=== PATIENT | female | born 1965 | race Caucasian/White ===

== ENCOUNTER 2024-07-10 10:46 | Outpatient (AMB) | payer OTHER, MEDICARE, SELFPAY ==
--- NOTE | 2024-07-10 10:54 | A.OFFVIS_ITS ---
Vital Signs 07/10/24 10:56 Height 5 ft 3 in Weight 253 lb BMI 44.8 BP 180/102 H Blood Pressure Location Rt brachial Position Sitting Intake Visit Reasons: ENP-Mov dis/? tardive dyskinesia Intake Note: Patient presents for movement disorder Allergies chantix Allergy (Mild, Uncoded 07/10/24 10:58) behavior Wellbutrin Adverse Reaction (Unknown, Uncoded 07/10/24 10:57) Hives HPI Comments Details: 59 year old female referred for possible movement disorder Tardive-Dyskenesia like symptoms July is a smoker, with h/o of KATLYN, Fibromyalgia, MDD with anxiety, PTSD and chronic migraines. Her migraines were controlled with Amigov 100mg BID and Imitrex, however her Neurologist Dr. Valverde moved to [place]. She endorses migraines with aura, 3-4 x per week, last for hours to days, tried Botox with no relief. She feels like she is spinning, has nausea, vomiting, sensitivity to sounds and light, balance issues but not smell. She is dropping things and concerned about tremors in left hand >R while texting. She is able to complete all ADLs but does not drive due to depth perception with vision changes and >13-MVAs. She denies floaters, scotomas and blurry vision. She does snore, is obese BMI>44, denies gasping for air, speech or swallowing issues, uses CPAP machine nightly for insomnia. She has been more forgetful and does not remember her appointments. She was hospitalized recently for HTN BP 200/100 and treated with toradol. She did have one fall recently but she tripped in her garage and it was not related to gait or balance. She uses a cane for bilateral knee pain, bone on bone arthritic pain. She is followed by pulmonology, recent [address] Jun 2024. She is being seen for a L. Breast Abscess/infection, surgical consult Jul 11, 2024. She is being treated for the HTN by PCP. 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 Post traumatic stress disorder Alcohol abuse, in remission Kidney stone Osteoarthritis, knee Migraine headache Fibromyalgia Depression with anxiety Hypercholesteremia Benign hypertension Hot flashes Gastro-esophageal reflux disease without esophagitis Mild obstructive sleep apnea Morbid obesity Vitamin D deficiency Polyneuropathy, unspecified Surgical History (Updated 06/28/24 @ 08:19 by Ling Virk MA) History of lithotripsy History of eye surgery Family History (Updated 06/28/24 @ 08:22 by Ling Virk MA) Mother Hypertension Alcohol abuse Father Bypass graft mechanical complication Social History (Updated 06/28/24 @ 08:17 by Ling Virk MA) Patient Tobacco Use Status: Current everyday Tobacco user Cigarette Packs Per Day: 0.25 Review of Systems Const Reports as per HPI, Reports headache(s), Reports snoring and Reports weakness ENT Reports headache(s) Resp Reports snoring Neuro Reports headache(s) and Reports weakness Physical Exam Const General: cooperative, comfortable and no acute distress Nutritional Appearance: obese Orientation/consciousness: patient oriented x3 HEENT Head: Yes normal to inspection Ears: hearing grossly normal bilaterally Face and sinus: Yes normal facial exam and Yes face symmetric Mouth: tongue normal Eyes Pupils: Equal, round and reactive pupils present, Pupils normal by confrontation and Pupil accommodation reflex normal Neck Neck: Yes normal visual inspection, Yes full ROM and Yes supple Resp Effort & Inspection: normal respiratory effort and able to speak in complete sentences Neuro General: patient oriented x3 Cranial nerves: Yes CN's II-XII intact bilaterally, Yes Facial sensation intact/muscles of mastication intact, Yes Equal, round and reactive pupils present, Yes Normal facial strength present, Yes Midline tongue present, Yes Ability to bilaterally rotate head present and Yes Ability to bilaterally elevate shoulders present (difficulty with shoulder shrug) Gait exam (Neuro): Antalgic gait present (gait is off balance) Motor exam (neuro): Abnormal motor strength present (unable to lift with quads and push with triceps my hands to resistance) and Tremors during motor activity present (Mild tremor of the hands L>R) Deep tendon reflexes (DTR's): Right triceps reflex intensity grade: 2+, Left triceps reflex intensity grade: 2+, Rt Biceps (C5, C6): 2+, Left biceps reflex intensity grade: 2+, Right brachioradialis reflex intensity grade: 2+, Left brachioradialis reflex intensity grade: 2+, Right patellar reflex intensity grade: 2+, Left patellar reflex intensity grade: 2+, Right ankle reflex intensity grade: 2+ and Left ankle reflex intensity grade: 2+ Coordination: [id number] test normal and rapid alternating movements of the distal upper extremity normal Romberg Test: Negative Assessment & Plan Assessment & Plan (1) Migraine headache with aura: Code(s): G43.109 - Migraine with aura, not intractable, without status migrainosus Category: Medical Qualifiers: Status migrainosus presence: without status migrainosus Plan: Migraines with Aura will start patient on Sumatriptan 100mg BID Migraines wtih Aura will start patient on Amivog Auto injector 140mg subcutaneously q monthly (2) KATLYN on CPAP: Code(s): G47.33 - Obstructive sleep apnea (adult) (pediatric) Category: Medical Plan: Continue with the use of CPAP nightly and if necessary for daytime Naps as needed, patient continues to experience positive clinical effects. BP is elevated today, CPAP use and compliance >4 hours nightly helps with decreasing HTN and other co-morbidities. (3) Recurrent mild major depressive disorder with anxiety: Code(s): F33.0 - Major depressive disorder, recurrent, mild; F41.9 - Anxiety disorder, unspecified Category: Medical Plan: Patient Education: BP is 180/102 today in clinic will follow up with her to remind her to monitor the BP and use Valsartan exactly as prescribed by her PCP. Magnesium 400 mg PO at bedtime for relaxation. Vitamin D Meditation and yoga nightly can help with anxiety management. Addressed medication over use and strategies for coping with anxiety, lifestyle and diet changes. AHA recommends the Mediterranean diet and daily exercises, walking for weight reduction. Medications: New ketorolac maximum total duration of 5 days from all oral, intranasal, or parenteral formulations 10 mg PO Q6H PRN 1 tab 0RF pain erenumab-aooe (Aimovig Autoinjector) 140 mg subcut .q monthly 1 mL 6RF sumatriptan succinate take 1 tab at onset of headache; if no relief, may repeat 1 tab after at least 2 hrs; max = 2 tabs/24 hrs PO 14 tabs 6RF Coding Level of Care Code Est Pt Level 4 (67349) Complex EM visit Add On G2211 Diagnoses Migraine headache with aura G43.109 Status migrainosus presence: without status migrainosus KATLYN on CPAP G47.33 Recurrent mild major depressive disorder with anxiety F33.0; F41.9
[2024-07-10 10:56] VITALS: BP 180/102; BMI 44.8
== END 2024-07-10 11:38 | disposition home or self-care (01) ==
PROVIDERS: Visit Provider Physician Assistant Medical
DX: G43.E09 Chronic migraine with aura, not intractable, without status migrainosus (principal); G47.33 Obstructive sleep apnea (adult) (pediatric); F33.0 Major depressive disorder, recurrent, mild; F41.9 Anxiety disorder, unspecified
CPT/HCPCS: 99214

== ENCOUNTER 2024-11-13 11:04 | Outpatient (AMB) | payer OTHER, SELFPAY ==
[2024-11-13 11:08] VITALS: BP 116/74; PULSE 79; O2SAT 94; BMI 45.9
--- NOTE | 2024-11-13 11:08 | MHC.OFFVIS ---
Vital Signs 11/13/24 11:08 Height 5 ft 3 in Weight 259 lb 2 oz BMI 45.9 BP 116/74 Blood Pressure Location Lt brachial Position Sitting Pulse 79 Pulse Source Pulse Oximeter Pulse Oximetry (%) 94 Oxygen Delivery Method Room Air Intake Visit Reasons: follow up tardive dyskinesia Intake Note: Patient presents for follow up Dyskinesia. Patient states she has been getting a lot of headaches. 4-5 headaches per week. arms swollen. Left side gets numb occasionally. Allergies chantix Allergy (Mild, Uncoded 07/10/24 10:58) behavior Wellbutrin Adverse Reaction (Unknown, Uncoded 07/10/24 10:57) Hives HPI Comments Details: 59 year old female f/u of with Tardive Dyskinesia like symptoms and Chronic Migraines. July is a smoker, 1/2 pack a day with h/o KATLYN, followed by her Meat Service Team Member Primo Kay and Bharti for Compliance. She washes her mask, changes filters and fills the machine as needed. The snoring has decreased with cpap use, denies gasping for air, speech or swallowing issues, she still has insomnia. She has a h/o of Fibromyalgia she takes 1000mg of Naproxen and 800mg TID Gabapentin. She has MDD with anxiety, along with PTSD and sees her psychologist Dr. Powers at [facility] every 2-3 weeks via telethealth at [facility] She has chronic migraines were controlled with Amigov 100mg BID and Imitrex subcut. She endorses waking up with migraines with aura, 4-5x a week, last for 3-4 hours tried Botox with no relief, and she has seasonal allergies to grass pollen, dander. Imitrex injections are effective with onset of migraine, preventive is Aimovig. Migraines are painful, debilitating, with phonophobia/ photophobia/ with floater and blurry vision smells has nausea, vomiting, vertigo as if she is spinning internally and balance difficulties. She is concerned about tremors, nueropathy, parasthesias in bilateral legs worse at night R>L. She had a brown recluse bite on her r. gluteus and L. breast, ulcerations and wound debridement, it is healing. Memory issues with STM and LTM difficulties, forgetting everything if it is not recorded in her phone. Her BP is now well controlled. REPLACED BY [facility] Medical History Cognitive deficit due to 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 Post traumatic stress disorder Alcohol abuse, in remission Kidney stone Osteoarthritis, knee Migraine headache Fibromyalgia Depression with anxiety Hypercholesteremia Benign hypertension Hot flashes Gastro-esophageal reflux disease without esophagitis Mild obstructive sleep apnea Morbid obesity Vitamin D deficiency Polyneuropathy, unspecified Surgical History History of lithotripsy History of eye surgery Family History Mother Hypertension Alcohol abuse Father Bypass graft mechanical complication Social History Patient Tobacco Use Status: Current everyday Tobacco user Cigarette Packs Per Day: 0.25 Physical Exam Vital Signs: Last Vital Signs Pulse 79 11/13/24 11:08 BP 116/74 11/13/24 11:08 Pulse Ox 94 11/13/24 11:08 Oxygen Delivery Method Room Air 11/13/24 11:08 BMI result Body Mass Index 45.9 Const General: cooperative, comfortable and no acute distress Nutritional Appearance: obese Orientation/consciousness: patient oriented x3 HEENT Head: Yes normal to inspection Ears: hearing grossly normal bilaterally Face and sinus: Yes normal facial exam and Yes face symmetric Mouth: tongue normal Eyes Pupils: Equal, round and reactive pupils present, Pupils normal by confrontation and Pupil accommodation reflex normal Neck Neck: Yes normal visual inspection, Yes full ROM and Yes supple Resp Effort & Inspection: normal respiratory effort and able to speak in complete sentences Neuro General: patient oriented x3 Cranial nerves: Yes CN's II-XII intact bilaterally, Yes Facial sensation intact/muscles of mastication intact, Yes Equal, round and reactive pupils present, Yes Normal facial strength present, Yes Midline tongue present, Yes Ability to bilaterally rotate head present and Yes Ability to bilaterally elevate shoulders present (difficulty with shoulder shrug) Gait exam (Neuro): Antalgic gait present (gait is off balance) Motor exam (neuro): Abnormal motor strength present (unable to lift with quads and push with triceps my hands to resistance) and Tremors during motor activity present (Mild tremor of the hands L>R) Deep tendon reflexes (DTR's): Right triceps reflex intensity grade: 2+, Left triceps reflex intensity grade: 2+, Rt Biceps (C5, C6): 2+, Left biceps reflex intensity grade: 2+, Right brachioradialis reflex intensity grade: 2+, Left brachioradialis reflex intensity grade: 2+, Right patellar reflex intensity grade: 2+, Left patellar reflex intensity grade: 2+, Right ankle reflex intensity grade: 2+ and Left ankle reflex intensity grade: 2+ Coordination: [id number] test normal and rapid alternating movements of the distal upper extremity normal Romberg Test: Negative Assessment & Plan Assessment & Plan (1) Migraine headache with aura: Code(s): G43.109 - Migraine with aura, not intractable, without status migrainosus Category: Medical Qualifiers: Status migrainosus presence: without status migrainosus Intractability: intractable Qualified Code(s): G43.119 - Migraine with aura, intractable, without status migrainosus (2) KATLYN on CPAP: Code(s): G47.33 - Obstructive sleep apnea (adult) (pediatric) Category: Medical (3) Recurrent mild major depressive disorder with anxiety: Code(s): F33.0 - Major depressive disorder, recurrent, mild; F41.9 - Anxiety disorder, unspecified Category: Medical (4) Chronic migraine with aura: Code(s): G43.E09 - Chronic migraine with aura, not intractable, without status migrainosus Category: Medical Qualifiers: Status migrainosus presence: without status migrainosus Intractability: intractable Qualified Code(s): G43.E19 - Chronic migraine with aura, intractable, without status migrainosus Plan Chronic Migraines continue Sumatriptan 6mg subcutn once / PRN 30 days, preventive for migraines. Continue Ubrelvy 50mg PO PRN Migraine with onset of migraine with aura, preventive for migraines. Continue with Aimovog Auto injector 140mg subcutaneously q monthly maintenance therapy for migraines. Insomnia and Fragmented Sleep, may take melatonin 3-5mg PO at night. Sleep Compliance Report Request from Pulmonology Dr. Kay and or BHARTI Medications: New ubrogepant (Ubrelvy) take one 50mg of ubrelvy by mouth with onset of headache, may take one additional table if headache does not abort total 100mg PO daily. 50 mg PO ONCE PRN 30 tabs 1RF headache MDD 100mg G43.E09 - Chronic migraine with aura, not intractable, without status migrainosus Refilled erenumab-aooe (Aimovig Autoinjector) 140 mg subcut .q monthly 1 mL 6RF Patient Instructions: Patient Education: Continue with the use of CPAP nightly and if necessary for daytime naps as needed, patient continues to experience positive clinical effects, will f/u with Dr. Maloney office and [employer] for compliance monoitoring. Sleep Hygiene continue to see behavior therapist as needed, sleep in a dark room with temperatures below 68 degrees, no devices in bed, limit fluids 2 hours prior to bedtime. For Insomnia may diffuse essential oils, take melatonin 3-5mg or ambien or other sleep aid as needed. BMI is elevated patient declined weight management, will focus on diet and lifestyle management. Magnesium 400 mg PO at bedtime for relaxation and Vitamin D AHA recommends the Mediterranean diet and daily exercises, walking for weight reduction. Will consider EMG bilateral foot tremors / Neuropathy/ Parasthesias at next visit. Coding Level of Care Code Est Pt Level 4 (37845) Complex EM visit Add On G2211 Diagnoses Intractable migraine with aura without status migrainosus G43.119 Status migrainosus presence: without status migrainosus Intractability: intractable KATLYN on CPAP G47.33 Recurrent mild major depressive disorder with anxiety F33.0; F41.9 Intractable chronic migraine with aura and without status migrainosus G43.E19 Status migrainosus presence: without status migrainosus Intractability: intractable Time Spent (min) 45 Comment Improving
--- OUTSIDE RECORDS SUMMARY | 2024-11-13 13:40 | XMS_ITS | Encounter Summary ---
Author Organization [facility] Address [address] [place] [address] Care Team Providers Care Plaster Mixer Name Role Phone Brooke Osorio MD Primary Care Prov ider Reason for Visit * Reason Onset Date Comments Rectal Pain 09/17/2024 Encounter Details Date Type Department Care Team (Late st Contact Info) Description 09/17/2024 Telephone Adult Medicine - [facility] [address] [place] [id number] Brooke Osorio MD [address] [place] [address] Rectal Pain Social History Tobacco Use Types Packs/Day Years Used Date Smoking Tobacco: Every Day Cigarettes Last attempted to quit: 10/06/2017 Smokeless Tobacco: Never Alcohol Use Standard Drinks/Week Comments Not Currently 0 (1 standard drink = 0.6 oz pur e alcohol) Interpersonal Safety Answer Date Record ed Physical Abuse 08/31/2024 Verbal Abuse 08/31/2024 Comments No Sex and Gender Information Value Date Recorded Sex Assigned at Not on file Legal Sex Female 3:45 PM EST Gender Identity Not on file Sexual Orientation Not on file documented as of this encounter Progress Notes * Kingston Philip RN - 09/17/2024 4:01 PM EST Left message for pt to please return our call * Brooke Osorio MD - 09/17/2024 3:59 PM EST She should try lidocaine ointment to that area * Kingston Philip RN - 09/17/2024 3:07 PM EST Pt was seen for a wound on the buttocks it is a nasty painful wound not sure if there is eschar or scab but going to need debridement , pt was given tramadol but appointment is tomorrow and pt is scared because this is not helping the pain now * Rachel BabbLadarius - 09/17/2024 2:46 PM EST Patient call requires triage: Symptoms patient is presenting: Pt stated the tramadol that was prescribed is not strong enough andpt is in a lot of pain now.Pt is crying as she has a wound care visit tomorrow and is terrified forthe pain of the would on the right side of the cheek of her buttocks. How long has patient had these symptoms?: n/a For ALL patients calling to schedule any appointment (routine, sick visit, follow up, consult, etc.) in the outpatient setting please ask the following questions: Do you have fever of higher than 101, sore throat with difficulty swallowing or severe shortness ofbreath? no If YES to any of these above symptoms, send a message to triage and do not book. Red dot. If no, an audio or video visit should be booked. Have you had close contact with someone with Coronavirus in the last 14 days? no Have you traveled abroad? no Have you traveled recently to another state outside of [place], [place], [place], [place], [place], [place], [place]? no o If yes, did you quarantine for 14 days or have a negative covid test? no If yes to any of the above, patient is not to be scheduled in office until after 14 day quarantine or negative covid test. If pain or injury related was it due to an accident at work or from a motor vehicle accident? If yes, date of accident/Injury: No If yes, gather 3rd constitution party insurance information Third Green Party Information: n/a PCP: Brooke Osorio MD Payor: [employer] / Plan: [facility] CHOICE PLUS / Product Type: *No Product type* / documented in this encounter Plan of Treatment Upcoming Encounters Date Type Department Care Team (Late st Contact Info) Description 11/30/2024 10:00 AM EDT Medication Management Hypertension Clinic - [facility] [address] [place] [address] Zina Renteria, KaliaD [address] [place] [address] 12/24/2024 10:50 AM EDT Appointment Radiology Department - [address] [address] 12/24/2024 11:20 AM EDT Appointment Radiology Department - [address] [address] 01/16/2025 10:30 AM EDT Office Visit Adult Medicine - [facility] [address] [place] [address] Joesph Perez PA [address] [place] [address] documented as of this encounter Visit Diagnoses Not on filedocumented in this encounter Care Teams Plaster Mixer Relationship Specialty Start Date End Date Brooke Osorio MD [address] [place] [address] PCP - General Internal Medicine 07/10/24 documented as of this encounter
--- OUTSIDE RECORDS SUMMARY | 2024-11-13 13:40 | XMS_ITS | Encounter Summary ---
Author Organization [facility] Address [address] [place] [address] Care Team Providers Care Beamer Hand Name Role Phone Brooke Osorio MD Primary Care Prov ider Reason for Visit * Reason Onset Date Comments Blood Pressure 11/01/2024 152/80 Encounter Details Date Type Department Care Team (Late st Contact Info) Description 11/01/2024 Telephone Adult Medicine - [place] [address] [place] [id number] Brooke Osorio MD [address] [place] [address] Blood Pressure (152/80) Social History Tobacco Use Types Packs/Day Years [...] Progress Notes * Kingston Philip RN - 11/02/2024 8:44 AM EST Pt advised of provider message , pt states that her wound is good and she has enough to get her through the rest of her treatment * FANY Walsh - 11/01/2024 6:10 PM EST Is that blood pressure higher than 120/80? Yes. She still needs to go.. Thank you. * Kingston Philip RN - 11/01/2024 4:56 PM EST Pt states that at wound care her BP was 152/80 pt want to know if she still has to go to the BP clinic * Carly Viera - 11/01/2024 4:50 PM EST Patient called to inform Joesph Perez that when she was an her Wound Care Clinic today her Blood Pressure was 152/80. Patient is double checking if she really needs to go to the Hypertension Clinic that she was referred to or, no. She is trying to avoid going there. Please advise documented in this encounter Plan of Treatment Upcoming Encounters Date Type Department Care Team (Late st Contact Info) Description 11/30/2024 10:00 AM EDT Medication Management Hypertension Clinic - [facility] [address] [place] [address] Zina Renteria, PharmD [address] [place] [address] 12/24/2024 10:50 AM EDT Appointment Radiology Department - [address] [phone] 12/24/2024 11:20 AM EDT Appointment Radiology Department - [address] [phone] 01/16/2025 10:30 AM EDT Office Visit Adult Medicine - [place] [address] [place] [address] Joesph Perez PA [address] [place], [place] documented as of this encounter Visit Diagnoses Not on filedocumented in this encounter Care Teams Beamer Hand Relationship Specialty Start Date End Date Brooke Osorio MD [address], [place] PCP - General Internal Medicine 07/10/24 documented as of this encounter
--- OUTSIDE RECORDS SUMMARY | 2024-11-13 13:40 | XMS_ITS | Encounter Summary ---
Author Organization [facility] [address] Address [address] [place] [address] Care Team Providers Care Consumer Loan Officer Name Role Phone Brooke Osorio MD Primary Care Prov ider Reason for Visit * Reason Onset Date Comments Medication Problem 10/24/2024 Encounter Details Date Type Department Care Team (Late st Contact Info) Description 10/24/2024 Telephone Adult Medicine - [place] [address] [place] [phone] Brooke Osorio MD [address] [place] [address] Medication Problem Social History Tobacco Use Types Packs/Day Years [...] as of this encounter Progress Notes * Ailyn Angel MA - 11/12/2024 10:15 AM EDT Shanetaurus Colon2 weeks ago NL Pt calling back , states insurance told her that none of the medications will be covered. * Brooke Donovan MA - 10/25/2024 4:04 PM EST Okay, we can try to submit a PA then for the Zepbound. tirzepatide, weight loss, (ZEPBOUND) 5 mg/0.5 mL injection : Inject 0.5 mL (5 mg total) under the skin every 7 (seven) days DISP 2 ML * Shane Colon - 10/25/2024 3:47 PM EST Pt calling back , states insurance told her that none of the medications will be covered. * Brooke Donovan MA - 10/24/2024 2:31 PM EST - Called [facility], Zepbound not covered under patient's insurance. Pharmacy states they did not receive a PA request from the insurance. - pt advised to contact insurance to find out what is covered for these types of medications and then to let us know * Carly Viera - 10/24/2024 11:24 AM EST Medication Problem: What is the name of the medication patient is having a problem with?: ZEPBOUND What is the problem?: patient called stating pharmacy is looking for alternative for ZEPBOUND . Please advise Who is calling about the problem? : The patient Who is patients PCP?: Brooke Osorio MD Payor: [employer] / Plan: [employer] PPO / Product Type: *No Product type* / documented in this encounter Plan of Treatment Upcoming Encounters Date Type Department Care Team (Late st Contact Info) Description 11/30/2024 10:00 AM EDT Medication Management Hypertension Clinic - [address] [place] [address] Zina Renteria, PharmD [address] [place] [address] 12/24/2024 10:50 AM EDT Appointment Radiology Department - [address] [phone] 12/24/2024 11:20 AM EDT Appointment Radiology Department - [address] [phone] 01/16/2025 10:30 AM EDT Office Visit Adult Medicine - [place] [address] [place] [phone] Joesph Perez PA [address] [place], [place] documented as of this encounter Visit Diagnoses Not on filedocumented in this encounter Care Teams Consumer Loan Officer Relationship Specialty Start Date End Date Brooke Osorio MD [address] [place] [address] PCP - General Internal Medicine 07/10/24 documented as of this encounter
--- OUTSIDE RECORDS SUMMARY | 2024-11-13 13:40 | XMS_ITS | Clinical Summary ---
Author Organization [facility] [address] [facility] Address [address] [place] [address] Phone Care Team Providers Care Research And Development Tester Name Role Phone Brooke Osorio MD Primary Care Prov ider Allergies Active Allergy Reactions Criticality Noted Date Comments Bee Sting Kit Anaphylaxis,Swelling High 07/10/2024 Bupropion Hives Medium 10/04/2017 Hydrochlorothiazide Other High 01/30/2019 Causes hyponatremia Other Anaphylaxis High 04/18/2023 Varenicline Other Low 10/04/2017 Suicidal ideation Medications albuterol HFA (PROAIR HFA ; PROVENTIL HFA ; VENTOLIN HFA) 90 mcg/actuation inhaler INHALE 2 PUFFS 4 TIMES A DAY NEEDED FOR WHEEZING/SHORT NESS OF BREATH 022 Active ALPRAZolam (XANAX) 1 mg tablet TAKE 1 TABLET BY MOUTH 3 TIMES A DAY NEEDED FOR SLEEP 018 Active busPIRone (BUSPAR) 10 mg tablet TAKE 1/2 TABLET BY MOUTH TWICE A DAY FOR 1 WEEK THEN TAKE 1 TAB TWICE A DAY THEREAFTER 022 Active diclofenac (VOLTAREN) 1 % topical gel Apply 4 g topically 2 times daily. 024 Active fluticasone propion-salmetero L (Advair Diskus) 500-50 mcg/dose diskus inhaler INHALE 1 PUFF BY MOUTH 2 TIMES A DAY 022 Active gabapentin (NEURONTIN) 800 mg tablet Take 1 Tablet by mouth 3 times daily. Active ipratropium (ATROVENT) 21 mcg (0.03 %) nasal spray INSTILL 2 SPRAYS INTO BOTH NARES DAILY AT BEDTIME FOR 30 DAYS Active nicotine (NICODERM CQ) 21 mg/24 hr APPLY 1 PATCH TOPICALLY DAILY Active traZODone (DESYREL) 300 mg tablet Take 400 mg by mouth at bedtime. Active venlafaxine XR (EFFEXOR-XR) 150 mg 24 hr capsule Take 1 Cap by mouth 2 times daily for 360 days. Active azelastine (ASTELIN) 137 mcg (0.1 %) nasal spray 2 Sprays by Each Nare route 2 times daily. Use in each nostril as directed Active naproxen (NAPROSYN) 500 mg tablet TAKE 1 TABLET BY MOUTH TWICE A DAY WITH MEALS 180 tablet 1 Active verapamil ER (VERELAN) 120 mg 24 hr capsule Take 1 capsule (120 mg total) by mouth at bedtime. Take 1 Capsule by mouth at bedtime. 90 capsule 1 2024 Active ondansetron ODT (ZOFRAN-ODT) 8 mg disintegrating tablet Take 1 tablet (8 mg total) by mouth if needed for nausea or vomiting. 20 tablet Active omeprazole (PriLOSEC) [address] capsule TAKE 1 CAPSULE BY MOUTH EVERY DAY 90 capsule 1 Active rosuvastatin (CRESTOR) 40 mg tablet TAKE 1 TABLET BY MOUTH EVERY DAY 90 tablet 1 Active fluticasone-umecl idinium-vilantero l (TRELEGY ELLIPTA) 100-62.5-25 mcg inhaler Inhale by mouth. 2024 Active SUMAtriptan (IMITREX) 6 mg/0.5 mL subcutaneous solution pen PLEASE SEE ATTACHED FOR DETAILED DIRECTIONS Active doxycycline hyclate (VIBRA-TABS) 100 mg tablet TAKE 1 TABLET BY MOUTH TWICE A DAY FOR 14 DAYS. LIMIT SUN EXPOSURE WHILE TAKING. Active hydrocolloid dressing 4 X 5 bandage Apply to wound every 3 days 1 each 1 024 Active diphenoxylate-atr opine (LOMOTIL) 2.5-0.025 mg per tablet TAKE 1 TABLET BY MOUTH IF NEEDED FOR DIARRHEA. 30 tablet 3 025 Active tirzepatide, weight loss, (ZEPBOUND) 5 mg/0.5 mL injectionIndicati ons:KATLYN (obstructive sleep apnea),Morbid obesity (CMS/[facility]),Class 3 severe obesity due to excess calories with serious comorbidity and body mass index (BMI) of 45.0 to 49.9 in adult (CMS/[facility]) Inject 0.5 mL (5 mg total) under the skin every 7 (seven) days. 2 mL 025 Active oxyCODONE-acetami nophen (PERCOCET) 5-325 mg per tabletIndications :Chronic wound Take 1 tablet by mouth every 8 (eight) hours if needed for severe pain. Max Daily Amount: 3 tablets 20 tablet 025 Active valsartan (DIOVAN) 320 mg tablet TAKE 1 TABLET BY MOUTH 1 TIME EACH DAY. 90 tablet 1 025 Active cyclobenzaprine (FLEXERIL) 10 mg tablet Take 1 tablet (10 mg total) by mouth 3 (three) times a day if needed for muscle spasms. 30 tablet 5 025 Active cyclobenzaprine (FLEXERIL) 10 mg tablet Take 1 Tablet by mouth 3 times daily as needed for Muscle spasms. 024 2024 Discontinued(R eorder) estradioL (ESTRACE) 0.01 % (0.1 mg/gram) vaginal cream Apply a pea-sized amount of cream with your finger into the vagina daily at bedtime for 2 weeks, then two times a week at night. 023 2024 Discontinued(P atient Discharge) valsartan (DIOVAN) 320 mg tablet Take 1 tablet (320 mg total) by mouth 1 (one) time each day. 30 each 2 024 2024 Discontinued traMADoL (ULTRAM) 50 mg tablet Take 1 tab prior to debreedment for wound- ONLY TO BE USED PRIOR TO WOUND APPT 15 tablet 025 2024 Discontinued oxyCODONE-acetami nophen (PERCOCET) 5-325 mg per tabletIndications :Chronic wound Take 1 tablet by mouth every 8 (eight) hours if needed for severe pain. Max Daily Amount: 3 tablets 20 tablet 025 2024 Discontinued Active Problems Problem Noted Date Diagnosed Date Prediabetes 09/05/2024 Polysubstance dependence 06/22/2024 Nephrolithiasis 06/22/2024 Panic disorder 06/22/2024 IUD threads lost 04/21/2023 Overview (06/14/2024): Added automatically from request for surgery [id number] Overactive bladder 04/21/2023 Overview (06/14/2024): Added automatically from request for surgery [id number] AMNA (stress urinary incontinence, female) 2022 Overview (06/14/2024): Added automatically from request for surgery [id number] Peripheral polyneuropathy 08/26/2021 Vitamin D deficiency 08/26/2021 Morbid obesity 10/29/2019 GERD (gastroesophageal reflux disease) 8 KATLYN (obstructive sleep apnea) 01/14/2018 Overview (06/14/2024): No diagnostic study on file.? 08/06/2021 [facility] Polysomnogram PAP treatment study. Date 08/26/2021. Wt 249#; BMI 44; SE 90 % SM 98 %; spent 6 % of the study in REM. On CPAP @ 11; AHI 2.4, average oxygen saturation was 90%. For the entire study, PLMs ~0. 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 Depression with anxiety 10/04/2017 Overview (06/14/2024): Psychologist, Dr Gwen Torres, [facility] PTSD (post-traumatic stress disorder) 10/04/2017 Fibromyalgia 10/04/2017 Overview (06/14/2024): historic Pt tried and failed Gabapentin 300mg prescribed by previous PCP Hypercholesteremia 10/04/2017 Hypertension 10/04/2017 Kidney stones 10/04/2017 Migraine headache 10/04/2017 Overview (06/14/2024): Sees Dr Valverde Osteoarthritis, knee 10/04/2017 Encounters Date Type Department Care Team Description 11/01/2024 Telephone Adult [address] [phone] Brooke Montes MD Blood Pressure (152/80) 10/24/2024 Telephone Adult [facility] [address] [place] [address] Brooke Montes MD Medication Problem 10/19/2024 11:15 AM EST Office Visit Adult [address] [phone] Joesph Perez PA Uncontrolled hypertension (Primary Dx); KATLYN (obstructive sleep apnea); Morbid obesity (CMS/HCC); Chronic wound; Class 3 severe obesity due to excess calories with serious comorbidity and body mass index (BMI) of 45.0 to 49.9 in adult (CMS/HCC); Cigarette smoker 10/04/2024 Telephone Adult [facility] [address] [place] [phone] Brooke Montes MD 09/20/2024 Telephone Adult [facility] [address] [place] [address] Brooke Montes MD Wound Care 09/17/2024 Telephone Adult [facility] [address] [place] [phone] Brooke Montes MD Rectal Pain 09/07/2024 Telephone Adult [facility] [address] [place] [phone] Brooke Montes MD Medication Problem 09/06/2024 Telephone Adult Medicine - [place] [address] [place] [phone] Brooke Montes MD Fitting for DME (hydrocolloid dressing 4 X 5 bandage) 09/04/2024 2:00 PM EST Office Visit Adult Medicine - [place] [address] [place] [phone] Sis Ruff PA Wound of right buttock, initial encounter (Primary Dx); Hypertension, unspecified type 09/03/2024 Telephone Gastroenterology - [address] [phone] Gabi Vargas [place] Results 08/31/2024 1:06 PM EST Anesthesia Event [facility] Endoscopy [address] [place] [phone] Deng Ballard MD Walsh, Michael, DO 08/31/2024 11:51 AM EST - 08/31/2024 11:59 PM EST Hospital Encounter [facility] [address] [place] [phone] Alvaro Lebron MD Guerin, Erik R, CRNA Saliga, Jesse L, MD Colon cancer screening Discharge Disposition: Home or Self Care 08/31/2024 Telephone Adult Medicine - [place] [address] [place] [phone] Brooke Montes MD triage call back; really bad butt cellulitus 08/27/2024 Telephone Gastroenterology - [address] [phone] Alvaro Lebron MD 08/24/2024 1:43 PM EST - 08/24/2024 11:59 PM EST Hospital Encounter Radiology Department - [address] [phone] Left breast mass Discharge Disposition: Home or Self Care 08/24/2024 Telephone Gastroenterology - [address] [phone] Alvaro Lebron MD 08/23/2024 Telephone Adult Medicine - [place] [address] [place] [phone] Brooke oMntes MD 08/23/2024 Telephone Adult Medicine - [place] [address] [place] [phone] Brooke Montes MD from Last 3 Months Immunizations Name Administration Dates Next Due Influenza trivalent, with pr eservative (Fluzone; Afluria) 6mo and older 05/11/2018,11/18/2011 Moderna SARS-CoV-2 COVID-19, mRNA, LNP-S, preservative free 12/04/2020 Surgical History Surgery Date Site/Laterality Comments EYE SURGERY PROCEDURE: HISTORICAL EYE SURGERY; COMMENT: lazy eye LITHOTRIPSY PROCEDURE: HISTORICAL LITHOTRIPSY; COMMENT: 10 TUBAL LIGATION PROCEDURE: HISTORICAL TUBAL LIGATION BREAST BIOPSY PROCEDURE: BX BREAST; PERC NEEDLE CORE W/IMAG GUID Medical History Medical History Date Comments KATLYN (obstructive sleep apnea) 01/14/2018 DX :KATLYN (obstructive sleep apnea) GERD (gastroesophageal reflux disease) 01/14/2018 DX:GERD (gastroesophageal reflux disease) Overactive bladder AMNA (stress urinary incontinence, female) Peripheral neuropathy Vitamin D deficiency Morbid obesity (CMS/HCC) Alcohol abuse IN REMISSION Depression Anxiety PTSD (post-traumatic stress disorder) Fibromyalgia Hypertension Migraine headache Osteoarthritis Presence of neurostimulator FOR BLADDER CONTROL Family History Medical History Relation Name Comments Other: bypass Father Alcohol abuse Mother Hypertension Mother Relation Name Status Comments Father Mother (Age 59) brain canc er Social History Tobacco Use Types Packs/Day Years Used Date Smoking Tobacco: Every Day Cigarettes Last attempted to quit: 10/06/2017 Smokeless Tobacco: Never Tobacco Cessation:Ready to Q uit: Yes; Counseling Given: Not Answered Alcohol Use Standard Drinks/Week Comments Not Currently 0 (1 standard drink = 0.6 oz pur e alcohol) Interpersonal Safety Answer Date Record ed Physical Abuse 08/31/2024 Verbal Abuse 08/31/2024 Comments No Sex and Gender Information Value Date Recorded Sex Assigned at Not on file Legal Sex Female 3:45 PM EST Gender Identity Not on file Sexual Orientation Not on file Obstetrics History Last Filed Vital Signs Vital Sign Reading Time Taken Comments Blood Pressure 152/74 10/19/2024 11:39 AM EST Pulse 80 10/19/2024 11:18 AM EST Temperature 36.8 ??C (98.3 ??F) 10/19/2024 11:[address] Respiratory Rate 16 08/31/2024 1:53 PM EST Oxygen Saturation 97% 08/31/2024 1:53 PM EST Inhaled Oxygen Concentration - - Weight 117 kg (257 lb) 10/19/2024 11:18 AM EST Height 160 cm (5' 3 ) 10/19/2024 11:18 AM EST Body Mass Index 45.53 10/19/2024 11:18 AM EST Plan of Treatment Upcoming Encounters Date Type Department Care Team (Late st Contact Info) Description 11/30/2024 10:00 AM EDT Medication Management Hypertension Clinic - [address] [phone] Zina Renteria, PharmD [address] [place] [phone] 12/24/2024 10:50 AM EDT Appointment Radiology Department - [address] [phone] 12/24/2024 11:20 AM EDT Appointment Radiology Department - [address] [phone] 01/16/2025 10:30 AM EDT Office Visit Adult Medicine - [place] [address] [place] [phone] Joesph Perez PA [address] [place] [address] Health Maintenance Due Date Last Done Comments DTaP,Tdap,and Td Vaccines (1 - Tdap) 1986 Hepatitis A Vaccines (1 of 2 - Risk 2-dose series) 1986 Hepatitis B Vaccines (1 of 3 - 19+ 3-dose series) 1986 Pneumococcal Vaccine: 50+ Years (1 of 2 - PCV) 1986 Pneumococcal Vaccine: Pediatrics (0 to 5 Years) and At-Risk Patients (6 to 64 Years) (1 of 2 - PCV) 1986 Cervical Cancer Screening: P ap Smear 1988 Zoster Vaccines (1 of 2) 2017 Depression Screening 08/14/2022 HIV Screening 08/14/2022 Hepatitis C Screening 08/14/2022 Social Influencers of Health Screening 08/14/2022 COVID-19 Vaccine (3 - 2023-2 5 season) 2024 01/01/2021, 12/04/2020 Influenza Vaccine (#1) 2024 8, 11/18/2011 Hypertension/CHF/CAD Annual BMP Blood Test 09/04/2025 09/04/2024, 07/26/2024, 04/11/2023 Breast Cancer Screening 06/28/2026 06/28/20, 06/28/2024, 12/05/2023 Cholesterol Screening (Lipid Panel) 07/26/2029 07/26/2024, 07/18/2023 Colorectal Cancer Screening: Colonoscopy 08/31/2034 08/31/2024 HIB Vaccines Aged Out No longer eligi ble based on patient's age to complete this topic HPV Vaccines Aged Out No longer eligi ble based on patient's age to complete this topic IPV Vaccines Aged Out No longer eligi ble based on patient's age to complete this topic MMR Vaccines Aged Out No longer eligi ble based on patient's age to complete this topic Meningococcal ACWY Vaccine Aged Out N o longer eligible based on patient's age to complete this topic Meningococcal B Vacine Aged Out No lo nger eligible based on patient's age to complete this topic RSV Immunization Patients Under 20 months Aged Out No longer eligible b ased on patient's age to complete this topic Varicella Vaccines Aged Out No longer eligible based on patient's age to complete this topic Procedures Procedure Name Priority Date/Time Associated Diagnosis Comments CBC WITH AUTO DIFFERENTIAL Routine 09/04/2024 2:43 PM EST Routine general medical examination at a health care facility CBC AND DIFFERENTIAL Routine 09/04/2024 2:43 PM EST Routine general medical examination at a health care facility BASIC METABOLIC PANEL Routine 09/04/2024 2:43 PM EST Hyponatremia HEMOGLOBIN A1C Routine 09/04/2024 2:43 PM EST Elevated glucose COLONOSCOPY Routine 08/31/2024 1:32 PM EST Colon cancer screening TISSUE EXAM Routine 08/31/2024 1:23 PM EST Colon cancer screening US BREAST LIMITED LEFT Routine 08/24/2024 2:01 PM EST Left breast mass LIPID PANEL WITH REFLEX TO DIRECT LDL Routine 07/26/2024 9:59 AM EST Routine general medical examination at a [facility] facility DIAGNOSTIC MAMMOGRAPHY WITH CAD UNILATERAL Routine 06/28/2024 2:38 PM EDT Unspecified lump in unspecified breast from Last 3 Months or Most Recently Relevant to Health Maintenance Results * CBC auto differential (09/04/2024 2:43 PM EST) WBC 7.2 4.8 - 10.8 K/mcL LAB HEMETOLOGY METHOD 09/04/2024 4:49 PM EST [facility] RBC 4.40 3.80 - 4.80 M/mcL LAB HEMETOLOGY METHOD 09/04/2024 4:49 PM EST [facility] Hemoglobin 12.7 11.5 - 16.0 g/dL LAB HEMETOLOGY METHOD 09/04/2024 4:49 PM [facility] Hematocrit 38.8 35.0 - 47.0 % LAB HEMETOLOGY METHOD 09/04/2024 4:49 PM [facility] MCV 88.6 79.0 - 98.0 FL LAB HEMETOLOGY METHOD 09/04/2024 4:49 PM [facility] MCH 29.0 27.0 - 32.0 pcg LAB HEMETOLOGY METHOD 09/04/2024 4:49 PM [facility] MCHC 32.7 32.0 - 37.0 g/dL LAB HEMETOLOGY METHOD 09/04/2024 4:49 PM [facility] RDW 13.2 11.0 - 15.0 % LAB HEMETOLOGY METHOD 09/04/2024 4:49 PM [facility] Platelets 223 130 - 400 K/mcL LAB HEMETOLOGY METHOD 09/04/2024 4:49 PM [facility] MPV 10.3 7.0 - 11.0 FL LAB HEMETOLOGY METHOD 09/04/2024 4:49 PM [facility] NRBC 0.0 <1.0 % LAB HEMETOLOGY METHOD 09/04/2024 4:49 PM [facility] NRBC Absolute 0.00 <0.10 K/mcL LAB HEMETOLOGY METHOD 09/04/2024 4:49 PM [facility] Neutrophils Relative 57.4 % LAB HEMETOLOGY METHOD 09/04/2024 4:49 PM [facility] Lymphocytes Relative 32.7 % LAB HEMETOLOGY METHOD 09/04/2024 4:49 PM [facility] Monocytes Relative 4.3 % LAB HEMETOLOGY METHOD 09/04/2024 4:49 PM [facility] Eosinophils Relative 4.6 % LAB HEMETOLOGY METHOD 09/04/2024 4:49 PM [facility] Basophils Relative 0.7 % LAB HEMETOLOGY METHOD 09/04/2024 4:49 PM [facility] Immature Granulocytes Relative 0.3 % LAB HEMETOLOGY METHOD 09/04/2024 4:49 PM [facility] Neutrophils Absolute 4.15 1.50 - 7.00 K/mcL LAB HEMETOLOGY METHOD 09/04/2024 4:49 PM EST [facility] Lymphocytes Absolute 2.36 1.00 - 5.00 K/mcL LAB HEMETOLOGY METHOD 09/04/2024 4:49 PM EST [facility] Monocytes Absolute 0.31 0.20 - 1.00 K/mcL LAB HEMETOLOGY METHOD 09/04/2024 4:49 PM EST [facility] Eosinophils Absolute 0.33 0.00 - 0.50 K/mcL LAB HEMETOLOGY METHOD 09/04/2024 4:49 PM EST [facility] Basophils Absolute 0.05 0.00 - 0.20 K/mcL LAB HEMETOLOGY METHOD 09/04/2024 4:49 PM EST [facility] Immature Granulocytes Absolute 0.02 0.00 - 0.03 K/mcL LAB HEMETOLOGY METHOD 09/04/2024 4:49 PM EST [facility] Blood Venous blood specimen / Unknown Venipuncture / Unknown 09/04/2024 2:43 PM EST 09/04/2024 2:43 PM EST [facility] LAB BLOOD ORDERABLES Final Result [facility] [address] [place] [address], * Hemoglobin A1c (09/04/2024 2:43 PM EST) Hemoglobin A1C 6.1 <6.5 % LAB CHEMISTRY METHOD 09/04/2024 8:09 PM EST [facility] Mean Bld Glu Estim. 128 mg/dL LAB CHEMISTRY METHOD 09/04/2024 8:09 PM EST [facility] Blood Venous blood specimen / Unknown Venipuncture / Unknown 09/04/2024 2:43 PM EST 09/04/2024 2:43 PM EST [facility] LAB BLOOD ORDERABLES Final Result [facility] [address] [place] [address], * Basic metabolic panel (09/04/2024 2:43 PM EST) Sodium 135 133 - 145 mmol/L LAB CHEMISTRY METHOD 09/04/2024 4:58 PM [facility] Potassium 4.3 3.5 - 5.5 mmol/L LAB CHEMISTRY METHOD 09/04/2024 4:58 PM [facility] Chloride 107 96 - 110 mmol/L LAB CHEMISTRY METHOD 09/04/2024 4:58 PM [facility] CO2 24 21 - 32 mmol/L LAB CHEMISTRY METHOD 09/04/2024 4:58 PM [facility] Anion Gap 4 3 - 11 LAB CHEMISTRY METHOD 09/04/2024 4:58 PM [facility] Glucose 93 70 - 100 mg/dL LAB CHEMISTRY METHOD 09/04/2024 4:58 PM [facility] BUN 13 5 - 25 mg/dL LAB CHEMISTRY METHOD 09/04/2024 4:58 PM [facility] Creatinine 1.00 0.50 - 1.10 mg/dL LAB CHEMISTRY METHOD 09/04/2024 4:58 PM [facility] eGFR 66 >=60 mL/min/1. 73m2 LAB CHEMISTRY METHOD 09/04/2024 4:58 PM [facility] Comment:Calculation based on the??Chronic Kidney Disease Epidemiology Collaboration (CKD-EPI) equation refit??without adjustment for race. BUN/Creatinine Ratio 13.0 LAB CHEMISTRY METHOD 09/04/2024 4:58 PM [facility] Calcium 8.6 8.5 - 10.5 mg/dL LAB CHEMISTRY METHOD 09/04/2024 4:58 PM [facility] Blood Venous blood specimen / Unknown Venipuncture / Unknown 09/04/2024 2:43 PM EST 09/04/2024 2:43 PM EST [facility] LAB BLOOD ORDERABLES Final Result Performing Organization Address [facility]State/[facility] Co de Phone Number [facility] [address] [place] [address], * COLONOSCOPY Anesthesia - MAC; [facility] (08/31/2024 1:32 PM EST) Anatomical Region Laterality Modality Endoscopy 08/31/2024 1:08 PM EST Impressions 08/31/2024 1:33 PM EST - Diverticulosis in the left colon. ? - The examination was otherwise normal on direct and ? retroflexion views. ? - Biopsies were taken with a cold forceps from the ? entire colon for evaluation of microscopic colitis. Recommendation: ?- Patient has a contact number available for ? emergencies. The signs and symptoms of potential ? delayed complications were discussed with the patient. ? Return to normal activities tomorrow. Written ? discharge instructions were provided to the patient. ? - Resume previous diet. ? - Continue present medications. ? - Await pathology results. ? - Repeat colonoscopy in 10 years for screening ? purposes. Narrative 08/31/2024 1:33 PM EST [facility] Patient Name: July Styles Procedure Date: 08/31/2024 1:08 PM Date of : 1965 Age: 59 Gender: Female Note Status: Finalized Attending MD: Alvaro Lebron MD, Procedure Date No Time: 08/31/2024 Procedure: ? Colonoscopy Indications: ? Screening for colorectal malignant neoplasm Providers: ? Alvaro Lebron MD Referring MD: ?Alvaro Lebron MD Medicines: ? Monitored Anesthesia Care Complications: ? No immediate complications. Estimated Blood Loss: ? Estimated blood loss: none. Procedure: ? After I obtained informed consent, the scope was ? passed under direct vision. Throughout the procedure, ? the patient's blood pressure, pulse, and oxygen ? saturations were monitored continuously. The Olympus ? Colonoscope was introduced through the anus and ? advanced to the cecum, identified by appendiceal ? orifice and ileocecal valve. The colonoscopy was ? performed without difficulty. The patient tolerated ? the procedure well. The quality of the bowel ? preparation was adequate. Findings: ?A few small and large-mouthed diverticula were found ? in the left colon. ? The exam was otherwise without abnormality on direct ? and retroflexion views. ? Biopsies for histology were taken with a cold forceps ? from the entire colon for evaluation of microscopic ? colitis. She relates a distal history of colitis with ? Dr. Tapia. I did not see colitis, but did take ? biopsies. MD Alvaro Cabrera MD 08/31/2024 1:33:13 PM This report has been signed electronically.Alvaro Lebron MD Number of Addenda: 0 Note Initiated On: 08/31/2024 1:08 PM Scope In: Scope Out: ? Endoscopy Department at [facility] - [address] [place] [address], ? [place] [phone] Procedure Note Alvaro Lebron MD - 08/31/2024 [facility] Patient Name: July Styles Procedure Date: 08/31/2024 1:08 PM Date of : 1965 Age: 59 Gender: Female Note Status: Finalized Attending MD: Alvaro Lebron MD, Procedure Date No Time: 08/31/2024 Procedure: Colonoscopy Indications: Screening for colorectal malignant neoplasm Providers: Alvaro Lebron MD Referring MD: Alvaro Lebron MD Medicines: Monitored Anesthesia Care Complications: No immediate complications. Estimated Blood Loss: Estimated blood loss: none. Procedure: After I obtained informed consent, the scope was passed under direct vision. Throughout theprocedure, the patient's blood pressure, pulse, and oxygen saturations were monitored continuously. TheOlympus Colonoscope was introduced through the anus and advanced to the cecum, identified by appendiceal orifice and ileocecal valve. The colonoscopy was performed without difficulty. The patient tolerated the procedure well. The quality of the bowel preparation was adequate. Findings: A few small and large-mouthed diverticula werefound in the left colon. The exam was otherwise without abnormality ondirect and retroflexion views. Biopsies for histology were taken with a coldforceps from the entire colon for evaluation of microscopic colitis. She relates a distal history of colitiswith Dr. Tapia. I did not see colitis, but did take biopsies. MD Alvaro Cabrera MD 08/31/2024 1:33:13 PM This report has been signed electronically.Alvaro Lebron MD Number of Addenda: 0 Note Initiated On: 08/31/2024 1:08 PM Scope In: Scope Out: Endoscopy Department at [facility] - [address] [place] [id number] IMPRESSION: - Diverticulosis in the left colon. - The examination was otherwise normal on directand retroflexion views. - Biopsies were taken with a cold forceps from the entire colon for evaluation of microscopiccolitis. Recommendation: - Patient has a contact number available for emergencies. The signs and symptoms of potential delayed complications were discussed with thepatient. Return to normal activities tomorrow. Written discharge instructions were provided to thepatient. - Resume previous diet. - Continue present medications. - Await pathology results. - Repeat colonoscopy in 10 years for screening purposes. us Alvaro Lebron MD GI~PROCEDURE ORDERABLES Final R esult * Tissue exam (08/31/2024 1:23 PM EST) Final Diagnosis Colon, random biopsies: Unremarkable colonic mucosa No microscopic colitis identified 09/03/2024 10:26 AM [facility] Gross Description A. Colon, random colon biopsies: Labeled random colon . Received in formalin are seven irregular nuñez mucosal tissue fragments, ranging from 0.2 cm to 0.6 cm in greatest dimension, which are wrapped in paper and submitted in toto in one cassette, seven pieces, multiple levels on one slide. [place] 09/03/2024 10:26 AM [facility] Disclaimer Unless otherwise specified, all tissue is 10% NB formalin fixed and paraffin embedded. 09/03/2024 10:26 AM [facility] Tissue Colon structure / Unknown 08/31/2024 1:23 PM EST 08/31/2024 3:19 PM EST us Alvaro Lebron MD LAB PATHOLOGY ORDERABLES Final Result [facility] [address] [place] [address], * US Breast Limited Left (08/24/2024 2:01 PM EST) Anatomical Region Laterality Modality Breast Left Ultrasound 08/24/2024 2:07 PM EST Impressions 08/24/2024 2:38 PM EST IMPRESSION: Interval decrease in size of the mixed echogenicity lesion in the left breast at 9 o'clock, most likely representing resolving hematoma. ??Follow-up ultrasound is recommended in 4 months. ??At that time mammogram would also ??be performed. ??Appointment is scheduled. BI-RADS CATEGORY: 3 - PROBABLY BENIGN RECOMMENDATION: Diagnostic Ultrasound in 6 Months is recommended for the Left Breast. -------- FINAL REPORT -------- Dictated By: Letty Rowan Dictated Date: 08/24/2024 14:07 ET Assigned Physician: Letty Rowan Reviewed and Electronically Signed By: Letty Rowan Signed Date: 08/24/2024 14:38 ET Workstation ID: [id number] Transcribed By: Self Edit Transcribed Date: 08/24/2024 14:07 ET Narrative 08/24/2024 2:38 PM EST Targeted ultrasound of the left breast. CLINICAL: 59 years old, Female, 2 months follow-up on probable hematoma in the left breast at 9 o'clock.. COMPARISON: Prior ultrasound from 06/28/2024. ?? TECHNIQUE: Targeted ultrasonographic evaluation of the area of concern in the left breast was performed. FINDINGS: There is significant interval decrease in size in the mixed echogenicity superficial lesion at 9 o'clock, 5 cm from the nipple which on today's study measures 2 x 1.2 x 1.8 cm, previously 3.6 x 2.5 cm. ??There is probably reactive increased blood flow. Patient refused to have mammogram today because she had abscess after spider bite in the lateral breast which was treated and resolving. Procedure Note Letty Rowan MD - 08/24/2024 Targeted ultrasound of the left breast. CLINICAL: 59 years old, Female, 2 months follow-up on probable hematoma inthe left breast at 9 o'clock.. COMPARISON: Prior ultrasound from 06/28/2024. TECHNIQUE: Targeted ultrasonographic evaluation of the area of concern inthe left breast was performed. FINDINGS: There is significant interval decrease in size in the mixed echogenicitysuperficial lesion at 9 o'clock, 5 cm from the nipple which on today'sstudy measures 2 x 1.2 x 1.8 cm, previously 3.6 x 2.5 cm. There isprobably reactive increased blood flow. Patient refused to have mammogram today because she had abscess afterspider bite in the lateral breast which was treated and resolving. IMPRESSION: IMPRESSION: Interval decrease in size of the mixed echogenicity lesion in the leftbreast at 9 o'clock, most likely representing resolving hematoma.Follow-up ultrasound is recommended in 4 months. At that time mammogramwould also be performed. Appointment is scheduled. BI-RADS CATEGORY: 3 - PROBABLY BENIGN RECOMMENDATION: Diagnostic Ultrasound in 6 Months is recommended for the Left Breast. -------- FINAL REPORT -------- Dictated By: Letty Rowan Dictated Date: 08/24/2024 14:07 ET Assigned Physician: Letty Rowan Reviewed and Electronically Signed By: Letty Rowan Signed Date: 08/24/2024 14:38 ET Workstation ID: [id number] Transcribed By: Self Edit Transcribed Date: 08/24/2024 14:07 ET [facility] Final Result * Lipid panel with reflex to direct LDL (07/26/2024 9:59 AM EST) Cholesterol 154 0 - 200 mg/dL LAB CHEMISTRY METHOD 07/26/2024 12:20 PM [facility] Triglycerides 96 0 - 150 mg/dL LAB CHEMISTRY METHOD 07/26/2024 12:20 PM [facility] HDL 61 >=40 mg/dL LAB CHEMISTRY METHOD 07/26/2024 12:20 PM [facility] LDL Calculated 74 0 - 100 mg/dL LAB CHEMISTRY METHOD 07/26/2024 12:20 PM [facility] VLDL Cholesterol Robin 19.2 mg/dL LAB CHEMISTRY METHOD 07/26/2024 12:20 PM [facility] Non HDL Chol. (LDL+VLDL) 93 <145 mg/dL LAB CHEMISTRY METHOD 07/26/2024 12:20 PM [facility] Chol/HDL Ratio 2.5 0.0 - 4.4 LAB CHEMISTRY METHOD 07/26/2024 12:20 PM [facility] Blood Venous blood specimen / Unknown Venipuncture / Unknown 07/26/2024 9:59 AM EST 07/26/2024 9:59 AM EST us Sis [facility] LAB BLOOD ORDERABLES Final Result [facility] [address] [place] [address], [place] [phone] * DIAGNOSTIC MAMMOGRAPHY WITH CAD UNILATERAL (06/28/2024 2:38 PM EDT) Anatomical Region Laterality Modality Mammography 06/27/2024 1:05 PM EDT Narrative 06/28/2024 2:43 PM EDT This is a summary report. The complete report is available in the patient's medical record. If you cannot access the medical record, please contact the sending organization for a detailed fax or copy. LEFT DIGITAL 3D DIAGNOSTIC MAMMOGRAM HISTORY: Workup for left retroareolar breast mass. ??On physical examination, patient has a massive amount of black and blue discoloration of the left predominantly medial breast. TECHNIQUE: Full-field CC and MLO views CAD was used COMPARISON: Bilateral breast mammogram from 12/05/2023 FINDINGS: Left retroareolar breast mass is present and corresponds sonographically to at 3.6 cm fluid collection which likely represents probably benign hematoma. Density: B LEFT BREAST TARGETED ULTRASOUND EVALUATION HISTORY: Workup for retroareolar breast mass TECHNIQUE: Ultrasonographic examination is performed using a linear array transducer. ??Targeted left breast ultrasound was performed in the retroareolar region and portions of the medial breast to evaluate area of probable bruising. ??Real-time sonographic scanning was also performed by the radiologist. FINDINGS: At 9:00, there is a 3.6 x 2.5 x 1.0 cm heterogeneous fluid collection with surrounding marked echogenicity. ??No internal vascularity. ??This could represent probably benign hematoma. Impression: Area of palpable concern corresponds to a 9:00 3.6 cm probably benign hematoma. ??Due to multiple confounding symptomology, short-term follow-up in 2 months should be performed. BI-RADS Category 3 probably benign Recommendation: Targeted left breast ultrasound at 9:00 in 2 months. ??Repeat left breast mammogram in 2 months. ??If the area of concern has not decreased, biopsy should be considered [facility] [address] [place] [address] [id number] Procedure Note Lizzie Henriquez MD - 07/07/2024 This is a summary report. The complete report is available in thepatient's medical record. If you cannot access the medical record, pleasecontact the sending organization for a detailed fax or copy. LEFT DIGITAL 3D DIAGNOSTIC MAMMOGRAM HISTORY: Workup for left retroareolar breast mass. On physicalexamination, patient has a massive amount of black and blue discolorationof the left predominantly medial breast. TECHNIQUE: Full-field CC and MLO views CAD was used COMPARISON: Bilateral breast mammogram from 12/05/2023 FINDINGS: Left retroareolar breast mass is present and corresponds sonographicallyto at 3.6 cm fluid collection which likely represents probably benignhematoma. Density: B LEFT BREAST TARGETED ULTRASOUND EVALUATION HISTORY: Workup for retroareolar breast mass TECHNIQUE: Ultrasonographic examination is performed using a linear arraytransducer. Targeted left breast ultrasound was performed in theretroareolar region and portions of the medial breast to evaluate area ofprobable bruising. Real-time sonographic scanning was also performed bythe radiologist. FINDINGS: At 9:00, there is a 3.6 x 2.5 x 1.0 cm heterogeneous fluid collection withsurrounding marked echogenicity. No internal vascularity. This couldrepresent probably benign hematoma. Impression: Area of palpable concern corresponds to a 9:00 3.6 cm probably benignhematoma. Due to multiple confounding symptomology, short-term follow-upin 2 months should be performed. BI-RADS Category 3 probably benign Recommendation: Targeted left breast ultrasound at 9:00 in 2 months.Repeat left breast mammogram in 2 months. If the area of concern has notdecreased, biopsy should be considered [facility] [id number] [place], [place] [id number] [facility] BI PROCEDURES Final Result from Last 3 Months or Most Recently Relevant to Health Maintenance Insurance [employer] Care Teams Research And Development Tester Relationship Specialty Start Date End Date Brooke Osorio MD [address] [place] [id number] PCP - General Internal Medicine 07/10/24
--- OUTSIDE RECORDS SUMMARY | 2024-11-13 13:40 | XMS_ITS | Encounter Summary ---
Author Organization [facility] Address [address] [place] [address] Care Team Providers Care Purchasing Associate Name Role Phone Brooke Osorio MD Primary Care Prov ider Reason for Referral * Medications - Closed Specialty Diagnoses / Procedures Referred By Ronnie douglass Referred To Contact Diagnoses Chronic wound Joesph Perez PA [address] [place] [address] Phone: tel: fax: Referral ID Status Reason Start Date Expiration Date Visits Re quested Visits Authorized [id number] Closed 1 1 * Consultation (Routine) - Closed Specialty Diagnoses / Procedures Referred By Ronnie douglass Referred To Contact Internal Medicine Diagnoses Uncontrolled hypertension Joesph Perez PA [address] [place] [address] Phone: tel: fax: [facility] [address] Phone: tel: fax: Referral ID Status Reason Start Date Expiration Date V isits Requested Visits Authorized [id number] Closed Specialty Services Required 10/19/2024 10/19/2025 1 1 Reason for Visit * Reason Comments Hypertension Encounter Details Date Type Department Care Team (Late st Contact Info) Description 10/19/2024 11:15 AM EST Office Visit Adult Medicine [facility] [address] [place] [id number] Joesph Perez PA [address] [place] [address] Uncontrolled hypertension (Primary Dx); KATLYN (obstructive sleep apnea); Morbid obesity (CMS/HCC); Chronic wound; Class 3 severe obesity due to excess calories with serious comorbidity and body mass index (BMI) of 45.0 to 49.9 in adult (CMS/HCC); Cigarette smoker Social History Tobacco Use Types Packs/Day Years [...] on file documented as of this encounter Last Filed Vital Signs Vital Sign Reading Time Taken Comments Blood Pressure 152/74 10/19/2024 11:39 AM EST Pulse 80 10/19/2024 11:18 AM EST Temperature 36.8 ??C (98.3 ??F) 10/19/2024 11:[address] Respiratory Rate - - Oxygen Saturation - - Inhaled Oxygen Concentration - - Weight 117 kg (257 lb) 10/19/2024 11:18 AM EST Height 160 cm (5' 3 ) 10/19/2024 11:18 AM EST Body Mass Index 45.53 10/19/2024 11:18 AM EST documented in this encounter Ordered Prescriptions Prescription Sig Dispense Quantity Refills Last Filled Start Date End Date oxyCODONE-acetamin ophen (PERCOCET) 5-325 mg per tabletIndications: Chronic wound Take 1 tablet by mouth every 8 (eight) hours if needed for severe pain. Max Daily Amount: 3 tablets 20 tablet 10/19/2024 tirzepatide, weight loss, (ZEPBOUND) 5 mg/0.5 mL injectionIndicatio ns:KATLYN (obstructive sleep apnea),Morbid obesity (CMS/[facility]),Class 3 severe obesity due to excess calories with serious comorbidity and body mass index (BMI) of 45.0 to 49.9 in adult ([facility]) Inject 0.5 mL (5 mg total) under the skin every 7 (seven) days. 2 mL 10/19/2024 oxyCODONE-acetamin ophen (PERCOCET) 5-325 mg per tabletIndications: Chronic wound Take 1 tablet by mouth every 8 (eight) hours if needed for severe pain. Max Daily Amount: 3 tablets 20 tablet 10/19/2024 documented in this encounter Progress Notes * FANY Walsh - 10/19/2024 11:15 AM EST CHIEF COMPLAINT: Hypertension IDENTIFIER: July Styles is a 59 y.o. old female. HPI: Patient here for blood pressure follow-up. She has uncontrolled hypertension. States that at home her numbers are in the 180s. (Recently had her medications increase and states that she is adherent. Currently on valsartan 320 mg, verapamil 120 mg. Has a lot of pain. Has a chronic wound in the left buttock. Makes it difficult for her to sit comfortably and states pain especially when getting created. She finds tramadol completely ineffective and request something stronger. Has remote history of alcohol misuse and states should she had been onprescription Vicodin. States that she weaned herself off greater than 10 years ago She like to consider something for weight loss. She is interested in a GLP-1 or something similar. Has been obvious functional life and struggles with dieting ROS: GENERAL: Negative for malaise, significant weight loss and fever HEENT: No changes in hearing or vision. No nosebleeds or other nasal problems NECK: Negative for lumps, goiter, pain, and significant neck swelling RESPIRATORY: No cough, wheezing or shortness of breath CARDIOVASCULAR: Negative for chest pain, leg swelling and palpitations GI: Negative for abdominal discomfort, changes in bowel habits, blood in stool or black stools NEURO: No persistent headache, fainting, seizures, strokes, TIAs, weakness, numbness or tingling PAST MEDICAL HISTORY: Patient Active Problem List Diagnosis Date Noted Prediabetes 09/05/2024 Polysubstance dependence ([facility]) 06/22/2024 Nephrolithiasis 06/22/2024 Panic disorder 06/22/2024 IUD threads lost 04/21/2023 Overactive bladder 04/21/2023 AMNA (stress urinary incontinence, female) 04/21/2023 Peripheral polyneuropathy 08/26/2021 Vitamin D deficiency 08/26/2021 Morbid obesity (CMS/HCC) 10/29/2019 GERD (gastroesophageal reflux disease) 01/14/2018 KATLYN (obstructive sleep apnea) 01/14/2018 Hot flashes 01/10/2018 Alcohol abuse, in remission 10/04/2017 Cigarette smoker 10/04/2017 Cognitive deficit due to 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 10/04/2017 Depression with anxiety 10/04/2017 PTSD (post-traumatic stress disorder) 10/04/2017 Fibromyalgia 10/04/2017 Hypercholesteremia 10/04/2017 Hypertension 10/04/2017 Kidney stones 10/04/2017 Migraine headache 10/04/2017 Osteoarthritis, knee 10/04/2017 SOCIAL HISTORY: Social History Tobacco Use Smoking status: Every Day Current packs/day: 0.00 Types: Cigarettes Last attempt to quit: 10/06/2017 Years since quittin.0 Smokeless tobacco: Never Substance Use Topics Alcohol use: Not Currently FAMILY HISTORY: Family Status Relation Name Status Mother at age 59 brain cancer Father (Not Specified) No partnership data on file Family History Problem Relation Name Age of Onset Hypertension Mother Alcohol abuse Mother Other (Other: bypass) Father ACTIVE MEDICATIONS: Outpatient Medications Marked as Taking for the 10/19/24 encounter (Office Visit) with FANY Walsh Medication Sig Dispense Refill albuterol HFA (PROAIR HFA ; PROVENTIL HFA ; VENTOLIN HFA) 90 mcg/actuation inhaler INHALE 2 PUFFS 4TIMES A DAY NEEDED FOR WHEEZING/SHORTNESS OF BREATH ALPRAZolam (XANAX) 1 mg tablet TAKE 1 TABLET BY MOUTH 3 TIMES A DAY NEEDED FOR SLEEP azelastine (ASTELIN) 137 mcg (0.1 %) nasal spray 2 Sprays by Each Nare route 2 times daily. Use in each nostril as directed busPIRone (BUSPAR) 10 mg tablet TAKE 1/2 TABLET BY MOUTH TWICE A DAY FOR 1 WEEK THEN TAKE 1 TAB TWICE A DAY THEREAFTER cyclobenzaprine (FLEXERIL) 10 mg tablet Take 1 Tablet by mouth 3 times daily as needed for Muscle spasms. diclofenac (VOLTAREN) 1 % topical gel Apply 4 g topically 2 times daily. diphenoxylate-atropine (LOMOTIL) 2.5-0.025 mg per tablet TAKE 1 TABLET BY MOUTH IF NEEDED FOR DIARRHEA. 30 tablet 3 doxycycline hyclate (VIBRA-TABS) 100 mg tablet TAKE 1 TABLET BY MOUTH TWICE A DAY FOR 14 DAYS. LIMIT SUN EXPOSURE WHILE TAKING. fluticasone propion-salmeteroL (Advair Diskus) 500-50 mcg/dose diskus inhaler INHALE 1 PUFF BY MOUTH 2 TIMES A DAY srgbizlavsk-lbryodppiafd-vlgmflymde (TRELEGY ELLIPTA) 100-62.5-25 mcg inhaler Inhale by mouth. gabapentin (NEURONTIN) 800 mg tablet Take 1 Tablet by mouth 3 times daily. hydrocolloid dressing 4 X 5 bandage Apply to wound every 3 days 1 each 1 ipratropium (ATROVENT) 21 mcg (0.03 %) nasal spray INSTILL 2 SPRAYS INTO BOTH NARES DAILY AT BEDTIME FOR 30 DAYS naproxen (NAPROSYN) 500 mg tablet TAKE 1 TABLET BY MOUTH TWICE A DAY WITH MEALS 180 tablet 1 nicotine (NICODERM CQ) 21 mg/24 hr APPLY 1 PATCH TOPICALLY DAILY omeprazole (PriLOSEC) [address] capsule TAKE 1 CAPSULE BY MOUTH EVERY DAY 90 capsule 1 ondansetron ODT (ZOFRAN-ODT) 8 mg disintegrating tablet Take 1 tablet (8 mg total) by mouth if needed for nausea or vomiting. 20 tablet 0 oxyCODONE-acetaminophen (PERCOCET) 5-325 mg per tablet Take 1 tablet by mouth every 8 (eight) hoursif needed for severe pain. Max Daily Amount: 3 tablets 20 tablet 0 rosuvastatin (CRESTOR) 40 mg tablet TAKE 1 TABLET BY MOUTH EVERY DAY 90 tablet 1 SUMAtriptan (IMITREX) 6 mg/0.5 mL subcutaneous solution pen PLEASE SEE ATTACHED FOR DETAILED DIRECTIONS traZODone (DESYREL) 300 mg tablet Take 400 mg by mouth at bedtime. valsartan (DIOVAN) 320 mg tablet Take 1 tablet (320 mg total) by mouth 1 (one) time each day. 30 each 2 venlafaxine XR (EFFEXOR-XR) 150 mg 24 hr capsule Take 1 Cap by mouth 2 times daily for 360 days. verapamil ER (VERELAN) 120 mg 24 hr capsule Take 1 capsule (120 mg total) by mouth at bedtime. Take1 Capsule by mouth at bedtime. 90 capsule 1 [DISCONTINUED] traMADoL (ULTRAM) 50 mg tablet Take 1 tab prior to debreedment for wound- ONLY TO BEUSED PRIOR TO WOUND APPT 15 tablet 0 ALLERGIES: Bee sting kit, Hydrochlorothiazide, Other, Bupropion, and Varenicline PHYSICAL EXAM: Blood pressure (!) 152/74, pulse 80, temperature 36.8 ??C (98.3 ??F), temperature source Temporal, height 1.6 m (63 ), weight 117 kg (257 lb). Body mass index is 45.53 kg/m??. BMI is greater than 25.0 (above the normal range) - see Plan APPEARANCE: Alert, in mild distress. Laying on: Right side on exam table for the entire visit and occasional wincing in pain due to reported cramping of the rib cage. EYES: PERRLA, conjunctiva and sclera normal HEART: RRR with normal S1 and S2, no murmurs, no gallops, no JVD appreciated LUNG: clear to auscultation bilaterally EXTREMITIES: Extremities warm and well perfused without clubbing, cyanosis, or edema NEURO: Awake, alert and oriented x 3 LABS: Appointment on 09/04/2024 Component Date Value Ref Range Status Hemoglobin A1C 09/04/2024 6.1 <6.5 % Final Mean Bld Glu Estim. 09/04/2024 128 mg/dL Final Sodium 09/04/2024 135 133 - 145 mmol/L Final Potassium 09/04/2024 4.3 3.5 - 5.5 mmol/L Final Chloride 09/04/2024 107 96 - 110 mmol/L Final CO2 09/04/2024 24 21 - 32 mmol/L Final Anion Gap 09/04/2024 4 3 - 11 Final Glucose 09/04/2024 93 70 - 100 mg/dL Final BUN 09/04/2024 13 5 - 25 mg/dL Final Creatinine 09/04/2024 1.00 0.50 - 1.10 mg/dL Final eGFR 09/04/2024 66 >=60 mL/min/1.73m2 Final Calculation based on the Chronic Kidney Disease Epidemiology Collaboration (CKD- EPI) equation refitwithout adjustment for race. BUN/Creatinine Ratio 09/04/2024 13.0 Final Calcium 09/04/2024 8.6 8.5 - 10.5 mg/dL Final WBC 09/04/2024 7.2 4.8 - 10.8 K/mcL Final RBC 09/04/2024 4.40 3.80 - 4.80 M/mcL Final Hemoglobin 09/04/2024 12.7 11.5 - 16.0 g/dL Final Hematocrit 09/04/2024 38.8 35.0 - 47.0 % Final MCV 09/04/2024 88.6 79.0 - 98.0 FL Final MCH 09/04/2024 29.0 27.0 - 32.0 pcg Final MCHC 09/04/2024 32.7 32.0 - 37.0 g/dL Final RDW 09/04/2024 13.2 11.0 - 15.0 % Final Platelets 09/04/2024 223 130 - 400 K/mcL Final MPV 09/04/2024 10.3 7.0 - 11.0 FL Final NRBC 09/04/2024 0.0 <1.0 % Final NRBC Absolute 09/04/2024 0.00 <0.10 K/mcL Final Neutrophils Relative 09/04/2024 57.4 % Final Lymphocytes Relative 09/04/2024 32.7 % Final Monocytes Relative 09/04/2024 4.3 % Final Eosinophils Relative 09/04/2024 4.6 % Final Basophils Relative 09/04/2024 0.7 % Final Immature Granulocytes Relative 09/04/2024 0.3 % Final Neutrophils Absolute 09/04/2024 4.15 1.50 - 7.00 K/mcL Final Lymphocytes Absolute 09/04/2024 2.36 1.00 - 5.00 K/mcL Final Monocytes Absolute 09/04/2024 0.31 0.20 - 1.00 K/mcL Final Eosinophils Absolute 09/04/2024 0.33 0.00 - 0.50 K/mcL Final Basophils Absolute 09/04/2024 0.05 0.00 - 0.20 K/mcL Final Immature Granulocytes Absolute 09/04/2024 0.02 0.00 - 0.03 K/mcL Final Hospital Outpatient Visit on 08/31/2024 Component Date Value Ref Range Status Final Diagnosis 08/31/2024 Final Value:Colon, random biopsies: Unremarkable colonic mucosa No microscopic colitis identified Gross Description 08/31/2024 Final Value:A. Colon, random colon biopsies: Labeled random colon . Received in formalin are seven irregular nuñez mucosal tissue fragments, ranging from 0.2 cm to 0.6 cm in greatest dimension, which are wrapped in paper and submitted in toto inone cassette, seven pieces, multiple levels on one slide. LISSETTE Disclaimer 08/31/2024 Final Value:Unless otherwise specified, all tissue is 10% NB formalin fixed and paraffin embedded. Lab on 07/26/2024 Component Date Value Ref Range Status Cholesterol 07/26/2024 154 0 - 200 mg/dL Final Triglycerides 07/26/2024 96 0 - 150 mg/dL Final HDL 07/26/2024 61 >=40 mg/dL Final LDL Calculated 07/26/2024 74 0 - 100 mg/dL Final VLDL Cholesterol Robin 07/26/2024 19.2 mg/dL Final Non HDL Chol. (LDL+VLDL) 07/26/2024 93 <145 mg/dL Final Chol/HDL Ratio 07/26/2024 2.5 0.0 - 4.4 Final Sodium 07/26/2024 130 (L) 133 - 145 mmol/L Final Potassium 07/26/2024 4.5 3.5 - 5.5 mmol/L Final Chloride 07/26/2024 100 96 - 110 mmol/L Final CO2 07/26/2024 22 21 - 32 mmol/L Final Anion Gap 07/26/2024 8 3 - 11 Final Glucose 07/26/2024 139 (H) 70 - 100 mg/dL Final BUN 07/26/2024 13 5 - 25 mg/dL Final Creatinine 07/26/2024 0.96 0.50 - 1.10 mg/dL Final eGFR 07/26/2024 69 >=60 mL/min/1.73m2 Final Calculation based on the Chronic Kidney Disease Epidemiology Collaboration (CKD- EPI) equation refitwithout adjustment for race. BUN/Creatinine Ratio 07/26/2024 13.5 Final Calcium 07/26/2024 8.9 8.5 - 10.5 mg/dL Final AST (SGOT) 07/26/2024 19 10 - 42 unit/L Final ALT (SGPT) 07/26/2024 23 10 - 60 unit/L Final Alkaline Phosphatase 07/26/2024 135 (H) 42 - 121 unit/L Final Total Protein 07/26/2024 6.5 6.0 - 8.0 g/dL Final Albumin 07/26/2024 4.2 3.2 - 5.0 g/dL Final Total Bilirubin 07/26/2024 0.4 0.0 - 1.4 mg/dL Final Abstract on 06/14/2024 Component Date Value Ref Range Status Annual BMP Blood Test 04/11/2023 Abstracted Final LDL/HDL Ratio 07/18/2023 4 0 - 4 Final Triglycerides 07/18/2023 182 (A) 0 - 150 mg/dL Final Cholesterol 07/18/2023 182 0 - 200 mg/dL Final HDL 07/18/2023 45 >=40 mg/dL Final LDL Cholesterol 07/18/2023 101 (A) 0 - 100 mg/dL Final IMPRESSION: 1. Uncontrolled hypertension 2. KATLYN (obstructive sleep apnea) 3. Morbid obesity (CMS/HCC) 4. Chronic wound 5. Class 3 severe obesity due to excess calories with serious comorbidity and body mass index (BMI)of 45.0 to 49.9 in adult (CMS/HCC) 6. Cigarette smoker PLAN: Hypertension uncontrolled. He got a little bit better during the visit still considerably elevated.Patient does express pain. Unwilling to show me the area that I is currently bandaged up due to frequent wound debridement. She is morbidly obese and has a comorbidity of obstructive sleep apnea. Reports that she is adherent to CPAP usage. Will start tirzepatide discussed patient with Dr. Hernandez who agrees with plan. Greatly helpful. She understands to titrate up gradually and let us know how she is tolerating it. Nausea is very common side effect she is aware. She is tolerating a Trulicity order 3 weeks so we can send in the next dose and we will pasta vestibular the higher doses. Increase protein intake. Get exercise. Chronic wound. Continue with wound care management. Provided small number of oxycodone with acetaminophen. Discussed potential for addiction and sedation. Do not drive or combine with alcohol. PDMP reviewed and appropriate. She is cutting down on cigarettes and has patches at home per her report Discussed signs and symptoms warranting reevaluation. Risks, benefits, and side-effects of the medication were discussed and the patient expressed verbalunderstanding and consents to the plan. Followup in 3 months This note was created using dictation software and may contain syntax and grammar errors. Orders Placed This Encounter Procedures Ambulatory referral to Hypertension Clinic ADDITIONAL ORDERS: AMB REFERRAL TO [facility] FANY Walsh on 10/19/2024 at 12:51 PM EST documented in this encounter Plan of Treatment Upcoming Encounters Date Type Department Care Team (Late st Contact Info) Description 11/30/2024 10:00 AM EDT Medication Management Hypertension Clinic - [address] [address] Zina Renteria, PharmD [address] [place] [address] 12/24/2024 10:50 AM EDT Appointment Radiology Department - [address] [address] 12/24/2024 11:20 AM EDT Appointment Radiology Department - [address] [phone] 01/16/2025 10:30 AM EDT Office Visit Adult Medicine - [place] [address] [place] [address] Joesph Perez PA [address] [place] [address] Scheduled Referrals Name Type Priority Associated Diagnoses Orde r Schedule Ambulatory referral to Hypertension Clinic Outpatient Referral Routine Uncontrolled hypertension 1 Occurrences starting 10/19/2024 until 10/19/2025 documented as of this encounter Visit Diagnoses Diagnosis Uncontrolled hypertension- Primary KATLYN (obstructive sleep apnea) Obstructive sleep apnea (adult) (pediatric) Morbid obesity ([facility]/HCC) Morbid obesity Chronic wound Class 3 severe obesity due to excess calories with serious comorbidity and body mass index (BMI) of 45.0 to 49.9 in adult (CMS/[facility]) Cigarette smoker Tobacco use disorder documented in this encounter Discontinued Medications Medication Sig Discontinue Reason Start Date End Da te estradioL (ESTRACE) 0.01 % (0.1 mg/gram) vaginal cream Apply a pea-sized amount of cream with your finger into the vagina daily at bedtime for 2 weeks, then two times a week at night. Patient Discharge 04/27/2023 10/19/2024 traMADoL (ULTRAM) 50 mg tablet Take 1 tab prior to debreedment for wound- ONLY TO BE USED PRIOR TO WOUND APPT 09/20/2024 10/19/2024 oxyCODONE-acetaminophe n (PERCOCET) 5-325 mg per tabletIndications:Ict Developer jesse wound Take 1 tablet by mouth every 8 (eight) hours if needed for severe pain. Max Daily Amount: 3 tablets 10/19/2024 10/19/2024 documented as of this encounter Care Teams Purchasing Associate Relationship Specialty Start Date End Date Brooke Osorio MD [address] [place] [id number] PCP - General Internal Medicine 07/10/24 documented as of this encounter
--- OUTSIDE RECORDS SUMMARY | 2024-11-13 13:40 | XMS_ITS | Clinical Summary ---
Author Organization [facility] Address [address] [place] [address] Care Team Providers Care Aerial Tram Operator Name Role Phone Unavailable Primary Care Provider Unavailabl e Active Problems Problem Noted Date Diagnosed Date AMNA (stress urinary incontinence, female) 2022 Overview: Added automatically from request for surgery [id number] Overactive bladder 04/21/2023 Overview: Added automatically from request for surgery [id number] IUD threads lost 04/21/2023 Overview: Added automatically from request for surgery [id number] Social History Tobacco Use Types Packs/Day Years Used Date Smoking Tobacco: Never Assessed Sex and Gender Information Value Date Recorded Sex Assigned at Not on file Gender Identity Not on file Sexual Orientation Not on file Job Start Date Occupation Industry Not on file Not on file Not on file Plan of Treatment Health Maintenance Due Date Last Done Comments Hepatitis B Vaccines (1 of 3 - 3-dose series) 1967 Hepatitis C Screening 1967 COVID-19 Vaccine (#1) 1967 Depression Screening 1979 Preventative Health Evaluation 1985 DTap / Tdap / Td (1 - Tdap) 1986 Cervical Cancer Screening (P ap Smear) 1988 Colon Cancer Screening (Colonoscopy) 2012 Breast Cancer Screening (Mammogram) 2017 Shingrix-Zoster Vaccine (1 of 2) 2017 Influenza Vaccine (#1) 2024 Pneumococcal Vaccine Aged Out No long er eligible based on patient's age to complete this topic RSV Ped < 20 months Aged Out No longe r eligible based on patient's age to complete this topic
--- OUTSIDE RECORDS SUMMARY | 2024-11-13 13:40 | XMS_ITS | Encounter Summary ---
Author Organization [facility] Address [address] [place] [address] Care Team Providers Care Service Director Name Role Phone Brooke Osorio MD Primary Care Prov ider Encounter Details Date Type Department Care Team (Late Contact Info) Description 10/04/2024 Telephone Adult Medicine - [place] [address] [place] [phone] Brooke Osorio MD [address] [place] [address] Social History Tobacco Use Types Packs/Day Years [...] on file documented as of this encounter Plan of Treatment Upcoming Encounters Date Type Department Care Team (Late Contact Info) Description 11/30/2024 10:00 AM EDT Medication Management Hypertension Clinic - [facility] [address] [place] [address] Zina Renteria, PharmD [address] [place] [address] 12/24/2024 10:50 AM EDT Appointment Radiology Department - [address] [address] 12/24/2024 11:20 AM EDT Appointment Radiology Department - [address] [address] 01/16/2025 10:30 AM EDT Office Visit Adult Medicine - [place] [address] [place] [address] Joesph Perez PA [address] [place], [place] documented as of this encounter Visit Diagnoses Not on filedocumented in this encounter Care Teams Service Director Relationship Specialty Start Date End Date Brooke Osorio MD [address] [place], [place] PCP - General Internal Medicine 07/10/24 documented as of this encounter
== END 2024-11-13 12:22 | disposition home or self-care (01) ==
LOC: HO.HSMS 11:05
PROVIDERS: Visit Provider Physician Assistant Medical
DX: G43.E19 Chronic migraine with aura, intractable, without status migrainosus (principal); G47.33 Obstructive sleep apnea (adult) (pediatric); F33.0 Major depressive disorder, recurrent, mild; F41.9 Anxiety disorder, unspecified
CPT/HCPCS: 99214

== ENCOUNTER 2025-02-12 12:56 | Outpatient (AMB) | payer OTHER, SELFPAY ==
[2025-02-12 12:58] VITALS: BP 122/86; PULSE 78; O2SAT 98; BMI 43.8
--- NOTE | 2025-02-12 12:58 | A.OFFVIS_ITS ---
Vital Signs 02/12/25 12:58 Height 5 ft 3 in Weight 247 lb 6 oz BMI 43.8 BP 122/86 Blood Pressure Location Rt brachial Position Sitting Pulse 78 Pulse Source Pulse Oximeter Pulse Oximetry (%) 98 Oxygen Delivery Method Room Air Intake Visit Reasons: 3 mnts Intake Note: Patient presents follow up Migraine/KATLYN. Patient would like to talk about early onset of dementia(patient has noticed over 10yrs she will forget and use wrong words- states went on a day trip and patient forget week later but if mentions details she will remember. Forget certain daily tasks(turning on/off oven) Loss of time. Both set of grandmothers and paternal grandfather. Accompanied by: Self / Same As Patient Allergies bee venom protein (honey bee) Allergy (Unknown, Verified 02/12/25 13:02) Swelling chantix Allergy (Mild, Uncoded 07/10/24 10:58) behavior Wellbutrin Adverse Reaction (Unknown, Uncoded 07/10/24 10:57) Hives HPI Comments Details: 59 year old female f/u of with Tardive Dyskinesia like symptoms and Chronic Migraines. Her is here today and helps with history. 07/2023 MRI reviewed with patient states he notices she is forgetting events, day trips, if prompted she will recall, and is very confused with episodes of loss of time. She forgets to turn off the stove and mixes, or repeats words. Her STM and LTM has progressed and if tasks are not recorded on her phone she will forget them. FH of dementia paternal grandfather and both grandmothers in their 60s. She is a smoker, 1/2 pack a day with h/o KATLYN, followed by her County Demonstrator Primo Kay and Bharti for Compliance. She washes her mask, changes filters and fills the machine as needed. Her sleep has improved with cpap use, however still wakes up at 2am. She has Fibromyalgia takes 1000mg of Naproxen and 800mg TID Gabapentin, Brooke Hernandez, per PCP. She has MDD with anxiety, along with PTSD and sees her psychologist Dr. Powers at [facility] every 2-3 weeks via telethealth at [facility]. She has chronic migraines were controlled with Amigov 140mg once injected then ubrelvy 50mg po daily, and Imitrex tablets, manages her headaches and prevents them from developing into migraines. She still wakes up with migraines 4-5x a week and they can last for days. Imitrex injections are effective with onset of migraine, preventive is Aimovig.Migraines are 10/10 painful, debilitating, with phonophobia/ photophobia/ with floater and blurry vision smells has nausea, vomiting, vertigo as if she is spinning internally and balance difficulties. She is concerned about tremors, nueropathy, parasthesias in bilateral legs worse at night, feet and hands, EMG and NCS requested from [facility] History Cognitive deficit due to 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 Post traumatic stress disorder Alcohol abuse, in remission Kidney stone Osteoarthritis, knee Migraine headache Fibromyalgia Depression with anxiety Hypercholesteremia Benign hypertension Hot flashes Gastro-esophageal reflux disease without esophagitis Mild obstructive sleep apnea Morbid obesity Vitamin D deficiency Polyneuropathy, unspecified Surgical History History of lithotripsy History of eye surgery Family History Mother Hypertension Alcohol abuse Father Bypass graft mechanical complication Social History Patient Tobacco Use Status: Current everyday Tobacco user Cigarette Packs Per Day: 0.25 Physical Exam Vital Signs: Last Vital Signs Pulse 78 02/12/25 12:58 BP 122/86 02/12/25 12:58 Pulse Ox 98 02/12/25 12:58 Oxygen Delivery Method Room Air 02/12/25 12:58 BMI result Body Mass Index 43.8 Const General: cooperative, comfortable and no acute distress Nutritional Appearance: obese Orientation/consciousness: patient oriented x3 HEENT Head: Yes normal to inspection Ears: hearing grossly normal bilaterally Face and sinus: Yes normal facial exam and Yes face symmetric Mouth: tongue normal Eyes Pupils: Equal, round and reactive pupils present, Pupils normal by confrontation and Pupil accommodation reflex normal Neck Neck: Yes normal visual inspection, Yes full ROM and Yes supple Resp Effort & Inspection: normal respiratory effort and able to speak in complete sentences Neuro Other: ambulates with a cane General: patient oriented x3 Cranial nerves: Yes CN's II-XII intact bilaterally, Yes Facial sensation intact/muscles of mastication intact, Yes Equal, round and reactive pupils present, Yes Normal facial strength present, Yes Midline tongue present, Yes Ability to bilaterally rotate head present and Yes Ability to bilaterally elevate shoulders present (difficulty with shoulder shrug) Gait exam (Neuro): Antalgic gait present (gait is off balance) Motor exam (neuro): Abnormal motor strength present (unable to lift with quads and push with triceps my hands to resistance) and Tremors during motor activity present (Mild tremor of the hands L>R) Psych Appearance: well kempt Thought process: Normal thought process present Thought content: Normal thought content present Orientation What is the (year) (season) (date) (day) (month)?: year, season, date, day and month Where are we (state) (county) (town or city) (hospital) (floor)?: state, county, town or city, hospital/clinic and floor Registration Name of 3 unrelated objects clearly and slowly, then ask patient to repeat all 3 of them. (1st repeat determines score. Make sure they can repeat all three): object 1, object 2 and object 3 Attention & Calculation (CHOOSE ONE) Spell WORLD backwards (DLROW): 4 letters Recall Ask patient to repeat the 3 items from question #3.: object 1 and object 2 Language Show patient a wristwatch & ask what it is. Repeat for pencil.: watch and pencil Ask the patient to repeat the phrase 'No ifs, ands, or buts' after you.: incorrect Ask the patient to 'take a piece of paper with their right hand' 'fold paper in half' 'place paper on floor': take paper in right hand and fold paper in half Print the sentence 'CLOSE YOUR EYES' on a piece. If patient actually closes eyes then score.: followed written direction Give patient a blank piece of paper & ask to write a sentence. Score if it contains a noun & verb.: sentence contains subject and verb Score Score: 25 Results Reviewed Results Reviewed: MRI 2022 WNL Pulm visit ED 05/2024 Labs Assessment & Plan Assessment & Plan (1) Cognitive decline: Code(s): R41.89 - Other symptoms and signs involving cognitive functions and awareness Category: Medical (2) Migraine headache with aura: Code(s): G43.109 - Migraine with aura, not intractable, without status migrainosus Category: Medical Qualifiers: Intractability: intractable Status migrainosus presence: without status migrainosus Qualified Code(s): G43.119 - Migraine with aura, intractable, without status migrainosus (3) KATLYN on CPAP: Code(s): G47.33 - Obstructive sleep apnea (adult) (pediatric) Category: Medical (4) Recurrent mild major depressive disorder with anxiety: Code(s): F33.0 - Major depressive disorder, recurrent, mild; F41.9 - Anxiety disorder, unspecified Category: Medical (5) Chronic migraine with aura: Code(s): G43.E09 - Chronic migraine with aura, not intractable, without status migrainosus Category: Medical Qualifiers: Intractability: intractable Status migrainosus presence: without status migrainosus Qualified Code(s): G43.E19 - Chronic migraine with aura, intractable, without status migrainosus Plan Cognitive Decline MMSE , forgetful will send her for MRI to compare with the MRI completed in 07/2023 Migraine Protocol Continue Ubrelvy 50mg PO PRN Migraine with onset of migraine with aura, preventive for migraines. Continue with Aimovog Auto injector 140mg subcutaneously q monthly maintenance therapy for migraines. RF Sumatriptan Insomnia and Fragmented Sleep, may take melatonin 3-5mg PO at night. Sleep Compliance Report Request from Pulmonology Dr. Kay and or BHARTI MRI? labs? EMG/NCS? ahsan Orders: Orders MR head/brain wo con 02/12/25 R41.89 - Other symptoms and signs involving cognitive functions and awareness Medications: Refilled sumatriptan succinate may repeat once in one hour max is 12mg per day. 6 mg (0.5 mL) subcut ONCE 30 days PRN 2 mL 6RF migraine headache G43.109 - Migraine with aura, not intractable, without status migrainosus Patient Instructions: Sleep Hygiene provided: set a scheduled bedtime and wake time to help regulate the circadian rhythm and balance the release of pituitary hormones. Sleep in a dark room, temperatures below 68 degrees, and no devices n bed. Limit caffeinated products 6 hours prior to bed, and limit fluids 2-4 hours prior to bed. Gentle night yoga, diffusing essential oils, and playing soft music can be relaxing. Coding Level of Care Code Est Pt Level 4 (03155) Diagnoses Cognitive decline R41.89 Intractable migraine with aura without status migrainosus G43.119 Intractability: intractable Status migrainosus presence: without status migrainosus KATLYN on CPAP G47.33 Recurrent mild major depressive disorder with anxiety F33.0; F41.9 Intractable chronic migraine with aura and without status migrainosus G43.E19 Intractability: intractable Status migrainosus presence: without status migrainosus Time Spent (min) 30
--- OUTSIDE RECORDS SUMMARY | 2025-02-12 15:11 | XMS_ITS | Clinical Summary ---
Author Organization [facility] Address [address] [place] [address] Care Team Providers Care Fax Machine Operator Name Role Phone Unavailable Primary Care Provider Unavailabl e Active Problems Problem Noted Date Diagnosed Date AMNA (stress urinary incontinence, female) 2022 Overview: Added automatically from request for surgery [id number] Overactive bladder 04/21/2023 Overview: Added automatically from request for surgery [id number] IUD threads lost 04/21/2023 Overview: Added automatically from request for surgery [id number] Social History Tobacco Use Types Packs/Day Years [...] Vaccine (1 of 2) 2017 Influenza Vaccine (Season Ended) 2025 Pneumococcal Vaccine Aged Out No long er eligible based on patient's age to complete this topic RSV Ped < 20 months Aged Out No longe r eligible based on patient's age to complete this topic
== END 2025-02-12 14:12 | disposition home or self-care (01) ==
LOC: HO.HSMS 12:57
PROVIDERS: Visit Provider Physician Assistant Medical
DX: R41.89 Other symptoms and signs involving cognitive functions and awareness (principal); G43.119 Migraine with aura, intractable, without status migrainosus; G47.33 Obstructive sleep apnea (adult) (pediatric); F33.0 Major depressive disorder, recurrent, mild; F41.9 Anxiety disorder, unspecified; G43.E19 Chronic migraine with aura, intractable, without status migrainosus
CPT/HCPCS: 99214

== ENCOUNTER → 2025-02-12 12:56 | Outpatient (BNVA) | payer OTHER, SELFPAY | PROVIDERS: Visit Provider Physician Assistant Medical ==

== ENCOUNTER 2025-03-10 11:36 | Outpatient (REF) | payer OTHER, SELFPAY ==
--- NOTE | ~2025-03-10 | MR_ITS ---
CLINICAL HISTORY: R41.89 - Other symptoms and signs involving cognitive functions and awar... --- Additional Notes or Special Instructions: bladder control implants MR Brain without gadolinium Comparison: None provided Findings: No restricted diffusion. No intra-axial mass or hemorrhage. Mild partially empty sella. Mild asymmetric right mesial temporal volume loss No midline shift. No hydrocephalus. Vascular flow voids are intact. Orbital contents are unremarkable. Minimal to mild mucosal thickening in the left frontal and both ethmoid sinuses. No focal bone lesion. IMPRESSION: Mild asymmetric right mesial temporal lobe volume loss. Mild partially empty sella. Otherwise unremarkable brain. This document has been electronically signed by: Saskia Morocho MD on 03/11/2025 11:16:37
--- OUTSIDE RECORDS SUMMARY | 2025-03-10 11:39 | XMS_ITS | Clinical Summary ---
Author Organization [facility] Address [address] [place] [address] Care Team Providers Care Hunting Sales Leader Name Role Phone Unavailable Primary Care Provider Unavailabl e Active Problems Problem Noted Date Diagnosed Date AMNA (stress urinary incontinence, female) 2022 Overview: Added automatically from request for surgery [id number] Overactive bladder 04/21/2023 Overview: Added automatically from request for surgery [id number] IUD threads lost 04/21/2023 Overview: Added automatically from request for surgery [id number] Social History Tobacco Use Types Packs/Day Years [...] (1 of 2) 2017 Influenza Vaccine (#1) 2025 Pneumococcal Vaccine Aged Out No long er eligible based on patient's age to complete this topic RSV Ped < 20 months Aged Out No longe r eligible based on patient's age to complete this topic
--- OUTSIDE RECORDS SUMMARY | 2025-03-10 11:39 | XMS_ITS | Clinical Summary ---
Author Organization [facility] [address] [facility] Address [address] [place] [address] Phone Care Team Providers Care Freight Adjuster Name Role Phone Brooke Osorio MD Primary [...] MOUTH 2 TIMES A DAY 022 Active ipratropium (ATROVENT) 21 mcg (0.03 %) [...] Use in each nostril as directed Active ondansetron ODT (ZOFRAN-ODT) 8 mg disintegrating tablet Take 1 tablet (8 mg total) by mouth if needed for nausea or vomiting. 20 tablet Active omeprazole (PriLOSEC) [address] capsule TAKE 1 CAPSULE BY MOUTH EVERY DAY 90 capsule 1 Active fluticasone-umecl idinium-vilantero l (TRELEGY ELLIPTA) [...] wound every 3 days 1 each 1 Active diphenoxylate-atr opine (LOMOTIL) 2.5-0.025 mg per tablet TAKE 1 TABLET BY MOUTH IF NEEDED FOR DIARRHEA. 30 tablet 3 Active tirzepatide, weight loss, (ZEPBOUND) 5 mg/0.5 mL injectionIndicati ons:KATLYN (obstructive sleep apnea),Morbid obesity (CMS/HCC V24, CMS/HCC V28),Class 3 severe obesity due to excess calories with serious comorbidity and body mass index (BMI) of 45.0 to 49.9 in adult (CMS/HCC V24, CMS/[facility] V28) Inject 0.5 mL (5 mg total) under the skin every 7 (seven) days. 2 mL 025 Active Additional Information Patient not taking.Reported on 01/16/2025 oxyCODONE-acetami nophen (PERCOCET) 5-325 mg per tabletIndications :Chronic wound Take 1 tablet by mouth every 8 (eight) hours if needed for severe pain. Max Daily Amount: 3 tablets 20 tablet 025 Active Additional Information Patient not taking.Reported on 01/16/2025 valsartan (DIOVAN) 320 mg tablet TAKE 1 TABLET BY MOUTH 1 TIME EACH DAY. 90 tablet 1 025 Active cyclobenzaprine (FLEXERIL) 10 mg tablet Take 1 tablet (10 mg total) by mouth 3 (three) times a day if needed for muscle spasms. 30 tablet 5 025 Active gabapentin (NEURONTIN) 800 mg tablet Take 1 tablet (800 mg total) by mouth 3 (three) times a day. Take 1 Tablet by mouth 3 times daily. 270 tablet 1 Active Aimovig Autoinjector 140 mg/mL injection Inject 1 mL (140 mg total) under the skin. Active indapamide (LOZOL) 1.25 mg tablet Take 1 tablet (1.25 mg total) by mouth 1 (one) time each day in the morning. 30 each 2 025 2025 Active rosuvastatin (CRESTOR) 40 mg tablet TAKE 1 TABLET BY MOUTH EVERY DAY 90 tablet 1 025 Active verapamil ER (VERELAN) 120 mg 24 hr capsule TAKE 1 CAPSULE (120 MG TOTAL) BY MOUTH AT BEDTIME. 90 capsule 1 025 Active naproxen (NAPROSYN) 500 mg tablet TAKE 1 TABLET BY MOUTH TWICE A DAY WITH FOOD 180 tablet 1 025 Active naproxen (NAPROSYN) 500 mg tablet TAKE 1 TABLET BY MOUTH TWICE A DAY WITH MEALS 180 tablet 1 024 2024 Discontinued verapamil ER (VERELAN) 120 mg 24 hr capsule Take 1 capsule (120 mg total) by mouth at bedtime. Take 1 Capsule by mouth at bedtime. 90 capsule 1 024 2024 Discontinued rosuvastatin (CRESTOR) 40 mg tablet TAKE 1 TABLET BY MOUTH EVERY DAY 90 tablet 1 024 2024 Discontinued Active Problems Problem Noted Date Diagnosed Date Memory loss 01/16/2025 Prediabetes 09/05/2024 Polysubstance dependence ([facility] V24, [facility] V 28) 06/22/2024 Nephrolithiasis 06/22/2024 Panic disorder 06/22/2024 IUD threads lost 04/21/2023 Overview (06/14/2024): Added automatically from request for surgery [id number] Overactive bladder 04/21/2023 Overview (06/14/2024): Added automatically from request for surgery [id number] AMNA (stress urinary incontinence, female) 2022 Overview (06/14/2024): Added automatically from request for surgery [id number] Peripheral polyneuropathy 08/26/2021 Vitamin D deficiency 08/26/2021 Morbid obesity ([facility] V24, [facility] V28) 2019 GERD (gastroesophageal reflux disease) 8 KATLYN (obstructive sleep apnea) 01/14/2018 Overview (06/14/2024): No diagnostic study on file.? 08/06/2021 [facility] Polysomnogram PAP treatment study. [...] 10/04/2017 Overview (06/14/2024): Psychologist, Dr Gwen Torres, [facility] PTSD (post-traumatic stress disorder) 10/04/2017 Fibromyalgia 10/04/2017 Overview (06/14/2024): historic Pt tried and failed Gabapentin 300mg prescribed by previous PCP Hypercholesteremia 10/04/2017 Hypertension 10/04/2017 Kidney stones 10/04/2017 Migraine headache 10/04/2017 Overview (06/14/2024): Sees Dr Valverde Osteoarthritis, knee 10/04/2017 Encounters Date Type Department Care Team Description 01/16/2025 10:30 AM EDT Office Visit [address] [phone] Joesph Perez PA Hypertension, unspecified type (Primary Dx); KATLYN (obstructive sleep apnea); Memory loss; Prediabetes; Cardiac murmur from Last 3 Months Immunizations Name Administration Dates Next Due Influenza Quadrivalent, 0.5m l, preservative free (Fluarix; FluLaval; Fluzone) ages 6mo and older (Afluria) 3yo and older 05/11/2018 Influenza trivalent, with pr eservative (Fluzone; Afluria) [...] Peripheral neuropathy Vitamin D deficiency Morbid obesity (CMS/HCC V24, CMS/HCC V28) Alcohol abuse IN REMISSION Depression Anxiety PTSD [...] Sign Reading Time Taken Comments Blood Pressure 140/92 01/16/2025 10:37 AM EDT Pulse 75 01/16/2025 10:23 AM EDT Temperature 36.8 C (98.2 F) 01/16/2025 10:23 AM EDT Respiratory Rate 16 08/31/2024 1:53 PM EST Oxygen Saturation 97% 08/31/2024 1:53 PM EST Inhaled Oxygen Concentration - - Weight 117 kg (257 lb) 01/16/2025 10:23 AM EDT Height 160 cm (5' 3 ) 01/16/2025 10:23 AM EDT Body Mass Index 45.53 01/16/2025 10:23 AM EDT Plan of Treatment Upcoming Encounters Date Type Department Care Team (Late st Contact Info) Description 04/10/2025 11:15 AM EDT Office Visit Adult Medicine [facility] [address] [place] [address] Joesph Perez PA [address] [place] [address] 04/19/2025 7:00 AM EDT Ancillary Procedure [facility] [address] [place] [address] Health Maintenance Due Date Last Done Comments [...] season) 2024 01/01/2021, 12/04/2020 Influenza Vaccine (#1) 2025 8, 05/11/2018, 11/18/2011 Hypertension/CHF/CAD Annual BMP Blood Test 09/04/2025 [...] age to complete this topic Meningococcal B Vaccine Aged Out No l onger eligible based on patient's age to complete this topic RSV Immunization Patients Under 20 months Aged Out No longer eligible b ased on patient's age to complete this topic Varicella Vaccines Aged Out No longer eligible based on patient's age to complete this topic Procedures Procedure Name Priority Date/Time Associated Diagnosis Comments ECG 12-LEAD Routine 01/21/2025 11:50 AM EDT BASIC METABOLIC PANEL Routine 09/04/2024 2:43 PM EST Hyponatremia COLONOSCOPY Routine 08/31/2024 1:32 PM EST Colon cancer screening LIPID PANEL WITH REFLEX TO DIRECT LDL Routine 07/26/2024 9:59 AM EST Routine general medical examination at a health care facility DIAGNOSTIC MAMMOGRAPHY WITH CAD UNILATERAL Routine 06/28/2024 2:38 PM EDT Unspecified lump in unspecified breast from Last 3 Months or Most Recently Relevant to Health Maintenance Results * ECG 12 lead (01/21/2025 11:50 AM EDT) us Historical Provider ECG ORDERABLES Final Res ult * Basic metabolic panel (09/04/2024 2:43 PM [...] 73m2 LAB CHEMISTRY METHOD 09/04/2024 4:[address] [facility] Comment:Calculation based on the Chronic Kidney Disease Epidemiology Collaboration (CKD-EPI) equation refit without adjustment for race. BUN/Creatinine Ratio 13.0 LAB CHEMISTRY METHOD 09/04/2024 4:[address] [facility] Calcium 8.6 8.5 - 10.5 mg/dL LAB CHEMISTRY METHOD 09/04/2024 4:[address] [facility] Blood Venous blood specimen / Unknown Venipuncture / Unknown 09/04/2024 2:43 PM EST 09/04/2024 2:43 PM EST Sis [facility] LAB BLOOD ORDERABLES Final Result [facility] [address] [place] [address], * COLONOSCOPY Anesthesia - MAC; [facility] ENDOSCOPY (08/31/2024 1:32 PM EST) Anatomical Region Laterality Modality Endoscopy 08/31/2024 1:08 PM EST Impressions 08/31/2024 1:33 PM EST - Diverticulosis in the left colon. - The examination was otherwise normal on direct and retroflexion views. - Biopsies were taken with a cold forceps from the entire colon for evaluation of microscopic colitis. Recommendation: - Patient has a contact number available for emergencies. The signs and symptoms of potential delayed complications were discussed with the patient. Return to normal activities tomorrow. Written discharge instructions were provided to the patient. - Resume previous diet. - Continue present medications. - Await pathology results. - Repeat colonoscopy in 10 years for screening purposes. Narrative 08/31/2024 1:33 PM EST [facility] Patient Name: July Styles Procedure [...] scope was passed under direct vision. Throughout the procedure, the patient's blood pressure, pulse, and oxygen saturations were monitored continuously. The Olympus Colonoscope was introduced through the anus and advanced to the cecum, identified by appendiceal orifice and ileocecal valve. The colonoscopy was performed without difficulty. The patient tolerated the procedure well. The quality of the bowel preparation was adequate. Findings: A few small and large-mouthed diverticula were found in the left colon. The exam was otherwise without abnormality on direct and retroflexion views. Biopsies for histology were taken with a cold forceps from the entire colon for evaluation of microscopic colitis. She relates a distal history of colitis with Dr. Tapia. I did not see colitis, but did take biopsies. MD Alvaro Cabrera MD 08/31/2024 1:33:13 PM This report has been signed electronically.Alvaro Lebron MD Number of Addenda: 0 Note Initiated On: 08/31/2024 1:08 PM Scope In: Scope Out: Endoscopy Department at [facility] - [address] [place] [id number] Procedure Note Alvaro Lebron MD - 08/31/2024 [facility] Patient Name: July Styles Procedure Date: 08/31/2024 1:08 PM Date of : 1965 Age: 59 Gender: Female Note Status: Finalized Attending MD: Avlaro Lebron MD, Procedure Date No Time: 08/31/2024 [...] Scope In: Scope Out: Endoscopy Department at [facility] - [address] [place] [id number] IMPRESSION: - Diverticulosis in the left colon. [...] MD GI~PROCEDURE ORDERABLES Final R esult * Lipid panel with reflex to direct LDL (07/26/2024 9:59 AM EST) Cholesterol 154 0 - 200 mg/dL LAB CHEMISTRY METHOD 07/26/2024 12:[address] [facility] Triglycerides 96 0 - 150 mg/dL LAB CHEMISTRY METHOD 07/26/2024 12:[address] [facility] HDL 61 >=40 mg/dL LAB CHEMISTRY METHOD 07/26/2024 12:[address] [facility] LDL Calculated 74 0 - 100 mg/dL LAB CHEMISTRY METHOD 07/26/2024 12:[address] [facility] VLDL Cholesterol Robin 19.2 mg/dL [...] Sis [facility] LAB BLOOD ORDERABLES Final Result [facility] [address] [place] [address], [place] [phone] * DIAGNOSTIC MAMMOGRAPHY WITH CAD UNILATERAL (06/28/2024 [...] Workup for left retroareolar breast mass. On physical examination, patient has a massive amount [...] is performed using a linear array transducer. Targeted left breast ultrasound was performed in the retroareolar region and portions of the medial breast to evaluate area of probable bruising. Real-time sonographic scanning was also performed by the radiologist. FINDINGS: At 9:00, there is a 3.6 x 2.5 x 1.0 cm heterogeneous fluid collection with surrounding marked echogenicity. No internal vascularity. This could represent probably benign hematoma. Impression: Area of palpable concern corresponds to a 9:00 3.6 cm probably benign hematoma. Due to multiple confounding symptomology, short-term follow-up in 2 months should be performed. BI-RADS Category 3 probably benign Recommendation: Targeted left breast ultrasound at 9:00 in 2 months. Repeat left breast mammogram in 2 months. If the area of concern has not decreased, biopsy should be considered [facility] [address] [address] Procedure Note Lizzie Henriquez MD - 07/07/2024 [...] concern has notdecreased, biopsy should be considered [facility] [address] [place], [place] [phone] Joesph SO[facility]ES IMG BI PROCEDURES Final Result from Last 3 Months or Most Recently Relevant to Health Maintenance Insurance [employer] Care Teams Freight Adjuster Relationship Specialty Start Date End Date Brooke Osorio MD [address] [place] [id number] PCP - General Internal Medicine 07/10/24
--- OUTSIDE RECORDS SUMMARY | 2025-03-10 11:39 | XMS_ITS | Patient Health Record ---
Author Organization [facility] Address [address] [facility] [address] [place] [address] Care Team Providers Care Oracle Security Consultant Name Role Phone Gunjan TOBIN, Cici Primary Care Provid er Unavailable Dayanara Fields Unavailable [phone] Sis Yo Unavailable Unavailab Eduardo Yang Unavailable [phone] Allergies Allergen (clinical drug ingredient) Drug/Non Drug Allergy documented on EMR Reaction Allergy Type Onset Date Status varenicline Chantix Unknown Drug Allergy Activ e bupropion Bupropion Unknown Drug Allergy Active hydrochlorothiazide Hydrochlorothiazide Unknown Drug Aller gy Active varenicline Varenicline Unknown Drug Allergy Act jeremiah Reason For Referral No Information Medications Medication SIG (Take, Route, Frequency, Duration) Notes Start Date End Date Status Azelastine HCl 137 MCG/SPRAY 2 puffs (1 spray in each nostril) Nasally Twice a day; Duration: 30 day(s) 09/07/2024 Active Valsartan 320 MG 1 tablet Orally Once a day; Duration: 30 day(s) 09/07/2024 Active ALPRAZolam 1 MG 1 tablet Orally Twic e a day 09/07/2024 Active traZODone HCl 300 MG 1 tablet at bedtime Orally Once a day; Duration: 30 day(s) 09/07/2024 Active Lomotil 2.5-0.025 MG 1 tablet as needed Orally Four times a day 09/07/2024 Active busPIRone HCl 10 MG 1 tablet Orally Twic e a day 09/07/2024 Active Venlafaxine HCl ER 150 MG 1 capsule with food Orally Once a day; Duration: 30 day(s) 09/07/2024 Active Advair Diskus 500-50 MCG/ACT 1 puff Inhalation Twice a day 09/07/2024 Active Verapamil HCl ER 120 MG 1 tablet Orally Once a day; Duration: 30 day(s) 09/07/2024 Active Gabapentin 800 MG 1 tablet Orally Once a day; Duration: 30 day(s) 09/07/2024 Active Trelegy Ellipta 100-62.5-25 MCG/ACT 1 puff Inhalation Once a day 09/07/2024 Active Omeprazole 40 MG 1 capsule 1/2 to 1 h our before morning meal Orally Once a day; Duration: 30 day(s) 09/07/2024 Active Nicoderm CQ 21 MG/24HR 1 patch to skin Transdermal Once a day 09/07/2024 Active Albuterol Sulfate 108 (90 Base) MCG/ACT 1 puff as needed Inhalation every 4 hrs 09/07/2024 Active SUMAtriptan Succinate 6 MG/0.5ML 0.5 mL may repeat dose after 1 hour as needed Subcutaneous Once a day; Duration: 30 day(s) 09/07/2024 Active Crestor 40 MG 1 tablet Orally Once a day; Duration: 30 day(s) 09/07/2024 Active Problems Problem Type SNOMED Code ICD Code Onset Dates Problem Status W/U Status Risk Notes Problem Psychoactive substance dependence (7796182) Other psychoactive substance dependence, uncomplicated (F19.20) Active confirmed Problem Essential hypertension (62755835) Essential (primary) hypertension (I10) Active confirmed Problem Pressure injury of right buttock stage III (disorder) (72484180068452) Pressure ulcer of right buttock, stage 3 (L89.313) Active confirmed Problem Chronic ulcer of buttock (677794122) Non-pressure chronic ulcer of buttock with fat layer exposed (L98.412) Active confirmed Problem Fibromyalgia (913698999) Fibromyalgia (M79.7) Active confirmed Problem Cognitive communication disorder (573921589) Cognitive communication deficit (R41.841) Active confirmed Problem Posttraumatic stress disorder (99775562) PTSD (post-traumatic stress disorder) (F43.10) Active confirmed Problem Obstructive sleep apnea (05662487) Obstructive sleep apnea (G47.33) Active confirmed Problem Inflammatory and toxic neuropathy (791399831) Peripheral polyneuropathy (G62.9) Active confirmed Problem Hypercholesterolemia (94309875) Hypercholesterolemia (E78.00) Active confirmed Problem Gastroesophageal reflux disease (886594938) GERD (gastroesophageal reflux disease) (K21.9) Active confirmed Problem Alcohol abuse (02257682) Alcohol abuse (F10.10) Active confirmed Problem Osteoarthritis (444483485) Osteoarthritis (M19.90) Active confirmed Problem Kidney stone (98094729) Kidney stones (N20.0) Active confirmed Problem Migraine (65049863) Migraine (G43.909) Active c onfirmed Vital Signs Heart Rate 104 /min 11/08/2024 Temperature 97.1 degrees Fahrenheit 11/08/2024 Respiratory Rate 18 /min 11/08/2024 Height-cm 160.02 cm 11/08/2024 Oximetry 98 % 11/08/2024 Blood pressure diastolic 90 mm Hg 11/08/2024 Weight-kg 117.94 kg 11/08/2024 Height 63 in 11/08/2024 Blood pressure systolic 162 mm Hg 11/08/2024 Weight 260 lbs 11/08/2024 BMI 46.05 kg/m2 11/08/2024 Encounters Encounter Location Date Provider Diagnosis [facility] [address] [address] 09/11/2024 Jooyun Fields Pressure ulcer of ri ght buttock, stage 3 L89.313 ; Essential (primary) hypertension I10 and Peripheral polyneuropathy G62.9 [place] [address] [address] 09/18/2024 Jooyun Fields Pressure ulcer of ri ght buttock, stage 3 L89.313 ; Essential (primary) hypertension I10 and Peripheral polyneuropathy G62.9 [facility] [address] [address] 09/25/2024 Jooyun Fields Pressure ulcer of ri ght buttock, stage 3 L89.313 ; Essential (primary) hypertension I10 and Peripheral polyneuropathy G62.9 [facility] [address] [address] 10/02/2024 Jooyun Fields Pressure ulcer of ri ght buttock, stage 3 L89.313 ; Essential (primary) hypertension I10 and Peripheral polyneuropathy G62.9 [facility] [address] [address] 10/16/2024 Dayanara Fields Pressure ulcer of ri ght buttock, stage 3 L89.313 ; Essential (primary) hypertension I10 and Peripheral polyneuropathy G62.9 [facility] [address] [address] 10/25/2024 Eduardo Gill Pressure ulcer of ri ght buttock, stage 3 L89.313 ; Essential (primary) hypertension I10 and Peripheral polyneuropathy G62.9 [facility] [address] [address] 11/01/2024 Eduardo Gill Pressure ulcer of ri ght buttock, stage 3 L89.313 ; Essential (primary) hypertension I10 and Peripheral polyneuropathy G62.9 [facility] [address] [address] 11/08/2024 Eduardo Gill Pressure ulcer of ri ght buttock, stage 3 L89.313 ; Essential (primary) hypertension I10 and Peripheral polyneuropathy G62.9 [facility] [address] [address] 09/07/2024 [facility] [address] [address] 09/11/2024 Dayanara Fields [facility] [address] [address] 10/30/2024 Eduardo Gill Assessments Encounter Date Diagnosis (ICD Code) Assessment Notes Treatment Notes Treatment Clinical Notes Section Notes 09/11/2024 Pressure ulcer of right buttock, stage 3 (ICD-10 - L89.313) On assessment today, July is noted to be afebrile and other VS were within normal limits. The patient reports burning pain related to the wound area. We removed dressings, and I examined the wound site. The full thickness wound covered with thick escahr and slough. The surround wound area has erythema, and the skin is firm and warm. There was large amount of sanguineous drainage noted. There was no foul odor noted. After examination, I discussed the indication of debridement and she was agreeable. I then performed debridement to remove devitalized tissues as outlined. She tolerated procedure well. There was still has thick eschar attached on the wound bed. The wound site were then cleansed with saline and thereafter, Silvadene applied onto the wound site and zinc to den wound areas. The site were then covered with a dry dressing. And I obtained the wound culture today, and will start antibiotic if the wound culture is indiccated. Patient was educated to protect wound site continue performing above dressing changes regularly with Dakins's soultion and Silvadene. Advised patient to offload the pressure and ambulate more and try not to sit too long with the right side. S/S of infection reviewed and when to go to ED. Patient will have FU in one week. Patient verbalized understand and questions or concerns addressed at this time. I, MIKO Johnson, examined, evaluated , and treated the patient. Dr. Diana Messina was available for any questions or concerns that I may have had.: A total of 40 minutes was spent on this visit (face to face and non face to face) documenting HPI and performing physical exam, reviewing previous notes and testing, reviewing and adjusting treatment plan, counseling the patient on treatment choices, disease process, expected outcomes, and documenting the findings in the note. 09/18/2024 Pressure ulcer of right buttock, stage 3 (ICD-10 - L89.313) On assessment today, July is noted to be afebrile and BP was elevated due to pain related to the wound and anxiety. The patient reports still has burning pain related to the wound area. We removed dressings, and I examined the wound site. The thick escahr and slough on the wound bed has slightly loosened. The surround wound area has erythema, but no purulent drainage or increased warmth. There was large amount of sanguineous drainage noted. There was no foul odor. After examination, I discussed the indication of debridement and she was agreeable. I then performed debridement to remove devitalized tissues as outlined. She tolerated procedure well. I was able to remove the thick eschar attached on the wound bed. The wound site were then cleansed with saline and thereafter, Aquacel applied onto the wound site and zinc to den wound areas. The site were then covered with a dry dressing. July is here for follow up of right buttock wound, The thick eschar was able to remove from the wound bed today. Planning to change the dressing to HFB but it is backorder now. Therefor we will try Aquacel. Patient was educated to protect wound site continue performing above dressing changes regularly with Aquacel. Advised patient to offload the pressure and ambulate more and try not to sit too long with the right side. S/S of infection reviewed and when to go to ED. Patient will have FU in one week and re-evaluate the wound and treatment next week. Patient verbalized understand and questions or concerns addressed at this time. I, CHRISTIN JohnsonP-, examined, evaluated , and treated the patient. Dr. Diana Messina was available for any questions or concerns that I may have had.: 09/25/2024 Pressure ulcer of right buttock, stage 3 (ICD-10 - L89.313) On assessment today, July is noted to be afebrile and BP was elevated due to pain related to the wound and anxiety. The patient reports still has burning pain related to the wound area. We removed dressings, and I examined the wound site. The wound is improving, measuring smaller and the wound bed has mix of small amount of slough and hypergranulation. The surround wound area has mild erythema, but no purulent drainage or increased warmth. There was no foul odor. After examination, I discussed the indication of debridement and she was agreeable. I then performed debridement to remove devitalized tissues as outlined. She tolerated procedure well. The wound site were then cleansed with saline and thereafter, Aquacel applied onto the wound site and zinc to den wound areas. The site were then covered with a dry dressing. I used silvernitrate to the hypergranulation area. July is here for follow up of right buttock wound, The wound is improving with aquacel. Consider to change to HFB due to the drainage amount but it is backorder now. Therefor we will continue to treat the wound with Aquacel. Patient was educated to protect wound site continue performing above dressing changes regularly with Aquacel. Advised patient to offload the pressure and ambulate more and try not to sit too long with the right side. S/S of infection reviewed and when to go to ED. Patient will have FU in one week and re-evaluate the wound and treatment next week. Patient verbalized understand and questions or concerns addressed at this time. Dayanara Maravilla FNP-BC, examined, evaluated , and treated the patient. Dr. Diana Messina was available for any questions or concerns that I may have had. 10/02/2024 Pressure ulcer of right buttock, stage 3 (ICD-10 - L89.313) On assessment today, July is noted to be afebrile and BP was elevated due to pain related to the wound and anxiety. The patient also reports that her BP runs high and her PCP trying adjust her BP medication and will have follow up in 3 weeks. The burning pain related to the wound area has decreased. We removed dressings, and I examined the wound site. The wound is improving, measuring smaller and the wound bed has mix of small amount of slough and hypergranulation. The surround wound area has mild erythema, but no purulent drainage or increased warmth. There was no foul odor. After examination, I discussed the indication of debridement and she was agreeable. I then performed debridement to remove devitalized tissues as outlined. She tolerated procedure well. The wound site were then cleansed with saline and thereafter, Aquacel applied onto the wound site and zinc to den wound areas. The site were then covered with a dry dressing. I used silvernitrate to the hypergranulation area. July is here for follow up of right buttock wound, The wound is improving with aquacel. Therefor we will continue to treat the wound with Aquacel. Patient was educated to protect wound site continue performing above dressing changes regularly with Aquacel. Advised patient to offload the pressure and ambulate more and try not to sit too long with the right side. S/S of infection reviewed and when to go to ED. Patient will have FU in one week and re-evaluate the wound and treatment next week. Patient verbalized understand and questions or concerns addressed at this time. Dayanara Maravilla FNP-BC, examined, evaluated , and treated the patient. Dr. Diana Messina was available for any questions or concerns that I may have had. 10/16/2024 Pressure ulcer of right buttock, stage 3 (ICD-10 - L89.313) On assessment today, July is noted to be afebrile and BP runds high. The patient also reports that her BP runs high and her PCP trying adjust her BP medication and will have follow up in 2 weeks. The burning pain related to the wound area has decreased. We removed dressings, and I examined the wound site. The wound is improving, measuring smaller and the edge of wound bed started re-epithelizing. The surround wound area has mild erythema, but no purulent drainage or increased warmth. There was no foul odor. After examination, I discussed the indication of debridement and she was agreeable. I then performed debridement to remove devitalized tissues as outlined. She tolerated procedure well. The wound site were then cleansed with saline and thereafter, Aquacel applied onto the wound site and zinc to den wound areas. The site were then covered with a dry dressing. July is here for follow up of right buttock wound, The wound is improving with aquacel. Therefor we will continue to treat the wound with Aquacel. Patient was educated to protect wound site continue performing above dressing changes regularly with Aquacel. Advised patient to offload the pressure and ambulate more and try not to sit too long with the right side. S/S of infection reviewed and when to go to ED. Patient will have FU in one week and re-evaluate the wound and treatment next week. Patient verbalized understand and questions or concerns addressed at this time. I, ZAKI Johnson, examined, evaluated , and treated the patient. Dr. Diana Messina was available for any questions or concerns that I may have had. 10/25/2024 Pressure ulcer of right buttock, stage 3 (ICD-10 - L89.313) July presents for her follow up weekly appointment for right buttock wound. Her performs dressing changes every other day with Aquacel. She has no acute concerns at today's visit. On assessment today, July is noted to be afebrile and all other VS are stable.She marilynn pain/discomfort of wound. We removed her dressing and I examined the wound site to right buttock region. There is no foul odor or underlying s/s of infectious property. Right buttock wound is noted with improvement based on measurements and assessment from last visit. The wound last week was noted with a cluster of two, however is no longer a cluster of two. The wound bed has granulated tissue with scant slough. The den wound has fibrinous edges. She continues with moderate amount of serous drainage. After examination, I discussed the indication of debridement and she was agreeable. I then performed debridement to remove devitalized tissues as outlined above. She tolerated procedure well. The wound site were then cleansed with saline and thereafter, Aquacel applied onto the wound site and zinc to den wound areas. The site were then covered with a dry dressing. Continue with the above dressing changes every other day continue with weekly visits I, Eduardo Gill, MSN, TELEPHONE SERVICES SALES REPRESENTATIVE, OPTICAL EFFECTS LAYOUT PERSON-C, examined, evaluated, and treated the patient. Dr. Diana Messina was available for any questions or concerns that I may have had. 11/01/2024 Pressure ulcer of right buttock, stage 3 (ICD-10 - L89.313) 11/08/2024 Pressure ulcer of right buttock, stage 3 (ICD-10 - L89.313) 11/01/2024 Essential (primary) hypertension (ICD-10 - I10) 11/08/2024 Essential (primary) hypertension (ICD-10 - I10) 10/16/2024 Essential (primary) hypertension (ICD-10 - I10) 10/25/2024 Essential (primary) hypertension (ICD-10 - I10) 09/25/2024 Essential (primary) hypertension (ICD-10 - I10) 10/02/2024 Essential (primary) hypertension (ICD-10 - I10) 09/11/2024 Essential (primary) hypertension (ICD-10 - I10) 09/18/2024 Essential (primary) hypertension (ICD-10 - I10) 09/11/2024 Peripheral polyneuropathy (ICD-10 - G62.9) 09/25/2024 Peripheral polyneuropathy (ICD-10 - G62.9) 09/18/2024 Peripheral polyneuropathy (ICD-10 - G62.9) 10/02/2024 Peripheral polyneuropathy (ICD-10 - G62.9) 10/16/2024 Peripheral polyneuropathy (ICD-10 - G62.9) 11/08/2024 Peripheral polyneuropathy (ICD-10 - G62.9) 11/01/2024 Peripheral polyneuropathy (ICD-10 - G62.9) 10/25/2024 Peripheral polyneuropathy (ICD-10 - G62.9) 11/01/2024 Nadira Mcdowell continues with weekly appointment for right buttock wound. Dressing changes with Aquacel performed by her regularly. She has no acute concerns at today's visit. On assessment today, July is noted to be afebrile and all other VS are stable.She marilynn pain/discomfort of wound. We removed her dressing and I examined the wound site to right buttock region. There is no foul odor or underlying s/s of infectious property. Right buttock wound continues with improvement based on measurements and assessment from last visit. The wound bed has granulated tissue, and the den wound has fibrinous/callused edges. The surround tissue is pink, however this is area that is healed and is scar tissue. After examination, I discussed the indication of debridement and she was agreeable. I then performed debridement to remove devitalized tissues as outlined above. She tolerated procedure well. The wound site were then cleansed with saline and thereafter, Aquacel applied onto the wound site and zinc to den wound areas. The site were then covered with a dry dressing. Continue with the above dressing changes every other day consider as wound heals and drainage decreases, use of Puracol to promote woundhealing or xeroform for callus formations and antimicrobial property Patient reports sitting on a donut she purchased. We reviewed that inside the donut while sitting can create areas of surrounding pressure. She reports she will now use a pillow for better distribution of pressure/weight continue with weekly visits I, Eduardo Gill, MSN, TELEPHONE SERVICES SALES REPRESENTATIVE, OPTICAL EFFECTS LAYOUT PERSON-C, examined, evaluated, and treated the patient. Dr. Diana Messina was available for any questions or concerns that I may have had. I, Ernie Messina MD confirm that Eduardo Gill, MSN, TELEPHONE SERVICES SALES REPRESENTATIVE, OPTICAL EFFECTS LAYOUT PERSON-C understands and adheres to the guidelines of the established clinical protocols in the office. I confirm the above care provided was rendered under my general supervision as initially planned and subsequently discussed and supervised by me. 11/08/2024 Nadira Mcdowell presents for her weekly wound care appointmen. She is followed for right buttock wound. Dressing changes with Aquacel performed by her regularly. She has no acute concerns at today's visit. resolved area to Right buttock wound Patient is afebrile with no signs of skin infection. There was 100 % epithelialization noted with no open area. No debridement was performed at todays visit. Encouraged to use protective dressing for next few days for new fragile skin. Patient was educated to call wound clinic with any questions comments or concerns. Thank you for allowing us to care for your wound A total of 35 minutes was spent on this visit (face to face and non face to face) documenting HPI and performing physical exam, reviewing previous notes and testing, reviewing and adjusting treatment plan, counseling the patient on treatment choices, disease process, expected outcomes, and documenting the findings in the note. IEduardo, MSN, TELEPHONE SERVICES SALES REPRESENTATIVE, OPTICAL EFFECTS LAYOUT PERSON-C, examined, evaluated , and treated the patient. Dr. Diana Messina was available for any questions or concerns that I may have had. Plan Of Treatment No Information Insurance Providers Payer Name Payer Address Payer Phone Subscriber Number Group Number Insured Name Patient Relationship to Insured Coverage Start Date Coverage End Date Lisa [address] [place], [place] [id number] Olegario Molina Spouse - patient is the spouse of the insured 5 Medical (General) History Medical History History ICD Code Other psychoactive substance dependence, uncomplicated F19.20 Nephrolithiasis N20.0 Panic disorder F41.0 Peripheral polyneuropathy G62.9 Morbid (severe) obesity due to excess ca lories E66.01 GERD (gastroesophageal reflux disease) K 21.9 Obstructive sleep apnea G47.33 Alcohol abuse F10.10 Cognitive communication deficit R41.841 Depression F32.A Anxiety disorder F41.9 PTSD (post-traumatic stress disorder) F4 3.10 Fibromyalgia M79.7 Hypercholesterolemia E78.00 Essential (primary) hypertension I10 Kidney stones N20.0 Migraine G43.909 Osteoarthritis M19.90
== END 2025-03-10 11:37 | disposition home or self-care (01) ==
LOC: HO.MRI 11:36
PROVIDERS: PCP Internal Medicine; Visit Provider Physician Assistant Medical
DX: R41.89 Other symptoms and signs involving cognitive functions and awareness (principal)
CPT/HCPCS: 70551

== ENCOUNTER → 2025-03-10 11:42 | Outpatient (BNV) | payer OTHER, SELFPAY | PROVIDERS: PCP Internal Medicine; Visit Provider Radiology Diagnostic Radiology | DX: R41.89 Other symptoms and signs involving cognitive functions and awareness (principal) | CPT/HCPCS: 70551 ==

== ENCOUNTER 2025-04-26 11:00 | Outpatient (AMB) | payer OTHER, SELFPAY ==
--- OUTSIDE RECORDS SUMMARY | 2025-04-25 23:59 | XMS_ITS | Continuity of Care Document ---
Author Organization [facility] Address [address] [place] [address] [address], [address] [place] [address]- Care Team Providers Care Fermenter Name Role Phone Khris Hernandez MD, [facility] Phys [facility] Encounter [facility] Date(s): 12/07/24 - 04/25/25 [facility] [address] [place] [address] Drive [address] [place], [place] [address] Attending Physician: Eneida Farfan MD Encounter Type: Pre Office Visit Allergies, Adverse Reactions, Alerts Substance Criticality Severity Reaction Reaction Severity Status Wellbutrin Active Chantix Active Immunizations Given and Recorded Vaccine Date Status Refusal Reason influenza virus vaccine, inactivated 11/18/11 Give n Medications Aimovig SureClick Autoinjector-aooe 140 mg/mL subcutaneous solution = 140 mg, Subcutaneous Infusion, Every 28 days, 0 Refills, Maintenance, 09/06/24 12:52:00 PM EST, Partial fill upon patient request if the prescription is for a schedule II opioid drug. Start Date: 09/06/24 Status: Ordered Repeat number: 1 Albuterol (Eqv-ProAir HFA) 90 mcg/inh inhalation aerosol 2 puffs, Inhalation, 4 times a day, PRN NEEDED FOR WHEEZING/SHORTNESS OF BREATH, # 1 each, 11 Refills, Maintenance, 05/15/24 2:03:00 PM EDT, [facility]/pharmacy #[id number], 2 puffs Inhalation 4 times a day,PRN: NEEDED FOR WHEEZING/SHORTNESS OF BREATH, 160, cm, 05/15/24 10:25:00 EDT, Height, 125, kg, 07/23/23 14:16:00 EST, Dry Weight Start Date: 05/15/24 Status: Ordered Quantity: 1.0 Unit: each Repeat number: 12 ALPRAZolam 1 mg oral tablet 3.5 tablet = 3.5 mg, By Mouth, Daily, 0 Refills, Maintenance, 06/30/20 11:41:00 AM EDT Start Date: 06/30/20 Status: Ordered Repeat number: 1 amitriptyline 25 mg oral tablet 25 mg, 1, tablet, By Mouth, Daily at bedtime, Refills 0, Maintenance, 06/30/20 11:41:00 AM EDT Start Date: 06/30/20 Status: Ordered Repeat number: 1 [employer] CP[facility] supplies [employer] CP[employer] supplies, See Instructions, # 1 each, Refills 11, Tot. Refills 11, Maintenance, CPAP Supplies mask, tubing, filters, headgear, chin strap, and water chamber. Patient is compliant with PAP use and continued use is required for medical benefit Length of need: Lifetime 99, 07/22/21 12:58:00PM EST, Supply, 160, cm, 08/15/20 10:56:00 EST, Height Start Date: 07/22/21 Status: Ordered Quantity: 1.0 Unit: each Repeat number: 12 Indications: Obstructive sleep apnea (adult) (pediatric); busPIRone 10 mg oral tablet 10 mg, 1, tablet, By Mouth, 2 times a day, Refills 0, Maintenance, 06/22/24 8:58:00 AM EDT, Partialfill upon patient request if the prescription is for a schedule II opioid drug. Start Date: 06/22/24 Status: Ordered Repeat number: 1 CPAP Mask Request CPAP Mask Request, See Instructions, # 1 each, Refills 11, Tot. Refills 11, Maintenance, nasal CPAPmask with no nasal pillows with chin strap, [employer] is [employer] G47.33 KATLYN Qty: 1 each Refills:, 07/19/23 4:47:00 PM EST, Supply Start Date: 07/19/23 Status: Ordered Quantity: 1.0 Unit: each Repeat number: 12 cyclobenzaprine 10 mg oral tablet 10 mg, 1, tablet, By Mouth, 3 times a day, Refills 0, Maintenance, 06/22/24 8:59:00 AM EDT, Partialfill upon patient request if the prescription is for a schedule II opioid drug. Start Date: 06/22/24 Status: Ordered Repeat number: 1 diclofenac 1% topical gel = 2 Gm, Topically, 4 times a day, 0 Refills, Maintenance, 06/22/24 9:00:00 AM EDT, Partial fill upon patient request if the prescription is for a schedule II opioid drug. Start Date: 06/22/24 Status: Ordered Repeat number: 1 Estradiol 0 Refills, Maintenance, 06/22/24 9:00:00 AM EDT, Partial fill upon patient request if the prescription is for a schedule II opioid drug. Start Date: 06/22/24 Status: Ordered Repeat number: 1 gabapentin 400 mg oral capsule 400 mg, 1, capsule, By Mouth, 3 times a day, Refills 0, Maintenance, 06/30/20 11:38:00 AM EDT Start Date: 06/30/20 Status: Ordered Repeat number: 1 ipratropium nasal 21 mcg/inh spray See Instructions, INSTILL 2 SPRAYS INTO BOTH NOSTRILS DAILY AT BEDTIME FOR 30 DAYS, # 90 Unknown, 3Refills, Maintenance, 10/18/24 11:16:00 AM EST, [facility] STORE [id number], 30, INSTILL 2 SPRAYS INTO BOTH NOSTRILS DAILY AT BEDTIME FOR 30 DAYS, 160, cm, 09/06/24 12:39:00 EST, Height, 115, kg, 06/25/24 21:14:00 EDT, Dry Weight Start Date: 10/18/24 Status: Ordered Quantity: 90.0 Unit: Unknown Repeat number: 1 naproxen 500 mg oral delayed release tablet 1 tablet = 500 mg, By Mouth, 2 times a day, # 60 tablet, 0 Refills, Maintenance, 06/30/20 11:38:00 AM EDT, EC Tablet Start Date: 06/30/20 Status: Ordered Quantity: 60.0 Unit: tablet Repeat number: 1 nicotine 21 mg/24 hr transdermal film, extended release 1 patch, Topically, Daily, # 28 patch, 1 Refills, Maintenance, 11/24/22 3:38:00 PM EDT, [facility] ST[id number], 28, APPLY 1 PATCH TOPICALLY DAILY, 160, cm, 01/14/22 10:12:00 EDT, Height Start Date: 11/24/22 Status: Ordered Quantity: 28.0 Unit: patch Repeat number: 1 omeprazole 40 mg oral enteric coated capsule 1 capsule = 40 mg, By Mouth, Daily, 0 Refills, Maintenance, 09/24/10 4:17:11 PM EST Start Date: 09/24/10 Status: Ordered Repeat number: 1 ondansetron 8 mg oral tablet 1 tablet = 8 mg, By Mouth, 3 times a day, 0 Refills, Maintenance, 06/22/24 9:00:00 AM EDT, Partial fill upon patient request if the prescription is for a schedule II opioid drug. Start Date: 06/22/24 Status: Ordered Repeat number: 1 OXcarbazepine 600 mg oral tablet 1 tablet = 600 mg, By Mouth, 2 times a day, # 60 tablet, 0 Refills, Maintenance, 06/30/20 11:37:00 AM EDT, Tablet Start Date: 06/30/20 Status: Ordered Quantity: 60.0 Unit: tablet Repeat number: 1 prazosin 1 mg oral capsule 1 mg, 1, capsule, By Mouth, 3 times a day, Refills 0, Maintenance, 06/22/24 8:59:00 AM EDT, Partialfill upon patient request if the prescription is for a schedule II opioid drug. Start Date: 06/22/24 Status: Ordered Repeat number: 1 rosuvastatin 40 mg oral capsule 1 capsule = 40 mg, By Mouth, Daily, 0 Refills, Maintenance, 06/22/24 8:58:00 AM EDT, Partial fill upon patient request if the prescription is for a schedule II opioid drug. Start Date: 06/22/24 Status: Ordered Repeat number: 1 Solifenacin = 10 mg, By Mouth, Daily, 0 Refills, Maintenance, 06/25/24 6:52:00 PM EDT, Partial fill upon patient request if the prescription is for a schedule II opioid drug. Start Date: 06/25/24 Status: Ordered Repeat number: 1 Sumatriptan = 100 mg, By Mouth, Daily, PRN as needed for migraine headache, 0 Refills, Maintenance, 09/24/10 4:19:26 PM EST Start Date: 09/24/10 Status: Ordered Repeat number: 1 traZODone 100 mg oral tablet 100 mg, 1, tablet, By Mouth, Daily, Refills 0, Maintenance, 06/30/20 11:39:00 AM EDT Start Date: 06/30/20 Status: Ordered Repeat number: 1 Trelegy Ellipta 100 mcg-62.5 mcg-25 mcg/inh inhalation powder 1 puffs, Inhalation, Daily, at the same time every day, # 1 each, 11 Refills, Maintenance, 06/07/24 11:23:00 AM EDT, Powder, [facility]/pharmacy #[id number], Partial fill upon patient request if the prescription is for a schedule II opioid drug., 160, cm, 06/07/24 10:57:00 EDT, Height, 125, kg, 07/23/23 14:16:00EST, Dry Weight Start Date: 06/07/24 Stop Date: 06/02/25 Status: Ordered Quantity: 1.0 Unit: each Repeat number: 12 valsartan 80 mg oral tablet 80 mg, 1, tablet, By Mouth, Daily, Refills 0, Maintenance, 06/22/24 8:58:00 AM EDT, Partial fill upon patient request if the prescription is for a schedule II opioid drug. Start Date: 06/22/24 Status: Ordered Repeat number: 1 venlafaxine 150 mg oral capsule, extended release See Instructions, 1 capsule By Mouth in morning and at noon with food, # 60 tablet, 0 Refills, Maintenance, 10/20/10 10:32:21 AM [facility], [id number] Start Date: 10/20/10 Status: Ordered Quantity: 60.0 Unit: tablet Repeat number: 1 verapamil 120 mg oral capsule, extended release 1 capsule = 120 mg, By Mouth, Daily, 0 Refills, Maintenance, 06/22/24 8:59:00 AM EDT, Partial fill upon patient request if the prescription is for a schedule II opioid drug. Start Date: 06/22/24 Status: Ordered Repeat number: 1 Vitamin D3 2000 intl units oral capsule 1 capsule = 2,000 International_Units, By Mouth, Daily, 0 Refills, Maintenance, 11/17/11 9:14:07 AM EDT Start Date: 11/17/11 Status: Ordered Repeat number: 1 Problem List Condition Confirmation Course Effective Dates Status Health Status Informant Cigarette smoker Confirmed 10/04/17 Active Female stress incontinence Confirmed 04/21/23 Active Gastroesophageal reflux disease Confirmed 01/14/18 Active Hypercholesterolemia Confirmed 10/04/17 Active Hypertensive disorder Confirmed 10/04/17 Active Impaired cognition 1 Confirmed 10/04/17 Active IUD threads lost Confirmed 04/21/23 Active Kidney stone Confirmed 06/22/24 Active Lung nodule seen on imaging study Confirmed Active Nondependent alcohol abuse in remission Confirmed 10/04/17 Active Obstructive sleep apnea syndrome 2 Confirmed 01/14/18 Active Osteoarthritis of knee Confirmed 10/04/17 Active Overactive bladder Confirmed 04/21/23 Active Polyneuropathy Confirmed 08/26/21 Active Posttraumatic stress disorder Confirmed 10/04/17 Active Severe obesity Confirmed Active Vitamin D deficiency Confirmed 08/26/21 Active 1Outside Source Comment: Overview: Per pt, on disability, reportedly evaluated by Dr Ca Redding cl inical neuropsychologist. 2Outside Source Comment: Overview: No diagnostic study on file.? 08/06/2021 [facility] Polysomnogram PAP treatment study. Date 08/26/2021. Wt 249#; BMI 44; SE 90 % SM 98 %; spent 6 % of the study in REM. O n CPAP @ 11; AHI 2.4, average oxygen saturation was 90%. For the entire study, PLMs ~0. Social History Social History Type Response Smoking Status 10 or more cigarette s (1/2 pack or more)/day in last 30 days entered on: 09/06/24 Sex Sex Representation Female (finding) Patient Care team information Care Team Personnel Name: Brooke Clark MD Position: Reference Physician Member Role: PCP Address: [address] [place] [address] [place] [address]- Telecom: Care Team Related Persons Name: JULISSA CASILLAS Name: BERKLEY CASILLAS Insurance Providers Guarantor name: RICH MENDEZ [employer] [facility] Information #: 1 Payer: [facility] [employer] Payer Identifier: NA Member Number: [id number] Group Number: [id number] Subscriber Identifier: [id number] Relationship to Subscriber: spouse Coverage Type: Commercial Indemnity Coverage Verification Date: NA Telecom: NA Address: NA
--- OUTSIDE RECORDS SUMMARY | 2025-04-26 11:06 | XMS_ITS | Clinical Summary ---
Author Organization [facility] [address] [facility] Address [address] [place] [address] Phone Care Team Providers Care Exchange Underwriting Consultant Name Role Phone Brooke Osorio MD Primary [...] PUFFS 4 TIMES A DAY NEEDED FOR WHEEZING/SHOR TNESS OF BREATH Active ALPRAZolam (XANAX) 1 mg tablet TAKE 1 TABLET BY MOUTH 3 TIMES A DAY NEEDED FOR SLEEP Active busPIRone (BUSPAR) 10 mg tablet TAKE 1/2 TABLET BY MOUTH TWICE A DAY FOR 1 WEEK THEN TAKE 1 TAB TWICE A DAY THEREAFTER Active fluticasone propion-salmetero L (Advair Diskus) 500-50 mcg/dose diskus inhaler INHALE 1 PUFF BY MOUTH 2 TIMES A DAY Active ipratropium (ATROVENT) 21 mcg (0.03 %) nasal spray INSTILL 2 SPRAYS INTO BOTH NARES DAILY AT BEDTIME FOR 30 DAYS Active traZODone (DESYREL) 300 mg tablet Take [...] for nausea or vomiting. 20 tablet Active fluticasone-umecl idinium-vilantero l (TRELEGY ELLIPTA) 100-62.5-25 mcg inhaler Inhale by mouth. 2024 Active SUMAtriptan (IMITREX) 6 mg/0.5 mL subcutaneous solution pen PLEASE SEE ATTACHED FOR DETAILED DIRECTIONS Active hydrocolloid dressing 4 X 5 bandage Apply to wound every 3 days 1 each 1 Active diphenoxylate-atr opine (LOMOTIL) 2.5-0.025 mg per tablet TAKE 1 TABLET BY MOUTH IF NEEDED FOR DIARRHEA. 30 tablet 3 025 Active cyclobenzaprine (FLEXERIL) 10 mg tablet [...] (140 mg total) under the skin. Active rosuvastatin (CRESTOR) 40 mg tablet TAKE 1 TABLET BY MOUTH EVERY DAY 90 tablet 1 Active verapamil ER (VERELAN) 120 mg 24 hr capsule TAKE 1 CAPSULE (120 MG TOTAL) BY MOUTH AT BEDTIME. 90 capsule 1 025 Active naproxen (NAPROSYN) 500 mg tablet TAKE 1 TABLET BY MOUTH TWICE A DAY WITH FOOD 180 tablet 1 Active omeprazole (PriLOSEC) [address] capsule Take 1 capsule (40 mg total) by mouth 1 (one) time each day. 90 capsule 1 Active indapamide (LOZOL) 1.25 mg tablet TAKE 1 TABLET (1.25 MG TOTAL) BY MOUTH 1 (ONE) TIME EACH DAY IN THE MORNING. 90 tablet 1 025 2025 Active valsartan (DIOVAN) 320 mg tablet TAKE 1 TABLET BY MOUTH 1 TIME EACH DAY. 90 tablet 1 Active diclofenac (VOLTAREN) 1 % topical gel Apply 4 g topically 2 times daily. 024 2024 Discontinued nicotine (NICODERM CQ) 21 mg/24 hr APPLY 1 PATCH TOPICALLY DAILY 022 2024 Discontinued omeprazole (PriLOSEC) [address] capsule TAKE 1 CAPSULE BY MOUTH EVERY DAY 90 capsule 1 024 2024 Discontinued(R eorder) doxycycline hyclate (VIBRA-TABS) 100 mg tablet TAKE 1 TABLET BY MOUTH TWICE A DAY FOR 14 DAYS. LIMIT SUN EXPOSURE WHILE TAKING. 024 2024 Discontinued tirzepatide, weight loss, (ZEPBOUND) 5 mg/0.5 mL injectionIndicati ons:KATLYN (obstructive sleep apnea),Morbid obesity ([facility] V24, [facility] V28),Class 3 severe obesity due to excess calories with serious comorbidity and body mass index (BMI) of 45.0 to 49.9 in adult ([facility] V24, [facility] V28) Inject 0.5 mL (5 mg total) under the skin every 7 (seven) days. 2 mL 025 2024 Discontinued oxyCODONE-acetami nophen (PERCOCET) 5-325 mg per tabletIndications :Chronic wound Take 1 tablet by mouth every 8 (eight) hours if needed for severe pain. Max Daily Amount: 3 tablets 20 tablet 025 2024 Discontinued valsartan (DIOVAN) 320 mg tablet TAKE 1 TABLET BY MOUTH 1 TIME EACH DAY. 90 tablet 1 025 2024 Discontinued indapamide (LOZOL) 1.25 mg tablet Take 1 tablet (1.25 mg total) by mouth 1 (one) time each day in the morning. 30 each 2 025 2024 Discontinued Active Problems Problem Noted Date Diagnosed Date Concentric left ventricular hypertrophy 04/19/20 Medical marijuana use 04/10/2025 Memory loss 01/16/2025 Prediabetes 09/05/2024 Polysubstance dependence ([place] V24, [facility] V 28) 06/22/2024 Nephrolithiasis 06/22/2024 Panic disorder 06/22/2024 IUD threads lost 04/21/2023 Overview (06/14/2024): Added automatically from request for surgery [id number] Overactive bladder 04/21/2023 Overview (06/14/2024): Added automatically from request for surgery [id number] AMNA (stress urinary incontinence, female) 2022 Overview (06/14/2024): Added automatically from request for surgery [id number] Peripheral polyneuropathy 08/26/2021 Vitamin D deficiency 08/26/2021 Morbid obesity ([place] V24, [place] V28) 2019 GERD (gastroesophageal reflux disease) 8 KATLYN (obstructive sleep apnea) 01/14/2018 Overview (06/14/2024): No diagnostic study on file.? 08/06/2021 [facility] [...] 10/04/2017 Overview (06/14/2024): Psychologist, Dr Gwen Torres, [facility] PTSD (post-traumatic stress disorder) 10/04/2017 Fibromyalgia 10/04/2017 Overview (06/14/2024): historic Pt tried and failed Gabapentin 300mg prescribed by previous PCP Hypercholesteremia 10/04/2017 Hypertension 10/04/2017 Kidney stones 10/04/2017 Migraine headache 10/04/2017 Overview (06/14/2024): Sees Dr Valverde Osteoarthritis, knee 10/04/2017 Encounters Date Type Department Care Team Description 04/19/2025 7:00 AM EDT Ancillary Procedure [facility] - [address] [place] [address] Hypertension, unspecified type; Cardiac murmur 04/10/2025 11:15 AM EDT Office Visit Adult Medicine [facility] [address] [place] [address] Joesph Perez PA Hypertension, unspecified type (Primary Dx); Morbid obesity (CMS/HCC V24, CMS/HCC V28); KATLYN (obstructive sleep apnea); Peripheral polyneuropathy; Medical marijuana use 04/10/2025 Telephone Adult Medicine [facility] [address] [place] [address] Joesph Perez PA from Last 3 Months Immunizations Name Administration [...] Comments KATLYN (obstructive sleep apnea) 01/14/2018 DX :KATLNY (obstructive sleep apnea) GERD (gastroesophageal reflux disease) 01/14/2018 DX:GERD (gastroesophageal reflux disease) Overactive bladder AMNA (stress urinary incontin ence, female) Peripheral neuropathy Vitamin D deficiency Morbid obesity (CMS/HCC V24, CMS/HCC V28) Alcohol abuse IN REMISSION Depression Anxiety PTSD (post-traumatic stress disorder) Fibromyalgia Hypertension Migraine headache Osteoarthritis Presence of neurostimulator FOR BLADDER CONTROL Concentric left ventricular hypertrophy 04/19/20 25 Family History Medical History Relation Name Comments [...] drink = 0.6 oz pur e alcohol) Housing Instability Answer Date Recorde d Are you worried that in the next 2 months you may not have stable housing? No 04/04/2025 Food Access & Nutrition Answer Date Rec orded Do you have access to a vari ety of food including fruits and vegetables? Yes 04/04/2025 Health Literacy Answer Date Recorded How often do you need to hav e someone help you when you read instructions, pamphlets, or other written material from your doctor or pharmacy? Rarely 04/04/2025 Caregiver: How often do you need to have someone help you when you read instructions, pamphlets, or other written material from your doctor or pharmacy? Not on file 04/04/2025 Financial Risk Answer Date Recorded How hard is it for you to pa y for the very basics like food, housing, medical care, and air conditioning / heating? Somewhat hard 04/04/2025 Transportation Answer Date Recorded Has the lack of transportati on kept you from meetings, work, or from getting things needed for daily living? No Has the lack of transportati on kept you from medical appointments or from getting medications? No 04/04/2025 Social Isolation Answer Date Recorded How often do you feel lonely or isolated from those around you? Sometimes 04/04/2025 Food Risk Answer Date Recorded Within the past 12 months we worried whether our food would run out before we got money to buy more. Never true 04/04/2025 Within the past 12 months th e food we bought just didn't last and we didn't have money to get more. Never true 04/04/2025 Dependent Care Answer Date Recorded Do you need help finding or paying for care for your loved ones. For example, child psychometrist or elderly care for an older adult? Patient declined 04/04/2025 Education Answer Date Recorded Do you think completing more education or training, like finishing a GED, going to college, or learning a trade, would be helpful for you? No 04/04/2025 Employment and Income Answer Date Recor ded During the last four weeks, have you been actively looking for work? No 04/04/2025 Living Situation Answer Date Recorded What is your living situation? 0 04/04/2025 Interpersonal Safety Answer Date Record ed Physical Abuse 08/31/2024 Verbal Abuse 08/31/2024 Comments No Sex and Gender Information Value Date Recorded Sex Assigned at Not on file Legal Sex Female 3:45 PM EST Gender Identity Not on file Sexual Orientation Not on file Obstetrics History Last Filed Vital Signs Vital Sign Reading Time Taken Comments Blood Pressure 140/80 04/19/2025 7:42 AM EDT Pulse 76 04/10/2025 11:03 AM EDT Temperature 36.7 C (98 F) 04/10/2025 11:03 AM EDT Respiratory Rate 16 08/31/2024 1:53 PM EST Oxygen Saturation 97% 08/31/2024 1:53 PM EST Inhaled Oxygen Concentration - - Weight 108 kg (239 lb) 04/19/2025 7:42 AM EDT Height 160 cm (5' 3 ) 04/19/2025 7:42 AM EDT Body Mass Index 42.34 04/19/2025 7:42 AM EDT Plan of Treatment Upcoming Encounters Date Type Department Care Team (Late st Contact Info) Description 08/12/2025 11:15 AM EST Office Visit Adult Medicine [address] [phone] Joesph Perez PA [address] [place] [address] Health Maintenance Due Date Last Done Comments DTaP,Tdap,and Td Vaccines (1 - Tdap) 1986 Hepatitis A Vaccines (1 of 2 - Risk 2-dose series) 1986 Hepatitis B Vaccines (1 of 3 - 19+ 3-dose series) 1986 Pneumococcal Vaccine: 50+ Years (1 of 2 - PCV) 1986 Cervical Cancer Screening: P ap Smear 1988 Zoster Vaccines (1 of 2) 2017 HIV Screening 08/14/2022 Hepatitis C Screening 08/14/2022 COVID-19 Vaccine (3 - 2023-2 5 season) 2024 01/01/2021, 12/04/2020 Influenza Vaccine (#1) 2025 8, 05/11/2018, 11/18/2011 Hypertension/CHF/CAD Annual BMP Blood Test 09/04/2025 09/04/2024, 07/26/2024, 04/11/2023 Social Influencers of Health Screening 04/04/2026 04/04/2025 Breast Cancer Screening 06/28/2026 06/28/20 24, 06/28/2024, 12/05/2023 Cholesterol Screening (Lipid Panel) 07/26/2029 07/26/2024, 07/18/2023 Colorectal Cancer Screening: Colonoscopy 08/31/2034 08/31/2024 Depression Screening Completed 04/03/2025 HIB Vaccines Aged Out No longer eligi [...] Procedure Name Priority Date/Time Associated Diagnosis Comments TRANSTHORACIC ECHOCARDIOGRAM (TTE) COMPLETE Routine 04/19/2025 7:42 AM EDT Hypertension, unspecified type Cardiac murmur EXTERNAL MRI REPORT 03/10/2025 EXTERNAL MRI REPORT 03/10/2025 BASIC METABOLIC PANEL Routine 09/04/2024 2:43 PM EST Hyponatremia COLONOSCOPY Routine 08/31/2024 1:32 PM EST Colon cancer screening LIPID PANEL WITH REFLEX TO DIRECT LDL Routine 07/26/2024 9:59 AM EST Routine general medical examination at [facility] DIAGNOSTIC MAMMOGRAPHY WITH CAD UNILATERAL Routine 06/28/2024 2:38 PM EDT Unspecified lump in unspecified breast from Last 3 Months or Most Recently Relevant to Health Maintenance Results * (ABNORMAL) TRANSTHORACIC ECHOCARDIOGRAM (TTE) COMPLETE (04/19/2025 7:42 AM EDT) Left Atrium Minor [place] 6.8 cm CV PACS Left Atrium Major [place] 5.6 cm CV PACS LA Area Sys (A2C) 26 cm2 CV PACS LA Area Sys (A4C) 20 cm2 CV PACS LA Volume (BP) 75 mL CV PACS RA Area 12.3 cm2 CV PACS RA 2D Volume 25 mL CV PACS AV Mean Gradient 8 mmHg CV PACS Ao VTI 43.4 cm CV PACS AV Peak Sacha 1.9 m/s CV PACS AV Peak Gradient 14 mmHg CV PACS AV Area Continuity Equation 3.0 cm2 CV PACS AV Area Peak Velocity 3.0 cm2 CV PACS Aortic Sinus Valsalva 2.9 cm CV PACS Ascending Aorta 3.5 cm CV PACS IVC Proximal 1.6 cm CV PACS IVC Proximal 1.1 cm CV PACS IVSD 1.0(A) 0.6 - 0.9 cm CV PACS LVIDD 5.4(A) 3.8 - 5.2 cm CV PACS LVIDS 3.6(A) 2.2 - 3.5 cm CV PACS LVOT Diameter 2.3 cm CV PACS LVOT Mean Sacha 0.9 m/s CV PACS LVOT Mean Grad 4 mmHg CV PACS LVOT Peak VTI 31.6 cm CV PACS LVOT Peak Sacha 1.4 m/s CV PACS LVOT Peak Gradient 8 mmHg CV PACS LVPWD 1.0(A) 0.6 - 0.9 cm CV PACS MV E' Tissue Velocity Lateral 7 cm/s CV PACS MV E' Tissue Velocity Septal 5 cm/s CV PACS LVOT Area 4.2 cm2 CV PACS LVOT Stroke Volume 131 mL CV PACS E Wave Deceleration Time 225 119 - 242 ms CV PACS MV Peak A Sacha 0.94 m/s CV PACS MV Peak E Sacha 0.84 m/s CV PACS PV Acceleration Time 141 ms CV PACS PV Acceleration Time 141 ms CV PACS RV Diastolic Basal Dimension 3.4 2.5 - 4.1 cm CV PACS RV S' 14 cm/s CV PACS TAPSE 26 mm CV PACS E/E' Ratio Septal 17 CV PACS E/E' Ratio Averaged 14 CV PACS Relative Wall Thickness ratio 0.37 CV PACS LVOT:AV VTI Index 0.73 CV PACS FS 33 % CV PACS LV Mass 2D 207 g CV PACS LVOT flow 374 mL/s CV PACS AV Velocity Ratio 0.74 CV PACS E/A Ratio 0.9 CV PACS E/E' Ratio Lateral 12 CV PACS BSA 2.2 m2 CV PACS LA Volume Index (BP) 36 mL/m2 CV PACS LVIDD Index 2.58 cm/m2 CV PACS LVIDS Index 1.72 cm/m2 CV PACS LV Mass Index 2D 99(A) 44 - 88 g/m2 CV PACS LVOT Stroke Index 63 mL/m2 CV PACS RA 2D Volume Index 12(A) 15 - 27 mL/m2 CV PACS JOB Index (VTI) 1.45 cm2/m2 CV PACS JOB Index (Pk Sacha) 1.44 cm2/m2 CV PACS Ascending Aorta Index 1.67 cm/m2 CV PACS Anatomical Region Laterality Modality Ultrasound Narrative 04/19/2025 8:07 AM EDT Left ventricle cavity is mildly dilated. There is mild concentric hypertrophy. Systolic function is normal with an ejection fraction in the 55-70% range. There are no regional LV wall motion abnormalities. No hemodynamically significant valvular dysfunction There is no prior study available for comparison Left Ventricle Left ventricle cavity is mildly dilated. There is mild concentric hypertrophy. Systolic function is normal with an ejection fraction in the 55-70% range. There are no regional LV wall motion abnormalities. There is Grade II (moderate) diastolic dysfunction. Right Ventricle Right ventricle cavity appears normal. Systolic function is normal. Left Atrium Left atrium cavity is mildly dilated. Right Atrium Right atrium cavity is small. IVC/SVC Inferior vena cava structure is normal. RA pressures is estimated to be 8 mmHg (IVC diameter <21 mm and decreases <50% during inspiration). Mitral Valve Mitral valve structure is normal. There is mild annular calcification. There is trace regurgitation. There is no evidence of mitral valve stenosis. Tricuspid Valve Tricuspid valve structure is normal. There is trace regurgitation. Tricuspid regurgitation is inadequate for estimation of right ventricular systolic pressure. There is no significant tricuspid valve stenosis. Aortic Valve Number of aortic valve cusps cannot be determined. The leaflets are not thickened and exhibit normal excursion. There is trace regurgitation with a centrally directed jet. There is no evidence of aortic valve stenosis. Pulmonic Valve The pulmonic valve was not well visualized. No significant pulmonic valve regurgitation. No significant pulmonary valve stenosis noted. Ascending Aorta The aorta appears normal in size. Pericardium Pericardium appears normal. There is no pericardial effusion. Study Details Overall the study quality was adequate. Joesph SOARES CV ECHO PROCEDURES Final Resul t * External MRI Report (03/10/2025) Only the most recent of2 resultswithin the time period is included. Anatomical Region Laterality Modality Magnetic Resonan ce Provider [facility] IM[facility] MRI PROCEDURES Final Result * Basic metabolic panel (09/04/2024 2:43 PM EST) Sodium 135 133 - 145 mmol/L LAB CHEMISTRY METHOD 09/04/2024 4:58 PM EST [facility] Potassium 4.3 3.5 - 5.5 mmol/L LAB CHEMISTRY METHOD 09/04/2024 4:58 PM [facility] Chloride 107 96 - 110 mmol/L LAB CHEMISTRY METHOD 09/04/2024 4:58 PM [facility] CO2 24 21 - 32 mmol/L LAB CHEMISTRY METHOD 09/04/2024 4:58 PM [facility] Anion Gap 4 3 - 11 LAB CHEMISTRY METHOD 09/04/2024 4:58 PM [facility] Glucose 93 70 - 100 mg/dL LAB CHEMISTRY METHOD 09/04/2024 4:58 PM [facility] BUN 13 5 - 25 mg/dL LAB CHEMISTRY METHOD 09/04/2024 4:58 PM [facility] Creatinine 1.00 0.50 - 1.10 mg/dL LAB CHEMISTRY METHOD 09/04/2024 4:58 PM [facility] eGFR 66 >=60 mL/min/1. 73m2 LAB CHEMISTRY METHOD 09/04/2024 4:58 PM [facility] Comment:Calculation based on the Chronic Kidney Disease Epidemiology Collaboration (CKD-EPI) equation refit without adjustment for race. BUN/Creatinine Ratio 13.0 LAB CHEMISTRY METHOD 09/04/2024 4:58 PM [facility] Calcium 8.6 8.5 - 10.5 mg/dL LAB CHEMISTRY METHOD 09/04/2024 4:58 PM [facility] Blood Venous blood specimen / Unknown Venipuncture / Unknown 09/04/2024 2:43 PM EST 09/04/2024 2:43 PM EST us Sis SOARES LAB BLOOD ORDERABLES Final Result [facility] [address] [place] [address], * COLONOSCOPY Anesthesia - MAC; [facility] ENDOSCOPY (08/31/2024 1:32 PM EST) Anatomical [...] purposes. Narrative 08/31/2024 1:33 PM EST [facility] GI Patient Name: Rich Styles Procedure Date: 08/31/2024 1:08 PM Date [...] In: Scope Out: Endoscopy Department at [facility] - [address] [place] [phone] Procedure Note Alvaro Lebron MD - 08/31/2024 [facility] GI Patient Name: Rich Styles Procedure Date: 08/31/2024 1:08 PM Date [...] In: Scope Out: Endoscopy Department at [facility] - [address] [place] [id number] IMPRESSION: - Diverticulosis in the left colon. [...] colonoscopy in 10 years for screening purposes. Alvaro Lebron MD GI~PROCEDURE ORDERABLES Final R esult * Lipid panel with reflex to direct LDL (07/26/2024 9:59 AM EST) Cholesterol 154 0 - 200 mg/dL LAB CHEMISTRY METHOD 07/26/2024 12:20 PM [facility] Triglycerides 96 0 - 150 mg/dL LAB CHEMISTRY METHOD 07/26/2024 12:20 PM [facility] HDL 61 >=40 mg/dL LAB CHEMISTRY METHOD 07/26/2024 12:20 PM [facility] LDL Calculated 74 0 - 100 mg/dL LAB CHEMISTRY METHOD 07/26/2024 12:20 PM [facility] VLDL Cholesterol Robin 19.2 mg/dL LAB CHEMISTRY METHOD 07/26/2024 12:20 PM [facility] Non HDL Chol. (LDL+VLDL) 93 <145 mg/dL LAB CHEMISTRY METHOD 07/26/2024 12:20 PM [facility] Chol/HDL Ratio 2.5 0.0 - 4.4 LAB CHEMISTRY METHOD 07/26/2024 12:20 PM [facility] Blood Venous blood specimen / Unknown Venipuncture / Unknown 07/26/2024 9:59 AM EST 07/26/2024 9:59 AM EST Sis SOARES LAB BLOOD ORDERABLES Final Result [facility] [address] [place] [address], * DIAGNOSTIC MAMMOGRAPHY WITH CAD UNILATERAL (06/28/2024 [...] decreased, biopsy should be considered [facility] [address] [address] Procedure Note Lizzie Henriquez MD - 07/07/2024 [...] concern has notdecreased, biopsy should be considered [address] [id number] Joesph SOARES IMG BI PROCEDURES Final Result from Last 3 Months or Most Recently Relevant to Health Maintenance Insurance [employer] MED[employer] Care Teams Exchange Underwriting Consultant Relationship Specialty Start Date End Date Brooke Osorio MD [address] [place] [phone] PCP - General Internal Medicine 07/10/24
--- OUTSIDE RECORDS SUMMARY | 2025-04-26 11:06 | XMS_ITS | Patient Health Record ---
Author Organization [facility] Address [address] [facility] [address] [place] [address] Care Team Providers Care Telephone Operator Chief Name Role Phone Gunjan TOBIN, Cici Primary Care Provid er Unavailable Dayanara Fields Unavailable [phone] Sis Yo Unavailable Unavailab Eduardo Yang Unavailable [phone] Allergies Allergen (clinical drug ingredient) Drug/Non Drug [...] Status Risk Notes Problem Psychoactive substance dependence (9149216) Other psychoactive substance dependence, uncomplicated (F19.20) Active confirmed Problem Essential hypertension (24607670) Essential (primary) hypertension (I10) Active confirmed Problem Pressure injury of right buttock stage III (disorder) (87333869039202) Pressure ulcer of right buttock, stage 3 (L89.313) Active confirmed Problem Chronic ulcer of buttock (803841428) Non-pressure chronic ulcer of buttock with fat layer exposed (L98.412) Active confirmed Problem Fibromyalgia (125817371) Fibromyalgia (M79.7) Active confirmed Problem Cognitive communication disorder (203385241) Cognitive communication deficit (R41.841) Active confirmed Problem Posttraumatic stress disorder (01012094) PTSD (post-traumatic stress disorder) (F43.10) Active confirmed Problem Obstructive sleep apnea (69587601) Obstructive sleep apnea (G47.33) Active confirmed Problem Inflammatory and toxic neuropathy (860695421) Peripheral polyneuropathy (G62.9) Active confirmed Problem Hypercholesterolemia (76442990) Hypercholesterolemia (E78.00) Active confirmed Problem Gastroesophageal reflux disease (470225113) GERD (gastroesophageal reflux disease) (K21.9) Active confirmed Problem Alcohol abuse (13056788) Alcohol abuse (F10.10) Active confirmed Problem Osteoarthritis (558894460) Osteoarthritis (M19.90) Active confirmed Problem Kidney stone (89428109) Kidney stones (N20.0) Active confirmed Problem Migraine (57881235) Migraine (G43.909) Active c onfirmed Vital Signs [...] 11/08/2024 Encounters Encounter Location Date Provider Diagnosis [facility] [address] [address] 09/11/2024 Jooyun Fields Pressure ulcer of ri ght buttock, stage 3 L89.313 ; Essential (primary) hypertension I10 and Peripheral polyneuropathy G62.9 [place] [address] [address] 09/18/2024 Jooyun Fields Pressure ulcer of ri ght buttock, stage 3 L89.313 ; Essential (primary) hypertension I10 and Peripheral polyneuropathy G62.9 [facility] [address] [address] 09/25/2024 Jooyun Fields Pressure ulcer of ri ght buttock, stage 3 L89.313 ; Essential (primary) hypertension I10 and Peripheral polyneuropathy G62.9 [facility] [address] [address] 10/02/2024 Jooyun Fields Pressure ulcer of ri ght buttock, stage 3 L89.313 ; Essential (primary) hypertension I10 and Peripheral polyneuropathy G62.9 [facility] [address] [address] 10/16/2024 Dayanara Fields Pressure ulcer of ri ght buttock, stage 3 L89.313 ; Essential (primary) hypertension I10 and Peripheral polyneuropathy G62.9 [facility] [address] [address] 10/25/2024 Eduardo Gill Pressure ulcer of ri ght buttock, stage 3 L89.313 ; Essential (primary) hypertension I10 and Peripheral polyneuropathy G62.9 [facility] [address] [address] 11/01/2024 Eduardo Gill Pressure ulcer of ri ght buttock, stage 3 L89.313 ; Essential (primary) hypertension I10 and Peripheral polyneuropathy G62.9 [facility] [address] [address] 11/08/2024 Eduardo Gill Pressure ulcer of ri ght buttock, stage 3 L89.313 ; Essential (primary) hypertension I10 and Peripheral polyneuropathy G62.9 [facility] [address] [address] 09/07/2024 [facility] [address] [address] 09/11/2024 Dayanara Fields [facility] [address] [address] 10/30/2024 Eduardo Gill Assessments Encounter Date Diagnosis [...] with weekly visits I, Eduardo Gill, MSN, CIGARETTE MACHINE OPERATOR, POWER SWITCHBOARD OPERATOR-C, examined, evaluated, and treated the patient. Dr. [...] with weekly visits I, Eduardo Gill, MSN, CIGARETTE MACHINE OPERATOR, POWER SWITCHBOARD OPERATOR-C, examined, evaluated, and treated the patient. Dr. Diana Messina was available for any questions or concerns that I may have had. I, Ernie Messina MD confirm that Eduardo Gill, MSN, CIGARETTE MACHINE OPERATOR, POWER SWITCHBOARD OPERATOR-C understands and adheres to the guidelines of [...] the findings in the note. IEduardo, MSN, CIGARETTE MACHINE OPERATOR, POWER SWITCHBOARD OPERATOR-C, examined, evaluated , and treated the patient. Dr. Diana Messina was available for any questions or concerns that I may have had. Plan Of Treatment No Information Insurance Providers Payer Name Payer Address Payer Phone Subscriber Number Group Number Insured Name Patient Relationship to Insured Coverage Start Date Coverage End Date Lisa [address] [place], [place] [id number] Olegario Molina Spouse - patient is the [...]
--- OUTSIDE RECORDS SUMMARY | 2025-04-26 11:06 | XMS_ITS | Clinical Summary ---
Author Organization [facility] Address [address] [place] [address] Care Team Providers Care Head Field Hockey Coach Name Role Phone Unavailable Primary Care Provider Unavailabl e Active Problems Problem Noted Date Diagnosed Date AMNA (stress urinary incontinence, female) 2022 Overview: Added automatically from request for surgery [id number] Overactive bladder 04/21/2023 Overview: Added automatically from request for surgery [id number] IUD threads lost 04/21/2023 Overview: Added automatically from request for surgery [id number] Social History Tobacco Use Types Packs/Day Years [...]
[2025-04-26 11:10] VITALS: BP 128/86; PULSE 72; O2SAT 94; BMI 42.9
--- NOTE | 2025-04-26 11:10 | MHC.OFFVIS ---
Vital Signs 04/26/25 11:10 Height 5 ft 3 in Weight 242 lb 2 oz BMI 42.9 BP 128/86 Blood Pressure Location Lt brachial Position Sitting Pulse 72 Pulse Source Pulse Oximeter Pulse Oximetry (%) 94 Oxygen Delivery Method Room Air Intake Visit Reasons: 3 mth follow up Intake Note: Patient presents follow up Cognitive/KATLYN. MRI/compliance in chart(84/90 days, >=4hrs-92%, Average Usage-7hrs 5min, Med pressure-12.6, Med Leaks-3.1, AHI-2.7). Looking for results of MRI(shrinkage of temporal lobe) Accompanied by: Spouse Allergies bee venom protein (honey bee) Allergy (Unknown, Verified 04/26/25 11:18) Swelling chantix Allergy (Mild, Uncoded 07/10/24 10:58) behavior Wellbutrin Adverse Reaction (Unknown, Uncoded 07/10/24 10:57) Hives HPI Comments Details: 59 year old female presents for f/u of Tardive Dyskinesia like abnormal movements of the face and Chronic Migraines. Her Olegario is here today and helps with history. 07/2023 MRI reviewed with patient. She has KATLYN and is being followed by her PCP. Today she c/o cognitive deficits due to trauma as a teenager. states he notices she is forgetting events, day trips, if prompted she will recall, and is very confused with episodes of loss of time. She forgets to turn off the stove and mixes, or repeats words. Her STM and LTM has progressed and if tasks are not recorded on her phone she will forget them. She has MDD with anxiety, alpraolam TID, cyclobenzaprine for lower back pain chronic, Gabapentin 800mg po TID. She will stop seeing Dr. Powers, for PTSD start her therapist Yumiko Jones at the [facility]. She has chronic migraines were controlled with Amigov 140mg once injected then ubrelvy 50mg po has 10 pills and will take it as needed. >15 headache days a month and does not want to change the routine at this time. Imitrex tablets, 2x a 100mg, and will take another one week manages her headaches and prevents them from developing into migraines. She still wakes up with migraines 4-5x a week and they can last for days. Imitrex injections are effective with onset of migraine, preventive is Aimovig.Migraines are 10/10 painful, debilitating, with phonophobia/ photophobia/ with floater and blurry vision smells has nausea, vomiting, vertigo as if she is spinning internally and balance difficulties. last fall was 3 days fell, back hurts, slipped on surface stiven Ziegler is concerned about tremors, nueropathy, parasthesias in bilateral legs worse at night, feet and hands, EMG and NCS requested from [place]. She is staying active, drinks water daily 16.9 (4), Knees hurt when she walks, she does not have the ability to go to the pool. Sleeping through the night and gets up at 3:30am, cleaning, [facility] Medical History Cognitive deficit due to 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 Post traumatic stress disorder Alcohol abuse, in remission Kidney stone Osteoarthritis, knee Migraine headache Fibromyalgia Depression with anxiety Hypercholesteremia Benign hypertension Hot flashes Gastro-esophageal reflux disease without esophagitis Mild obstructive sleep apnea Morbid obesity Vitamin D deficiency Polyneuropathy, unspecified Surgical History History of lithotripsy History of eye surgery Family History Mother Hypertension Alcohol abuse Father Bypass graft mechanical complication Social History Patient Tobacco Use Status: Current everyday Tobacco user Cigarette Packs Per Day: 0.25 Physical Exam Vital Signs: Last Vital Signs Pulse 72 04/26/25 11:10 BP 128/86 04/26/25 11:10 Pulse Ox 94 04/26/25 11:10 Oxygen Delivery Method Room Air 04/26/25 11:10 BMI result Body Mass Index 42.9 Const General: cooperative, comfortable and no acute distress Nutritional Appearance: obese Orientation/consciousness: patient oriented x3 HEENT Head: Yes normal to inspection Ears: hearing grossly normal bilaterally Face and sinus: Yes normal facial exam and Yes face symmetric Mouth: tongue normal Eyes Pupils: Equal, round and reactive pupils present, Pupils normal by confrontation and Pupil accommodation reflex normal Neck Neck: Yes normal visual inspection, Yes full ROM and Yes supple Resp Effort & Inspection: normal respiratory effort and able to speak in complete sentences Neuro Other: ambulates with a cane General: patient oriented x3 Cranial nerves: Yes CN's II-XII intact bilaterally, Yes Facial sensation intact/muscles of mastication intact, Yes Equal, round and reactive pupils present, Yes Normal facial strength present, Yes Midline tongue present, Yes Ability to bilaterally rotate head present and Yes Ability to bilaterally elevate shoulders present (difficulty with shoulder shrug) Gait exam (Neuro): Antalgic gait present (gait is off balance) Motor exam (neuro): Abnormal motor strength present (unable to lift with quads and push with triceps my hands to resistance) and Tremors during motor activity present (Mild tremor of the hands L>R) Psych Appearance: well kempt Affect: normal affect Attitude: cooperative Results Reviewed Results Reviewed: IMPRESSION: Mild asymmetric right mesial temporal lobe volume loss. Mild partially empty sella. Otherwise unremarkable brain. Assessment & Plan Assessment & Plan (1) Cognitive decline: Code(s): R41.89 - Other symptoms and signs involving cognitive functions and awareness Category: Medical (2) Migraine headache with aura: Code(s): G43.109 - Migraine with aura, not intractable, without status migrainosus Category: Medical Qualifiers: Status migrainosus presence: without status migrainosus Intractability: intractable Qualified Code(s): G43.119 - Migraine with aura, intractable, without status migrainosus (3) KATLYN on CPAP: Code(s): G47.33 - Obstructive sleep apnea (adult) (pediatric) Category: Medical (4) Recurrent mild major depressive disorder with anxiety: Code(s): F33.0 - Major depressive disorder, recurrent, mild; F41.9 - Anxiety disorder, unspecified Category: Medical (5) Chronic migraine with aura: Code(s): G43.E09 - Chronic migraine with aura, not intractable, without status migrainosus Category: Medical Qualifiers: Status migrainosus presence: without status migrainosus Intractability: intractable Qualified Code(s): G43.E19 - Chronic migraine with aura, intractable, without status migrainosus Plan Cognitive Decline MMSE 25/30, forgetful will send her for MRI to compare with the MRI completed in 07/2023 Migraine Protocol Continue Ubrelvy 50mg PO PRN Migraine with onset of migraine with aura, preventive for migraines. Continue with Aimovog Auto injector 140mg subcutaneously q monthly maintenance therapy for migraines. RF Sumatriptan Insomnia and Fragmented Sleep, may take melatonin 3-5mg PO at night. Sleep Compliance Report Request from Pulmonology Dr. Kay and or KAYE MRI? labs? EMG/NCS? ahsan Patient Instructions: Sleep Hygiene provided: set a scheduled bedtime and wake time to help regulate the circadian rhythm and balance the release of pituitary hormones. Sleep in a dark room, temperatures below 68 degrees, and no devices n bed. Limit caffeinated products 6 hours prior to bed, and limit fluids 2-4 hours prior to bed. Gentle night yoga, diffusing essential oils, and playing soft music can be relaxing. Coding Level of Care Code Est Pt Level 4 (19134) Diagnoses Cognitive decline R41.89 Intractable migraine with aura without status migrainosus G43.119 Status migrainosus presence: without status migrainosus Intractability: intractable KATLYN on CPAP G47.33 Recurrent mild major depressive disorder with anxiety F33.0; F41.9 Intractable chronic migraine with aura and without status migrainosus G43.E19 Status migrainosus presence: without status migrainosus Intractability: intractable
== END 2025-04-26 12:40 | disposition home or self-care (01) ==
LOC: HO.HSMS 11:01
PROVIDERS: Visit Provider Physician Assistant Medical
DX: R41.89 Other symptoms and signs involving cognitive functions and awareness (principal); G43.E19 Chronic migraine with aura, intractable, without status migrainosus; G47.33 Obstructive sleep apnea (adult) (pediatric); F33.0 Major depressive disorder, recurrent, mild; F41.9 Anxiety disorder, unspecified
CPT/HCPCS: 99214

== ENCOUNTER 2025-06-25 14:35 | Outpatient (AMB) | payer OTHER, MEDICARE, SELFPAY ==
--- OUTSIDE RECORDS SUMMARY | 2024-10-09 07:30 | XMS_ITS ---
Author Organization [facility] Address [address] [facility] [address] [place] [address] Care Team Providers Care Candles Pourer Name Role Phone Gunjan TOBIN, Cici Primary Care Provid er Unavailable Dayanara Fields Unavailable [phone] Sis Yo Unavailab le Encounters Encounter Location Date Provider Diagnosis [facility] [address] [facility] [address] [place] [address] 10/09/2024 Dayanara Fields Plan Of Treatment No Information Progress Notes * Juan STYLESOB:1965 (60 yo F)Acc No.[id number]:10/09/2024 Follow-Up Visit Patient: July MEREDITH Provider: David Fields NP :1965 A ge:59 Y S ex:Female Date:10/09/2024 Address:[address] [place], [place] [id number] Pcp:Cici Hollins MD Subjective: * Chief Complaints: * * Medical History: Objective: * Vitals: Assessment: Plan: * Treatment: * Billing Information: * Visit Code: * Procedure Codes: * Electronic signature of Lokesh Fields NP on 06/25/2025 at 07:40 PM EDT Sign off status: Pending * Provider: David Fields NP Date: 0 10/09/2024 Generated for Gonzálezi ng/Facarolg/eTransmitting on: 1 07:40 PM EDT
--- OUTSIDE RECORDS SUMMARY | 2024-10-11 07:30 | XMS_ITS ---
Author Organization [facility] Address [address] [facility] [address] [place] [address] Care Team Providers Care Ditching Machine Operator Name Role Phone Gunjan TOBIN, Cici Primary Care Provid er Unavailable Dayanara Fields Unavailable [phone] Sis Yo Unavailab le Encounters Encounter Location Date Provider Diagnosis [facility] [address] [facility] [address] [place] [address] 10/11/2024 Dayanara Fields Plan Of Treatment No Information Progress Notes * Juan STYLESOB:1965 (60 yo F)Acc No.[id number]:10/11/2024 Follow-Up Visit Patient: July MEREDITH Provider: David Fields NP :1965 A ge:59 Y S ex:Female Date:10/11/2024 Address:[address] [place], [place] [id number] Pcp:Cici Hollins MD Subjective: * Chief Complaints: * * Medical History: Objective: * Vitals: Assessment: Plan: * Treatment: * Billing Information: * Visit Code: * Procedure Codes: * Electronic signature of Lokesh Fields NP on 06/25/2025 at 07:41 PM EDT Sign off status: Pending * Provider: David Fields NP Date: 0 10/11/2024 Generated for Gonzálezi ng/Facarolg/eTransmitting on: 1 07:41 PM EDT
--- OUTSIDE RECORDS SUMMARY | 2024-10-22 07:30 | XMS_ITS ---
Author Organization [facility] Address [address] [facility] [address] [place] [address] Care Team Providers Care Clinical Review Nurse Name Role Phone Gunjan TOBIN, Cici Primary Care Provid er Unavailable Dayanara Fields Unavailable [phone] Sis Yo Unavailab le Encounters Encounter Location Date Provider Diagnosis [facility] [address] [facility] [address] [place] [address] 10/22/2024 Dayanara Fields Plan Of Treatment No Information Progress Notes * Angeles STYLESyDOB:1965 (60 yo F)Acc No.[id number]:10/22/2024 Follow-Up Visit Patient: July MREEDITH Provider: David Fields NP :1965 A ge:59 Y S ex:Female Date:10/22/2024 Address:[address] [place], [place] [phone] Pcp:Cici Hollins MD Subjective: * Chief Complaints: * * Medical History: Objective: * Vitals: Assessment: Plan: * Treatment: * Billing Information: * Visit Code: * Procedure Codes: * Electronic signature of Lokesh Fields NP on 06/25/2025 at 07:39 PM EDT Sign off status: Pending * Provider: David Fields NP Date: 0 10/22/2024 Generated for Gonzálezi ng/Facarolg/eTransmitting on: 1 07:39 PM EDT
--- NOTE | 2025-06-25 14:39 | A.OFFVIS_ITS ---
Vital Signs 06/25/25 14:40 Height 5 ft 3 in Weight 229 lb 4 oz BMI 40.6 BP 128/82 Blood Pressure Location Rt brachial Position Sitting Pulse 72 Pulse Source Pulse Oximeter Pulse Oximetry (%) 97 Oxygen Delivery Method Room Air Intake Visit Reasons: Follow up, worsening symptoms Intake Note: Follow up Cognitive decline, Migraine, KATLYN on CPAP, Depressive disorder with anxiety Grocery Shopper Required: No Accompanied by: Spouse Allergies bee venom protein (honey bee) Allergy (Unknown, Verified 06/25/25 14:39) Swelling chantix Allergy (Mild, Uncoded 07/10/24 10:58) behavior Wellbutrin Adverse Reaction (Unknown, Uncoded 07/10/24 10:57) Hives Medication List - Last Reconciled 06/25/25 by Christy Mcconnell MD albuterol sulfate 90 mcg/actuation 2 puffs inhalation Q6H PRN alprazolam 1 mg PO TID azelastine 2 sprays intranasal BID buspirone 10 mg PO BID cyclobenzaprine 10 mg PO TID diphenoxylate-atropine 2.5-0.025 mg 1 tab PO TID erenumab-aooe (Aimovig Autoinjector) 140 mg subcut .q monthly estradiol 0.01%(0.1mg/gram) 1 g vaginal 2XW fluticasone propion-salmeterol 500-50 mcg/dose (Advair Diskus) 1 inh inhalation BID gabapentin 800 mg PO TID ipratropium bromide 2 sprays intranasal BID naproxen 500 mg PO BID nicotine 1 patch transdermal DAILY omeprazole 40 mg PO DAILY ondansetron 8 mg PO Q12H oxcarbazepine 600 mg PO BID prazosin 3 - 4 mg PO BEDTIME rosuvastatin 40 mg PO DAILY solifenacin 5 mg PO DAILY sumatriptan succinate 6 mg (0.5 mL) subcut ONCE PRN 30 days trazodone 200 - 400 mg PO BEDTIME PRN ubrogepant (Ubrelvy) 50 mg PO ONCE PRN MDD 100mg valsartan 320 mg PO DAILY venlafaxine ER 150 mg PO BID verapamil ER 120 mg PO BEDTIME HPI Comments Details: 59 year old female presents for f/u of cognitive difficulty,Tardive Dyskinesia like abnormal movements of the face and Chronic Migraines The tardive movements are mild and does not bother her. Memory is worse.she cannot retain any new info Her is very concerned about - tangentiality , falls asleep with oven on etc. 07/2023 MRI reviewed with patient. She has KATLYN and is on CPAP 10-16 Compliance 97% Usage hrs 6 hrs AHI 2.6 Her mood is worse- snappy irritable Migraines are well controlled- 1/week History from last visit- 03/2025 Today she c/o cognitive deficits due to trauma as a teenager. states he notices she is forgetting events, day trips, if prompted she will recall, and is very confused with episodes of loss of time. She forgets to turn off the stove and mixes, or repeats words. Her STM and LTM has progressed and if tasks are not recorded on her phone she will forget them. She has MDD with anxiety, alpraolam TID, cyclobenzaprine for lower back pain chronic, Gabapentin 800mg po TID. She will stop seeing Dr. Powers, for PTSD start her therapist Yumiko Jones at the [facility]. She has chronic migraines were controlled with Amigov 140mg once injected then ubrelvy 50mg po has 10 pills and will take it as needed. >15 headache days a m onth and does not want to change the routine at this time. Imitrex tablets, 2x a 100mg, and will take another one week manages her headaches and prevents them from developing into migraines. She still wakes up with migraines 4-5x a week and they can last for days. Imitrex injections are effective with onset of migraine, preventive is Aimovig.Migraines are 10/10 painful, debilitating, with phonophobia/ photophobia/ with floater and blurry vision smells has nausea, vomiting, vertigo as if she is spinning internally and balance difficulties. last fall was 3 days fell, back hurts, slipped on surface stiven Toney is concerned about tremors, nueropathy, parasthesias in bilateral legs worse at night, feet and hands, EMG and NCS requested from [place]. She is staying active, drinks water daily 16.9 (4), Knees hurt when she walks, she does not have the ability to go to the pool. Sleeping through the night and gets up at 3:30am, [facility], [facility] Medical History (Updated 06/25/25 @ 15:14 by Christy Mcconnell MD) Gait difficulty Cognitive deficit due to 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 Post traumatic stress disorder Alcohol abuse, in remission Kidney stone Osteoarthritis, knee Migraine headache Fibromyalgia Depression with anxiety Hypercholesteremia Benign hypertension Hot flashes Gastro-esophageal reflux disease without esophagitis Mild obstructive sleep apnea Morbid obesity Vitamin D deficiency Polyneuropathy, unspecified Surgical History History of lithotripsy History of eye surgery Family History Mother Hypertension Alcohol abuse Father Bypass graft mechanical complication Social History Patient Tobacco Use Status: Current everyday Tobacco user Cigarette Packs Per Day: 0.25 Physical Exam Vital Signs: Last Vital Signs Pulse 72 06/25/25 14:40 BP 128/82 06/25/25 14:40 Pulse Ox 97 06/25/25 14:40 Oxygen Delivery Method Room Air 06/25/25 14:40 BMI result Body Mass Index 40.6 Const General: cooperative, comfortable and no acute distress Nutritional Appearance: obese Orientation/consciousness: patient oriented x3 HEENT Head: Yes normal to inspection Ears: hearing grossly normal bilaterally Face and sinus: Yes normal facial exam and Yes face symmetric Mouth: tongue normal Eyes Pupils: Equal, round and reactive pupils present, Pupils normal by confrontation and Pupil accommodation reflex normal Neck Neck: Yes normal visual inspection, Yes full ROM and Yes supple Resp Effort & Inspection: normal respiratory effort and able to speak in complete sentences Neuro Other: ambulates with a cane General: patient oriented x3 Cranial nerves: Yes CN's II-XII intact bilaterally, Yes Facial sensation intact/muscles of mastication intact, Yes Equal, round and reactive pupils present, Yes Normal facial strength present, Yes Midline tongue present, Yes Ability to bilaterally rotate head present and Yes Ability to bilaterally elevate shoulders present (difficulty with shoulder shrug) Gait exam (Neuro): Antalgic gait present (gait is off balance) Motor exam (neuro): Abnormal motor strength present (unable to lift with quads and push with triceps my hands to resistance) and Tremors during motor activity present (Mild tremor of the hands L>R) Psych Appearance: well kempt Affect: normal affect Attitude: cooperative Assessment & Plan Assessment & Plan (1) Cognitive decline: Comment: multifactorial cognitive disorder Code(s): R41.89 - Other symptoms and signs involving cognitive functions and awareness Category: Medical (2) Migraine headache with aura: Code(s): G43.109 - Migraine with aura, not intractable, without status migrainosus Category: Medical Qualifiers: Intractability: intractable Status migrainosus presence: without status migrainosus Qualified Code(s): G43.119 - Migraine with aura, intractable, without status migrainosus (3) KATLYN on CPAP: Code(s): G47.33 - Obstructive sleep apnea (adult) (pediatric) Category: Medical (4) Recurrent mild major depressive disorder with anxiety: Code(s): F33.0 - Major depressive disorder, recurrent, mild; F41.9 - Anxiety disorder, unspecified Category: Medical (5) Chronic migraine with aura: Code(s): G43.E09 - Chronic migraine with aura, not intractable, without status migrainosus Category: Medical Plan Migraine Protocol Continue Ubrelvy 50mg PO PRN Migraine with onset of migraine with aura, preventive for migraines. Continue with Aimovog Auto injector 140mg subcutaneously q monthly maintenance therapy for migraines. RF Sumatriptan Insomnia and Fragmented Sleep, may take melatonin 3-5mg PO at night. Sleep Compliance reviewed I will trial her on memantine XR 7 mg qd VNA ref Orders: [facility]errals [facility] Referral R41.89 - Other symptoms and signs involving cognitive functions and awareness, R26.9 - Unspecified abnormalities of gait and mobility Medications: New memantine 7 mg PO DAILY 30 ea 0RF Coding Level of Care Code Est Pt Level 4 (18511) Complex EM visit Add On G2211 Diagnoses Cognitive decline R41.89 Intractable migraine with aura without status migrainosus G43.119 Intractability: intractable Status migrainosus presence: without status migrainosus KATLYN on CPAP G47.33 Recurrent mild major depressive disorder with anxiety F33.0; F41.9 Chronic migraine with aura G43.E09
[2025-06-25 14:40] VITALS: BP 128/82; PULSE 72; O2SAT 97; BMI 40.6
--- OUTSIDE RECORDS SUMMARY | 2025-06-25 19:39 | XMS_ITS | Clinical Summary ---
Author Organization [facility] Address [address] [place] [address] Care Team Providers Care Build Technician Name Role Phone Unavailable Primary Care Provider Unavailabl e Active Problems Problem Noted Date Diagnosed Date AMNA (stress urinary incontinence, female) 2022 Overview: Added automatically from request for surgery [id number] Overactive bladder 04/21/2023 Overview: Added automatically from request for surgery [id number] IUD threads lost 04/21/2023 Overview: Added automatically from request for surgery [id number] Social History Tobacco Use Types Packs/Day Years [...]
--- OUTSIDE RECORDS SUMMARY | 2025-06-25 19:40 | XMS_ITS | Encounter Summary ---
Author Organization [facility] Address [address] [place] [address] Care Team Providers Care Religious Assistant Name Role Phone Brooke Osorio MD Primary Care Prov ider Encounter Details Date Type Department Care Team ([facility] st Contact Info) Description 06/24/2025 Telephone Orthopedic Surgery [facility] [address] [address] Vega Correa MD 175 [place] [address] Social History Tobacco Use Types Packs/Day Years [...] care for your loved ones. For example, director maternal child or elderly care for an older adult? [...] Date Recorded What is your living situation? Unrecognized valu e 04/04/2025 Interpersonal Safety Answer Date Record ed Physical Abuse Unrecognized value 08/31/2024 Verbal Abuse Unrecognized value 08/31/2024 Comments No Sex and Gender Information Value Date Recorded Sex Assigned at Female 06/19/2025 2:57 PM EDT Legal Sex Female 3:45 PM EST Gender Identity Female 06/19/2025 2:57 PM EDT Sexual Orientation Straight 06/19/2025 2: 57 PM EDT documented as of this encounter Progress Notes * Ailyn Smith - 06/24/2025 12:24 PM EDT Pt had cortisone injection last week with no relief. She is in a lot of pain and is asking if a script can be sent to the pharmacy. Please reach out to discuss [phone] documented in this encounter Plan of Treatment Upcoming Encounters Date Type Department Care Team (Late st Contact Info) Description 06/26/2025 10:30 AM EDT Office Visit Adult Medicine - [place] [address] [place] [address] Brooke Osorio MD [address] [place] [address] 07/01/2025 11:00 AM EDT [facility] 175 [facility] [address] [place] [phone] Bk Gillette OT 07/25/2025 1:00 PM EST Office Visit Orthopedic Surgery - [place] 175 [facility] [address] [place] [phone] Thelma Giles PA 175 [place] [address] 08/12/2025 11:15 AM EST Office Visit Adult Medicine - [place] [address] [place] [address] Joesph Perez PA [address] [place] [address] 10/17/2025 3:00 PM EST Consult Nephrology [facility] [address] [place] [address] Nickolas Wright MD [address] [phone] documented as of this encounter Visit Diagnoses Not on filedocumented in this encounter Additional Health Concerns Assessment Noted Time PHQ-9 Depression Total Score: 1 04/03/20 10:48 AM EDT documented as of this encounter Care Teams Religious Assistant Relationship Specialty Start Date End Date Brooke Osorio MD [address] [place] [address] PCP - General Internal Medicine 07/10/24 documented as of this encounter
--- OUTSIDE RECORDS SUMMARY | 2025-06-25 19:40 | XMS_ITS | Encounter Summary ---
Author Organization [facility] Address [address] [place] [address] Care Team Providers Care Oracle Apex Developer Name Role Phone Brooke Osorio MD Primary Care Prov ider Reason for Visit * Reason Onset Date Comments Cough 06/24/2025 Encounter Details Date Type Department Care Team ([facility] st Contact Info) Description 06/24/2025 Telephone Adult Medicine - [place] [address] [place] [phone] Brooke Osorio MD [address] [place] [address] Social History Tobacco Use Types Packs/Day Years [...] care for your loved ones. For example, early childhood educator aide or elderly care for an older adult? [...] as of this encounter Progress Notes * Amarilys Trejo RN - 06/24/2025 2:25 PM EDT noted -appt with PCP made (as preferred) * Brooke Osorio MD - 06/24/2025 12:16 PM EDT She really needs to make an appointment * Amarilys Trejo RN - 06/24/2025 10:17 AM EDT spoke to pt at length- reports of two concerns; first- of congested cough (greenish phlegm) x few days with scratchy throat. denies any SOB/wheezing/fever/gen malaise. she has tried otc cough medcn (with phenylephrine) with no relief-advised to avoid it when taking valsartan . advised to try freq.saltwater gargles/cough drops and more chicken soups/broth and tea with honey/lemon. pt also reports of needing flexeril and tramadol for ongoing L shoulder pain;recently seen by ortho.on 06/19/25-advised to call the office for advice. MATEO 06/11/25 pt refused o.v/u.c. visit due to transpo.and will call u.c ( provided tel no) or go to other u.c. of preference. * Dominga Montana - 06/24/2025 9:47 AM EDT Patient calling back. If she can't be fit in with Joesph that she would like her flexeril and tramadol called in due to excrutiating shoulder pain. [phone] * Dominga Montana - 06/24/2025 8:39 AM EDT Patient call requires triage: Symptoms patient is presenting: cough with phlegm, sore throat, and shoulder pain How long has patient had these symptoms?: since the weekend For ALL patients calling to schedule any appointment (routine, sick visit, follow up, consult, etc.) in the outpatient setting please ask the following questions: Do you have fever of higher than 101, sore throat with difficulty swallowing or severe shortness ofbreath? yes If YES to any of these above symptoms, send a message to triage and do not book. Red dot. If no, an audio or video visit should be booked. Have you had close contact with someone with Coronavirus in the last 14 days? no Have you traveled abroad? no Have you traveled recently to another state outside of [place], [place], [place], [place], [place], [place], [place]? no o If yes, did you quarantine [...] of accident/Injury: No If yes, gather 3rd libertarian insurance information Third Republican Information: not applicable PCP: Brooke Osorio MD Payor: [employer] / Plan: [employer] PPO / Product Type: *No Product type* / documented in this encounter Plan of Treatment Upcoming Encounters Date Type Department Care Team (Late st Contact Info) Description 06/26/2025 10:30 AM EDT Office Visit Adult Medicine [address] [address] Brooke Osorio MD [address] [place] [address] 07/01/2025 11:00 AM EDT Evaluation [facility] 175 [facility] [address] [place] [phone] Bk [place] OT 07/25/2025 1:00 PM EST Office Visit Orthopedic Surgery - [place] 175 [facility] [address] [place] [phone] Thelma Giles PA 175 [place] [address] 08/12/2025 11:15 AM EST Office Visit Adult Medicine [address] [place] [address] Joesph Perez PA [address] [place] [address] 10/17/2025 3:00 PM EST Consult Nephrology - [facility] [address] [place] [address] Nickolas Wright MD [address] [phone] documented as of this encounter Visit Diagnoses Not on filedocumented in this encounter Additional Health Concerns Assessment Noted Time PHQ-9 Depression Total Score: 1 04/03/20 25 10:48 AM EDT documented as of this encounter Care Teams Oracle Apex Developer Relationship Specialty Start Date End Date Brooke Osorio MD [address] [place] [address] PCP - General Internal Medicine 07/10/24 documented as of this encounter
--- OUTSIDE RECORDS SUMMARY | 2025-06-25 19:40 | XMS_ITS | Patient Health Record ---
Author Organization [facility] Address [address] [address] Care Team Providers Care Assistant Tennis Coach Name Role Phone Gunjan TOBIN, Cici Primary Care Provid er Unavailable Dayanara Fields Unavailable [phone] Sis Yo Unavailable Unavailab Eduardo Yang Unavailable [phone] Allergies Allergen (clinical drug ingredient) Drug/Non Drug [...] Status Risk Notes Problem Psychoactive substance dependence (9291676) Other psychoactive substance dependence, uncomplicated (F19.20) Active confirmed Problem Essential hypertension (48383803) Essential (primary) hypertension (I10) Active confirmed Problem Pressure injury of right buttock stage III (disorder) (34706731709648) Pressure ulcer of right buttock, stage 3 (L89.313) Active confirmed Problem Chronic ulcer of buttock (113878170) Non-pressure chronic ulcer of buttock with fat layer exposed (L98.412) Active confirmed Problem Fibromyalgia (925674830) Fibromyalgia (M79.7) Active confirmed Problem Cognitive communication disorder (033766002) Cognitive communication deficit (R41.841) Active confirmed Problem Posttraumatic stress disorder (23584855) PTSD (post-traumatic stress disorder) (F43.10) Active confirmed Problem Obstructive sleep apnea (70622325) Obstructive sleep apnea (G47.33) Active confirmed Problem Inflammatory and toxic neuropathy (699577167) Peripheral polyneuropathy (G62.9) Active confirmed Problem Hypercholesterolemia (25956165) Hypercholesterolemia (E78.00) Active confirmed Problem Gastroesophageal reflux disease (778034270) GERD (gastroesophageal reflux disease) (K21.9) Active confirmed Problem Alcohol abuse (49309355) Alcohol abuse (F10.10) Active confirmed Problem Osteoarthritis (435260403) Osteoarthritis (M19.90) Active confirmed Problem Kidney stone (47300185) Kidney stones (N20.0) Active confirmed Problem Migraine (47005340) Migraine (G43.909) Active c onfirmed Vital Signs [...] 11/08/2024 Encounters Encounter Location Date Provider Diagnosis [facility] [address] [address] 09/11/2024 Jooyun Fields Pressure ulcer of ri ght buttock, stage 3 L89.313 ; Essential (primary) hypertension I10 and Peripheral polyneuropathy G62.9 [place] [address] [address] 09/18/2024 Jooyun Fields Pressure ulcer of ri ght buttock, stage 3 L89.313 ; Essential (primary) hypertension I10 and Peripheral polyneuropathy G62.9 [facility] [address] [address] 09/25/2024 Jooyun Fields Pressure ulcer of ri ght buttock, stage 3 L89.313 ; Essential (primary) hypertension I10 and Peripheral polyneuropathy G62.9 [facility] [address] [address] 10/02/2024 Jooyun Fields Pressure ulcer of ri ght buttock, stage 3 L89.313 ; Essential (primary) hypertension I10 and Peripheral polyneuropathy G62.9 [facility] [address] [address] 10/16/2024 Dayanara Fields Pressure ulcer of ri ght buttock, stage 3 L89.313 ; Essential (primary) hypertension I10 and Peripheral polyneuropathy G62.9 [facility] [address] [address] 10/25/2024 Eduardo Gill Pressure ulcer of ri ght buttock, stage 3 L89.313 ; Essential (primary) hypertension I10 and Peripheral polyneuropathy G62.9 [facility] [address] [address] 11/01/2024 Eduardo Gill Pressure ulcer of ri ght buttock, stage 3 L89.313 ; Essential (primary) hypertension I10 and Peripheral polyneuropathy G62.9 [facility] [address] [address] 11/08/2024 Eduardo Gill Pressure ulcer of ri ght buttock, stage 3 L89.313 ; Essential (primary) hypertension I10 and Peripheral polyneuropathy G62.9 [facility] [address] [address] 09/07/2024 [facility] [address] [address] 09/11/2024 Dayanara Fields [facility] [address] [address] 10/30/2024 Eduardo Gill Assessments Encounter Date Diagnosis [...] with weekly visits I, Eduardo Gill, MSN, HIGH SPEED PRINTER OPERATOR, BILLING COLLECTIONS SPECIALIST-C, examined, evaluated, and treated the patient. Dr. [...] with weekly visits I, Eduardo Gill, MSN, HIGH SPEED PRINTER OPERATOR, BILLING COLLECTIONS SPECIALIST-C, examined, evaluated, and treated the patient. Dr. Diana Messina was available for any questions or concerns that I may have had. I, Ernie Messina MD confirm that Eduardo Gill, MSN, HIGH SPEED PRINTER OPERATOR, BILLING COLLECTIONS SPECIALIST-C understands and adheres to the guidelines of [...] the findings in the note. IEduardo, MSN, HIGH SPEED PRINTER OPERATOR, BILLING COLLECTIONS SPECIALIST-C, examined, evaluated , and treated the patient. Dr. Diana Messina was available for any questions or concerns that I may have had. Plan Of Treatment No Information Insurance Providers Payer Name Payer Address Payer Phone Subscriber Number Group Number Insured Name Patient Relationship to Insured Coverage Start Date Coverage End Date Lisa [address] [place], [place] [id number] Olegario Molina Spouse - patient is the [...]
--- OUTSIDE RECORDS SUMMARY | 2025-06-25 19:41 | XMS_ITS | Clinical Summary ---
Author Organization [facility] 230 [facility] Address [address] [place] [address] Phone Care Team Providers Care Music Arranger Name Role Phone Brooke Osorio MD Primary [...] DAY NEEDED FOR WHEEZING/SHOR TNESS OF BREATH 06/27/20 22 Active ALPRAZolam (XANAX) 1 mg tablet TAKE 1 TABLET BY MOUTH 3 TIMES A DAY NEEDED FOR SLEEP 05/29/20 18 Active busPIRone (BUSPAR) 10 mg tablet TAKE 1/2 TABLET BY MOUTH TWICE A DAY FOR 1 WEEK THEN TAKE 1 TAB TWICE A DAY THEREAFTER 07/14/20 22 Active fluticasone propion-salmetero L (Advair Diskus) 500-50 mcg/dose diskus inhaler INHALE 1 PUFF BY MOUTH 2 TIMES A DAY 05/14/20 22 Active ipratropium (ATROVENT) 21 mcg (0.03 %) nasal spray INSTILL 2 SPRAYS INTO BOTH NARES DAILY AT BEDTIME FOR 30 DAYS 06/28/20 22 Active traZODone (DESYREL) 300 mg tablet Take 400 mg by mouth at bedtime. Active venlafaxine XR (EFFEXOR-XR) 150 mg 24 hr capsule Take 1 Cap by mouth 2 times daily for 360 days. 12/21/19 18 Active azelastine (ASTELIN) 137 mcg (0.1 %) nasal spray 2 Sprays by Each Nare route 2 times daily. Use in each nostril as directed 02/17/20 24 Active fluticasone-umecl idinium-vilantero l (TRELEGY ELLIPTA) 100-62.5-25 mcg inhaler Inhale by mouth. 06/07/20 24 Active SUMAtriptan (IMITREX) 6 mg/0.5 mL subcutaneous solution pen PLEASE SEE ATTACHED FOR DETAILED DIRECTIONS 08/12/20 24 Active hydrocolloid dressing 4 X 5 bandage Apply to wound every 3 days 1 each 1 09/04/20 24 Active diphenoxylate-atr opine (LOMOTIL) 2.5-0.025 mg per tablet TAKE 1 TABLET BY MOUTH IF NEEDED FOR DIARRHEA. 30 tablet 3 10/01/19 25 Active Aimovig Autoinjector 140 mg/mL injection Inject 1 mL (140 mg total) under the skin. 09/06/19 25 Active rosuvastatin (CRESTOR) 40 mg tablet TAKE 1 TABLET BY MOUTH EVERY DAY 90 tablet 1 02/14/20 25 Active verapamil ER (VERELAN) 120 mg 24 hr capsule TAKE 1 CAPSULE (120 MG TOTAL) BY MOUTH AT BEDTIME. 90 capsule 1 02/16/20 25 Active naproxen (NAPROSYN) 500 mg tablet TAKE 1 TABLET BY MOUTH TWICE A DAY WITH FOOD 180 tablet 1 03/05/20 25 Active omeprazole (PriLOSEC) [address] capsule Take 1 capsule (40 mg total) by mouth 1 (one) time each day. 90 capsule 1 04/05/20 25 Active indapamide (LOZOL) 1.25 mg tablet TAKE 1 TABLET (1.25 MG TOTAL) BY MOUTH 1 (ONE) TIME EACH DAY IN THE MORNING. 90 tablet 1 04/16/20 25 2025 Active valsartan (DIOVAN) 320 mg tablet TAKE 1 TABLET BY MOUTH 1 TIME EACH DAY. 90 tablet 1 04/17/20 25 Active ondansetron ODT (ZOFRAN-ODT) 8 mg disintegrating tablet TAKE 1 TABLET BY MOUTH DAILY NEEDED FOR NAUSEA. 15 tablet 05/09/20 Active gabapentin (NEURONTIN) 800 mg tablet TAKE 1 TABLET BY MOUTH 3 TIMES A DAY 270 tablet 1 05/10/20 25 Active cyclobenzaprine (FLEXERIL) 10 mg tablet Take 1 tablet (10 mg total) by mouth 3 (three) times a day if needed for muscle spasms. 30 tablet 06/11/20 25 2024 Active cyclobenzaprine (FLEXERIL) 10 mg tablet TAKE 1 TABLET BY MOUTH 3 TIMES A DAY IF NEEDED FOR MUSCLE SPASMS. 30 tablet 05/09/20 25 2024 Discontinued traMADoL (ULTRAM) 50 mg tablet Take 1 tablet (50 mg total) by mouth every 6 (six) hours if needed for severe pain for up to 5 days. Max Daily Amount: 200 mg 15 tablet 06/11/20 25 2024 Hospital, Clinic, or Other Facility Administered Medication Ordered Dose Route Frequency Start Date End Date Status triamcinolone acetonide (KENALOG-40) 40 mg/mL injection 40 mgIndications:Trauma tic tear of left rotator cuff, unspecified tear extent, initial encounter 40 mg Once PRN Procedure 06/19/2025 06/19/2025 Ended Active Problems Problem Noted Date Diagnosed Date Concentric left ventricular hypertrophy 04/19/20 Medical marijuana use 04/10/2025 Memory loss 01/16/2025 Prediabetes 09/05/2024 Polysubstance dependence ([facility] V24, [facility] V 28) 06/22/2024 Nephrolithiasis 06/22/2024 Panic disorder 06/22/2024 IUD threads lost 04/21/2023 Overview (06/14/2024): Added automatically from request for surgery [id number] Overactive bladder 04/21/2023 Overview (06/14/2024): Added automatically from request for surgery [id number] AMNA (stress urinary incontinence, female) 2022 Overview (06/14/2024): Added automatically from request for surgery [id number] Peripheral polyneuropathy 08/26/2021 Vitamin D deficiency 08/26/2021 Morbid obesity ([facility] V24, [facility] V28) 2019 GERD (gastroesophageal reflux disease) 8 KATLYN (obstructive sleep apnea) 01/14/2018 Overview (06/14/2024): No diagnostic study on file.? 08/06/2021 [facility] Polysomnogram PAP treatment study. [...] 10/04/2017 Overview (06/14/2024): Psychologist, Dr Gwen Torres, [facility] PTSD (post-traumatic stress disorder) 10/04/2017 Fibromyalgia 10/04/2017 Overview (06/14/2024): historic Pt tried and failed Gabapentin 300mg prescribed by previous PCP Hypercholesteremia 10/04/2017 Hypertension 10/04/2017 Kidney stones 10/04/2017 Migraine headache 10/04/2017 Overview (06/14/2024): Sees Dr Valverde Osteoarthritis, knee 10/04/2017 Encounters Date Type Department Care Team Description 06/24/2025 Telephone Orthopedic Surgery - [place] [address] [phone] Vega Correa MD 06/24/2025 Telephone Adult Medicine - [place] [address] [place] [address] Brooke Sun MD 06/19/2025 11:30 AM EDT Consult Orthopedic Surgery - [place] [address] [place] [address] Vega Correa MD Left shoulder pain (Primary Dx); Traumatic tear of left rotator cuff, unspecified tear extent, initial encounter 06/11/2025 3:15 PM EDT Office Visit [address] [phone] Joesph Perez PA Memory loss (Primary Dx); Early onset Alzheimer's dementia, unspecified dementia severity, unspecified whether behavioral, psychotic, or mood disturbance or anxiety (CMS/HCC V24, CMS/HCC V28); 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 [address] [facility] [address] [place] [phone] Hypertension, unspecified type; Cardiac murmur 04/10/2025 11:15 AM EDT Office Visit [facility] [address] [place] [phone] Joesph Perez PA Hypertension, unspecified type (Primary Dx); Morbid obesity (CMS/HCC V24, CMS/HCC V28); KATLYN (obstructive sleep apnea); Peripheral polyneuropathy; Medical marijuana use 04/10/2025 Telephone Adult [facility] [address] [place] [phone] Joesph Perez PA from Last 3 Months Immunizations Immunization Administration Dates Next Due Influenza Quadrivalent, 0.5m [...] BX BREAST; PERC NEEDLE CORE W/IMAG GUID CARPAL TUNNEL RELEASE Left Medical History Medical History Date Comments KATLYN (obstructive sleep apnea) 01/14/2018 DX :KATLYN (obstructive sleep apnea) GERD (gastroesophageal reflux disease) 01/14/2018 DX:GERD (gastroesophageal reflux disease) Overactive bladder AMNA (stress urinary incontin ence, female) Peripheral neuropathy Vitamin D deficiency Morbid obesity ([facility] V24, CMS/[facility] V28) Alcohol abuse IN [place] Depression Anxiety [...] for your loved ones. For example, child development specialist or elderly care for an older adult? [...] Orientation Straight 06/19/2025 2: 57 PM EDT Obstetrics History Last Filed Vital Signs Vital Sign Reading Time Taken Comments Blood Pressure 97/65 06/11/2025 3:27 PM EDT Pulse 81 06/11/2025 3:27 PM EDT Temperature 36.7 C (98 F) 06/11/2025 3:27 PM EDT Respiratory Rate 16 08/31/2024 1:53 PM EST Oxygen Saturation 97% 08/31/2024 1:53 PM EST Inhaled Oxygen Concentration - - Weight 99.8 kg (220 lb) 06/19/2025 12:10 PM EDT Height 157.5 cm (5' 2 ) 06/19/2025 12:10 PM EDT Body Mass Index 40.24 06/19/2025 12:10 PM EDT Plan of Treatment Upcoming Encounters Date Type Department Care Team (Late st Contact Info) Description 06/26/2025 10:30 AM EDT Office Visit Adult Medicine [facility] [address] [place] [phone] Brooke Osorio MD [address] [place] [address] 07/01/2025 11:00 AM EDT Evaluation [facility] 175 [facility] [address] [place] [phone] Bk [place] OT 07/25/2025 1:00 PM EST Office Visit Orthopedic Surgery [facility] 175 [facility] [address] [place] [phone] Thelma Giles PA [address] [place] [address] 08/12/2025 11:15 AM EST Office Visit Adult Medicine [facility] [address] [place] [phone] Joesph Perez PA [address] [place] [address] 10/17/2025 3:00 PM EST Consult Nephrology [address] [phone] Nickolas Wright MD [address] [facility] [address] [place] [phone] Health Maintenance Due Date Last Done Comments DTaP,Tdap,and Td Vaccines (1 - Tdap) 1986 Hepatitis A Vaccines (1 of 2 - Risk 2-dose series) 1986 Hepatitis B Vaccines (1 of 3 - 19+ 3-dose series) 1986 Pneumococcal Vaccine: 50+ Years (1 of 2 - PCV) 1986 Cervical Cancer Screening: P ap Smear 1988 RSV Immunization Adult Patients (1 - Risk 50-74 years 1-dose series) 2017 Zoster Vaccines (1 of 2) 2017 HIV Screening 08/14/2022 Hepatitis C Screening 08/14/2022 COVID-19 Vaccine (3 - 2024-2 6 season) 2025 01/01/2021, 12/04/2020 Influenza Vaccine (#1) 2025 8, [...] Procedure Name Priority Date/Time Associated Diagnosis Comments XR SHOULDER 2+ VIEWS LEFT Routine 06/19/2025 12:08 PM EDT Left shoulder pain MI ARTHROCENTESIS/ASPIRAT ION/INJECTION MAJOR JOINT/BURSA W/O U/S GUIDANCE Routine 06/19/2025 11:30 AM EDT Traumatic tear of left rotator cuff, unspecified tear extent, initial encounter TRANSTHORACIC ECHOCARDIOGRAM (TTE) COMPLETE Routine 04/19/2025 7:42 AM EDT Hypertension, unspecified type Cardiac murmur BASIC METABOLIC PANEL Routine 09/04/2024 2:43 PM [...] Recently Relevant to Health Maintenance Results * XR Shoulder 2+ Views Left (06/19/2025 12:08 PM EDT) Anatomical Region Laterality Modality Upper Extremities, Shoulder Left Comp uted Radiography Narrative 06/19/2025 12:14 PM EDT 4 view x-rays of the left shoulder show mild degenerative changes at the acromioclavicular joint. The glenohumeral joint space shows no significant narrowing or signs of degenerative changes. No evidence of acute fracture or dislocation. Soft tissue shadows appear normal. Impression: Mild degenerative changes of the acromioclavicular joint, otherwise no acute osseous abnormalities. us Vega Correa MD IMG XR PROCEDURES Final Result * MI ARTHROCENTESIS/ASPIRATION/INJECTION MAJOR JOINT/BURSA W/O U/S GUIDANCE (06/19/2025 11:30 AM EDT) Vega Elizalde MD - 06/19/2025 11:30 AM EDT Vega Correa MD 06/19/2025 3:06 PM L Inj/Asp: L subacromial bursa Indications: pain Details: 22 G needle, posterior approach Medications: 40 mg triamcinolone acetonide 40 mg/mL Outcome: tolerated well, no immediate complications Site was prepped in standard fashion using alcohol swab, sterile technique was used to perform the injection, the patient tolerated the procedure well and a band-aid dressing was applied Informed Consent: Site: Left subacromial Laterality: Left Relevant images/test results available and reviewed: yes Health status cleared: Yes Procedure/treatment, purpose, treatment alternatives, risks/potential complications and benefits explained: yes Risk/complications/benefits details: Risk/complications/benefits details: Risks and benefits of corticosteroid injection were discussed, including risk of pain, bleeding, infection, tissue attenuation, tendon rupture, changes in skin color, and injury to surrounding structures such as arteries, veins and nerves. We also discussed the patient may develop worsening pain for a few days before having improvement in their symptoms. Patient questions answered: yes Patient agrees, verbalizes understanding, and wants to proceed: yes Consent given by: Patient Informed consent discussion completed by Physician/ALEA with patient: Verbal Pre-procedure timeout performed: yes us Vega Correa MD IN CLINIC/BEDSIDE ORDERABLES Fin al Result * (ABNORMAL) TRANSTHORACIC ECHOCARDIOGRAM (TTE) COMPLETE (04/19/2025 7:42 AM EDT) Left [facility] [place] 6.8 cm CV PACS Left [facility] [place] 5.6 cm CV PACS [place] Area Sys [...] CV ECHO PROCEDURES Final Resul t * Basic metabolic panel (09/04/2024 2:43 PM EST) Sodium 135 133 - 145 mmol/L LAB CHEMISTRY METHOD 09/04/2024 4:58 PM EST [facility] Potassium 4.3 3.5 - 5.5 mmol/L LAB CHEMISTRY METHOD 09/04/2024 4:58 PM EST [facility] Chloride 107 96 - 110 mmol/L LAB CHEMISTRY METHOD 09/04/2024 4:58 PM EST [facility] CO2 24 21 - 32 mmol/L LAB CHEMISTRY METHOD 09/04/2024 4:58 PM EST [facility] Anion Gap 4 3 - 11 LAB CHEMISTRY METHOD 09/04/2024 4:58 PM EST [facility] Glucose 93 70 - 100 mg/dL LAB CHEMISTRY METHOD 09/04/2024 4:58 PM [facility] BUN 13 5 - 25 mg/dL LAB CHEMISTRY METHOD 09/04/2024 4:58 PM [facility] Creatinine 1.00 0.50 - 1.10 mg/dL LAB CHEMISTRY METHOD 09/04/2024 4:58 PM EST [facility] eGFR 66 >=60 mL/min/1. 73m2 LAB CHEMISTRY METHOD 09/04/2024 4:58 PM [facility] Comment:Calculation based on the Chronic Kidney Disease Epidemiology Collaboration (CKD-EPI) equation refit without adjustment for race. BUN/Creatinine Ratio 13.0 LAB CHEMISTRY METHOD 09/04/2024 4:58 PM [facility] Calcium 8.6 8.5 - 10.5 mg/dL LAB CHEMISTRY METHOD 09/04/2024 4:58 PM [facility] Blood Venous blood specimen / Unknown Venipuncture / Unknown 09/04/2024 2:43 PM EST 09/04/2024 2:43 PM EST [facility] LAB BLOOD ORDERABLES Final Result Performing Organization Address City/State/RUST Co de Phone Number [facility] [address] [place] [address], * COLONOSCOPY Anesthesia - MAC; [facility] [...] screening purposes. Narrative 08/31/2024 1:33 PM EST [facility] Patient Name: Rich Styles Procedure [...] Scope In: Scope Out: Endoscopy Department at [facility] - [address] [place] [phone] Procedure Note Alvaro Lebron MD - 08/31/2024 [facility] Patient Name: Rich Styles Procedure [...] Scope In: Scope Out: Endoscopy Department at [facility] - [address] [place] [phone] IMPRESSION: - Diverticulosis in the left colon. [...] LAB CHEMISTRY METHOD 07/26/2024 12:20 PM EST [facility] Triglycerides 96 0 - 150 mg/dL LAB CHEMISTRY METHOD 07/26/2024 12:20 PM EST [facility] HDL 61 >=40 mg/dL LAB CHEMISTRY METHOD 07/26/2024 12:20 PM EST [facility] LDL Calculated 74 0 - 100 mg/dL LAB CHEMISTRY METHOD 07/26/2024 12:20 PM EST [facility] VLDL Cholesterol Robin 19.2 mg/dL LAB CHEMISTRY METHOD 07/26/2024 12:20 PM EST [facility] Non HDL Chol. (LDL+VLDL) 93 <145 mg/dL LAB CHEMISTRY METHOD 07/26/2024 12:20 PM EST [facility] Chol/HDL Ratio 2.5 0.0 - 4.4 LAB CHEMISTRY METHOD 07/26/2024 12:20 PM EST [facility] Blood Venous blood specimen / Unknown Venipuncture / Unknown 07/26/2024 9:59 AM EST 07/26/2024 9:59 AM EST [facility] BLOOD ORDERABLES Final Result [facility] [address] [place] [address], * DIAGNOSTIC MAMMOGRAPHY WITH CAD UNILATERAL (06/28/2024 [...] has not decreased, biopsy should be considered [address] [id number] Procedure Note Lizzie Henriquez MD - 07/07/2024 [...] concern has notdecreased, biopsy should be considered [facility] [address] [place] [phone] [facility] IM BI PROCEDURES Final Result from Last 3 Months or Most Recently Relevant to Health Maintenance Insurance [facility] MEDICARE Care Teams Music Arranger Relationship Specialty Start Date End Date Brooke Osorio MD [address] [place] [id number] PCP - General Internal Medicine 07/10/24
== END 2025-06-25 15:28 | disposition home or self-care (01) ==
LOC: HO.HSMS 14:36
PROVIDERS: PCP Internal Medicine; Visit Provider Psychiatry & Neurology Neurology
DX: R41.89 Other symptoms and signs involving cognitive functions and awareness (principal); G43.119 Migraine with aura, intractable, without status migrainosus; G47.33 Obstructive sleep apnea (adult) (pediatric); F33.0 Major depressive disorder, recurrent, mild; F41.9 Anxiety disorder, unspecified; G43.E09 Chronic migraine with aura, not intractable, without status migrainosus
CPT/HCPCS: 99214

== ENCOUNTER 2025-08-06 09:49 | Outpatient (AMB) | payer OTHER, MEDICARE, SELFPAY ==
--- NOTE | 2025-08-06 09:49 | A.OFFVIS_ITS ---
Intake Visit Reasons: 3mnth per MD Intake Note: Patient presents follow up Cognitive/KATLYN Medication. Compliance in chart(83/90days, >=4hrs-77%, Average Usage-5hr 22min, Med Pressure-11.4cm, Med Leaks-4.4, AHI-2.5) Patient states cognitive has been declining Allergies bee venom protein (honey bee) Allergy (Unknown, Verified 08/06/25 09:49) Swelling chantix Allergy (Mild, Uncoded 07/10/24 10:58) behavior Wellbutrin Adverse Reaction (Unknown, Uncoded 07/10/24 10:57) Hives HPI Comments Details: 59 year old female presents for tele-health appt, for forgetfulness, Tardive Dyskinesia like abnormal movements of the face, and Chronic Migraines. Memory: She has h/o temporal brain trauma and PTSD since she was a teenager, and an IQ of 142 in the past, now can not retain information and her memory has been getting worse. She lost her dentures and could not find them, she gets lost in her own house, she woke up in the middle of the night and urinated on her 's office chair. She has left the stove on with a pot of water boiling. Sleep: She has KATLYN and is on CPAP 10-16 and Compliance 97%Usage hrs 6 hrs, AHI 2.6 She has KATLYN and she is compliant with use, she is being managed by her Medical Transcription. She has night terrors which are managed with trazadone. She sees her psychologist once a week, her mood is irritable, she is snappy with her . The tardive dyskinesia like movements in face oral, mouth, upper bilateral extremities, are mild and this does not bother her. Migraines are well controlled 1/week now. History from last visit- 03/2025 Today she c/o cognitive deficits due to trauma as a teenager. states he notices she is forgetting events, day trips, if prompted she will recall, and is very confused with episodes of loss of time. She forgets to turn off the stove and mixes, or repeats words. Her STM and LTM has progressed and if tasks are not recorded on her phone she will forget them. She has MDD with anxiety, alpraolam TID, cyclobenzaprine for lower back pain chronic, Gabapentin 800mg po TID. She will stop seeing Dr. Powers, for PTSD start her therapist Yumiko Jones at the [facility], . [place]. She has chronic migraines were controlled with Amigov 140mg and then ubrelvy 50mg po has 10 pills and will take it as needed. Usually has >15 headache days a month 10/10 pain, debilitating, w photo/phonophobia, floaters, burry vision, n/v/ vertigo as if she is spinning and balance difficulties. Her triggers are smells, dehydration, stress. Imitrex tablets, 2x per headache, 100mg, this manages her headaches and prevents them from developing into migraines. She still wakes up with migraines 4-5x a week and they can last for days. Imitrex injections are effective with onset of migraine, preventive is Aimovig. She is concerned about tremors, nueropathy, parasthesias in bilateral legs worse at night, feet and hands, EMG and NCS requested from [place]. She is staying active, drinks water daily, knees hurt when she walks. [facility] Medical History Gait difficulty Cognitive deficit due to 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 Post traumatic stress disorder Alcohol abuse, in remission Kidney stone Osteoarthritis, knee Migraine headache Fibromyalgia Depression with anxiety Hypercholesteremia Benign hypertension Hot flashes Gastro-esophageal reflux disease without esophagitis Mild obstructive sleep apnea Morbid obesity Vitamin D deficiency Polyneuropathy, unspecified Surgical History History of lithotripsy History of eye surgery Family History Mother Hypertension Alcohol abuse Father Bypass graft mechanical complication Social History Patient Tobacco Use Status: Current everyday Tobacco user Cigarette Packs Per Day: 0.25 Telehealth Telehealth Telehealth Platform: [facility] Location of provider rendering services: practice address Location of patient: address on file Patient Identification confirmed using: Name, : Yes Telehealth method: video Patient verbally consented to treatment: Yes Patient verbally consented to billing insurance company: Yes Patient informed of any privacy concerns related to visit: Yes Minutes spent on Phone/Video with Pt.: 20 Results Reviewed Results Reviewed: Findings: No restricted diffusion. No intra-axial mass or hemorrhage. Mild partially empty sella. Mild asymmetric right mesial temporal volume loss No midline shift. No hydrocephalus. Vascular flow voids are intact. Orbital contents are unremarkable. Minimal to mild mucosal thickening in the left frontal and both ethmoid sinuses. No focal bone lesion. IMPRESSION: Mild asymmetric right mesial temporal lobe volume loss. Mild partially empty sella. Otherwise unremarkable brain. Assessment & Plan Assessment & Plan (1) Memory change: Comment: Will work her up for Dementia / AD/ Code(s): R41.3 - Other amnesia Category: Medical (2) Cognitive decline: Comment: multifactorial cognitive disorder Code(s): R41.89 - Other symptoms and signs involving cognitive functions and awareness Category: Medical (3) Migraine headache with aura: Code(s): G43.109 - Migraine with aura, not intractable, without status migrainosus Category: Medical Qualifiers: Status migrainosus presence: without status migrainosus Intractability: intractable Qualified Code(s): G43.119 - Migraine with aura, intractable, without status migrainosus (4) KATLYN on CPAP: Code(s): G47.33 - Obstructive sleep apnea (adult) (pediatric) Category: Medical (5) Recurrent mild major depressive disorder with anxiety: Code(s): F33.0 - Major depressive disorder, recurrent, mild; F41.9 - Anxiety disorder, unspecified Category: Medical (6) Chronic migraine with aura: Code(s): G43.E09 - Chronic migraine with aura, not intractable, without status migrainosus Category: Medical Qualifiers: Status migrainosus presence: without status migrainosus Intractability: intractable Qualified Code(s): G43.E19 - Chronic migraine with aura, intractable, without status migrainosus Plan Memory Forgetfulness/ Cognitive Decline? Will work her up for Alzheimers Dementia, APO E4 Testing, Labs to include CBC, CMP, B12, Folate, Ferritin, Vit D, TSH. Neuro- psyche for cognitive Testing with [facility] Memory clinic, for Evaluation of memory MMSE is 25/30. Migraine Protocol Continue Ubrelvy 50mg PO PRN Migraine with onset of migraine with aura, preventive for migraines. Continue with Aimovog Auto injector 140mg subcutaneously q monthly maintenance therapy for migraines. RF Sumatriptan Insomnia and Fragmented Sleep, night terrors, continue with prazosin, and oxcarbazapine, may take melatonin 3-5mg PO at night. -Sleep Compliance reviewe d, though pt states she is followed by her Medical Transcription. Increase Memantine XR from 7mg po qhs to 14mg po qhs. VNA referral Tardive Dyskinesia like movements have improved.Continue Oxcarbamazapine. f/u in person at next appt in 2 months. Orders: Orders PET Brain beta amyloid Today R41.3 - Other amnesia Complete Blood Count no Diff Today R41.3 - Other amnesia, R41.89 - Other symptoms and signs involving cognitive functions and awareness Comprehensive Met. Panel Today R41.3 - Other amnesia, R41.89 - Other symptoms and signs involving cognitive functions and awareness Ferritin Today R41.3 - Other amnesia, R41.89 - Other symptoms and signs involving cognitive functions and awareness Methylmalonic Acid Today G47.9 - Sleep disorder, unspecified, R41.3 - Other amnesia, R41.89 - Other symptoms and signs involving cognitive functions and awareness, R53.83 - Other fatigue Vitamin D 25-OH Total Today R41.3 - Other amnesia, R41.89 - Other symptoms and signs involving cognitive functions and awareness Other Ref Test - [facility] Today F02.80 - Dementia in other diseases classified elsewhere, unspecified severity, without behavioral disturbance, psychotic disturbance, mood disturbance, and anxiety, G30.9 - Alzheimer's disease, unspecified, R41.3 - Other amnesia Hemoglobin A1c Today R41.3 - Other amnesia, R41.89 - Other symptoms and signs involving cognitive functions and awareness Homocysteine Today G47.9 - Sleep disorder, unspecified, R41.3 - Other amnesia, R41.89 - Other symptoms and signs involving cognitive functions and awareness, R53.83 - Other fatigue Vitamin B12 and Folate Today R41.3 - Other amnesia, R41.89 - Other symptoms and signs involving cognitive functions and awareness TSH reflex Free T4 Today R41.3 - Other amnesia, R41.89 - Other symptoms and signs involving cognitive functions and awareness Referrals Neuropsychiatry Referral R41.3 - Other amnesia, R41.89 - Other symptoms and signs involving cognitive functions and awareness Medications: Changed From memantine 7 mg PO DAILY 90 caps 1RF MDD 7mg R41.89 - Other symptoms and signs involving cognitive functions and awareness To memantine 14 mg (2 x 7 mg) PO DAILY 30 caps 1RF MDD 7mg R41.89 - Other symptoms and signs involving cognitive functions and awareness From memantine 14 mg (2 x 7 mg) PO DAILY 30 caps 1RF MDD 7mg R41.89 - Other symptoms and signs involving cognitive functions and awareness To memantine 14 mg (2 x 7 mg) PO DAILY 60 caps 1RF 1 month R41.89 - Other symptoms and signs involving cognitive functions and awareness Refilled sumatriptan succinate may repeat once in one hour max is 12mg per day. 6 mg (0.5 mL) subcut ONCE PRN 2 mL 6RF migraine headache 30 days G43.109 - Migraine with aura, not intractable, without status migrainosus Patient Instructions: Neuro psych testing -will be at [facility], please f/u with appt. [facility] for Amyloid reducing therapy. [place] [facility] [place] protocol continue Sumatriptan is refilled today. Coding Level of Care Code Tele Est Pt Level 4 (42832) Diagnoses Memory change R41.3 Cognitive decline R41.89 Intractable migraine with aura without status migrainosus G43.119 Status migrainosus presence: without status migrainosus Intractability: intractable KATLYN on CPAP G47.33 Recurrent mild major depressive disorder with anxiety F33.0; F41.9 Intractable chronic migraine with aura and without status migrainosus G43.E19 Status migrainosus presence: without status migrainosus Intractability: intractable
--- OUTSIDE RECORDS SUMMARY | 2025-08-06 10:55 | XMS_ITS | Clinical Summary ---
Author Organization [facility] Address [address] [place] [address] Care Team Providers Care Skein Dyer Name Role Phone Unavailable Primary Care Provider Unavailabl e Active Problems Problem Noted Date Diagnosed Date AMNA (stress urinary incontinence, female) 2022 Overview: Added automatically from request for surgery [id number] Overactive bladder 04/21/2023 Overview: Added automatically from request for surgery [id number] IUD threads lost 04/21/2023 Overview: Added automatically from request for surgery [id number] Social History Tobacco Use Types Packs/Day Years [...]
--- OUTSIDE RECORDS SUMMARY | 2025-08-06 10:55 | XMS_ITS | Clinical Summary ---
Author Organization [facility] [address] [facility] Address [address] [place] [address] Phone Care Team Providers Care Block Trimmer Name Role Phone Brooke Osorio MD Primary [...] DAY NEEDED FOR WHEEZING/SHORT NESS OF BREATH 06/27/20 22 Active ALPRAZolam (XANAX) 1 mg tablet TAKE 1 TABLET BY MOUTH 3 TIMES A DAY NEEDED FOR SLEEP 05/29/20 18 Active busPIRone (BUSPAR) 10 mg tablet TAKE 1/2 TABLET BY MOUTH TWICE A DAY FOR 1 WEEK THEN TAKE 1 TAB TWICE A DAY THEREAFTER 07/14/20 22 Active fluticasone propion-salmeteroL (Advair Diskus) 500-50 mcg/dose diskus [...] each nostril as directed 02/17/20 24 Active fluticasone-umecli dinium-vilanterol (TRELEGY ELLIPTA) 100-62.5-25 mcg inhaler Inhale by mouth. 06/07/20 24 Active SUMAtriptan (IMITREX) 6 mg/0.5 mL subcutaneous solution pen PLEASE SEE ATTACHED FOR DETAILED DIRECTIONS 08/12/20 24 Active Aimovig Autoinjector 140 mg/mL injection Inject [...] THE MORNING. 90 tablet 1 04/16/20 25 026 Active valsartan (DIOVAN) 320 mg tablet TAKE 1 TABLET BY MOUTH 1 TIME EACH DAY. 90 tablet 1 04/17/20 25 Active gabapentin (NEURONTIN) 800 mg tablet TAKE 1 TABLET BY MOUTH 3 TIMES A DAY 270 tablet 1 05/10/20 25 Active celecoxib (CeleBREX) 200 mg capsule Take 1 capsule (200 mg total) by mouth 2 (two) times a day. 60 each 2 06/26/20 25 026 Active diphenoxylate-atro pine (LOMOTIL) 2.5-0.025 mg per tablet Take 1 tablet by mouth 4 (four) times a day if needed for diarrhea. Max Daily Amount: 4 tablets 100 tablet 07/01/20 25 025 Active ondansetron ODT (ZOFRAN-ODT) 8 mg disintegrating tablet Dissolve 1 tablet (8 mg total) on top of the tongue every 8 (eight) hours if needed for nausea or vomiting. 15 tablet 2 07/17/20 25 Active cyclobenzaprine (FLEXERIL) 10 mg tablet Take 1 tablet (10 mg total) by mouth 3 (three) times a day if needed for muscle spasms. 30 tablet 07/18/20 25 026 Active ondansetron ODT (ZOFRAN-ODT) 8 mg disintegrating tablet TAKE 1 TABLET BY MOUTH DAILY NEEDED FOR NAUSEA. 15 tablet 05/09/20 25 025 Discontin ued(Reord er) cyclobenzaprine (FLEXERIL) 10 mg tablet Take 1 tablet (10 mg total) by mouth 3 (three) times a day if needed for muscle spasms. 30 tablet 06/27/20 25 025 Discontin ued(Reord er) Active Problems Problem Noted Date Diagnosed Date Concentric left ventricular hypertrophy 04/19/20 Medical marijuana use 04/10/2025 Memory loss 01/16/2025 Prediabetes 09/05/2024 Polysubstance dependence (CMS/[facility] V24, CMS/[facility] V 28) 06/22/2024 Nephrolithiasis 06/22/2024 Panic disorder 06/22/2024 IUD threads lost 04/21/2023 Overview (06/14/2024): Added automatically from request for surgery [id number] Overactive bladder 04/21/2023 Overview (06/14/2024): Added automatically from request for surgery [id number] AMNA (stress urinary incontinence, female) 2022 Overview (06/14/2024): Added automatically from request for surgery [id number] Peripheral polyneuropathy 08/26/2021 Vitamin D deficiency 08/26/2021 Morbid obesity ([facility] V24, [facility] V28) 2019 GERD (gastroesophageal reflux disease) 8 KATLYN (obstructive sleep apnea) 01/14/2018 Overview (06/14/2024): No diagnostic study on file.? 08/06/2021 [facility] Polysomnogram PAP treatment study. Date [...] 10/04/2017 Overview (06/14/2024): Psychologist, Dr Gwen Torres, [facility] PTSD (post-traumatic stress disorder) 10/04/2017 Fibromyalgia 10/04/2017 Overview (06/14/2024): historic Pt tried and failed Gabapentin 300mg prescribed by previous PCP Hypercholesteremia 10/04/2017 Hypertension 10/04/2017 Kidney stones 10/04/2017 Migraine headache 10/04/2017 Overview (06/14/2024): Sees Dr Valverde Osteoarthritis, knee 10/04/2017 Encounters Date Type Department Care Team Description 07/01/2025 11:00 AM EDT Evaluation [facility] [address] [phone] Bk Gil[place], OT Traumatic tear of left rotator cuff, unspecified tear extent, initial encounter 07/01/2025 Plan of Care Documentation [facility] [address] [phone] 06/26/2025 10:30 AM EDT Office Visit [facility] [address] [place] [phone] Brooke Sun MD 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 arthropathy (Primary Dx); Chronic bilateral low back pain without sciatica; Thrush; Fibromyalgia 06/24/2025 Telephone Orthopedic Surgery [facility] [address] [facility] [address] [place] [phone] Vega Correa MD 06/24/2025 Telephone [facility] [address] [place] [phone] Brooke Sun MD 06/19/2025 11:30 AM EDT Consult Orthopedic Surgery [facility] 175 [facility] [address] [place] [phone] Vega Correa MD Left shoulder pain (Primary Dx); Traumatic tear of left rotator cuff, unspecified tear extent, initial encounter 06/11/2025 3:15 PM EDT Office Visit [address] [phone] Joesph Perez PA Memory loss (Primary Dx); Early onset Alzheimer's dementia, unspecified dementia severity, unspecified whether behavioral, psychotic, or mood disturbance or anxiety (CMS/HCC V24, CMS/HCC V28); Cognitive deficit due to 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; Hypertension, unspecified type; Prediabetes 06/11/[address] [phone] Brooke Sun MD from Last 3 Months Immunizations Immunization Administration [...] Peripheral neuropathy Vitamin D deficiency Morbid obesity ([facility] V24, [facility] V28) Alcohol abuse IN REM[place]ION Depression Anxiety [...] Used Date Smoking Tobacco: Every Day Cigarettes 0.3 Last attempted to quit: 10/06/2017 Smokeless Tobacco: Never Tobacco Cessation:Ready to Q uit: Not Asked; Counseling Given: Not Answered Alcohol Use Standard [...] for your loved ones. For example, child care center administrator or elderly care for an older adult? [...] Sign Reading Time Taken Comments Blood Pressure 185/90 06/26/2025 10:27 AM EDT Pulse 74 06/26/2025 10:27 AM EDT Temperature 37.4 C (99.3 F) 06/26/2025 10:27 AM EDT Respiratory Rate 16 08/31/2024 1:53 PM EST Oxygen Saturation 97% 08/31/2024 1:53 PM EST Inhaled Oxygen Concentration - - Weight 104 kg (229 lb) 06/26/2025 10:27 AM EDT v erbal Height 157.5 cm (5' 2 ) 06/19/2025 12:10 PM EDT Body Mass Index 41.88 06/19/2025 12:10 PM EDT Plan of Treatment Upcoming Encounters Date Type Department Care Team (Late st Contact Info) Description 08/12/2025 11:15 AM EST Office Visit Adult Medicine [facility] [address] [place] [phone] Joesph Perez PA [address] [place] [address] 08/28/2025 11:15 AM EST Office Visit Adult [facility] [address] [place] [phone] Joesph Perez PA [address] [place] [address] 10/17/2025 3:00 PM EST Consult Nephrology - [place] [address] [place] [phone] Nickolas Wright MD [address] [phone] Health Maintenance Due Date Last Done Comments DTaP,Tdap,and Td Vaccines (1 - Tdap) 1986 Hepatitis A Vaccines (1 of 2 - Risk 2-dose series) 1986 Hepatitis B Vaccines (1 of 3 - 19+ 3-dose series) 1986 Pneumococcal Vaccine: 50+ Years (1 of 2 - PCV) 1986 Cervical Cancer Screening: Pap Smear 1988 RSV Immunization Adult Patients (1 - Risk 50-74 years 1-dose series) 2017 Zoster Vaccines (1 of 2) 2017 HIV Screening 08/14/2022 Hepatitis C Screening 08/14/2022 COVID-19 Vaccine (3 - season) 2025 01/01/2021, 12/04/2020 Influenza Vaccine (#1) 2025 8, 05/11/2018, 11/18/2011 Hypertension/CHF/CAD Annual BMP Blood Test 09/04/2025 09/04/2024, 07/26/2024, 04/11/2023 Social Influencers of Health Screening 04/04/2026 04/04/2025 Breast Cancer Screening 06/28/2026 06/28/20, 06/28/2024, 12/05/2023, Additional history exists Cholesterol Screening (Lipid Panel) 07/26/2029 07/26/2024, 07/18/2023 [...] 20 months Aged Out No longer eligible based on patient's age to complete this topic Varicella Vaccines Aged Out No longer eligible based on patient's age to complete this topic Goals Goal Patient Goal Type Associated Problems Recent Progress Patient-Stated? Author Pt goal General Yes Bk Gillette, OT Note: To be pain free, but I don't think that's going to happen STG 4-6 visits General No Bk Gil[place], OT Note: Patient will report <=8/10 pain in L sh, Patient will demo L sh AROM improved by 10* for increased ease of dressing Patient will demo L dental service chief strength >= 5 to be able to hold a cup, Patient will demo improved functional use of Left upper extremity as evidenced by Quick Dash score <= 90 Patient will perform initial HEP MOD I LTG 12 visits General No Bk Gil[place], OT Note: Patient will report <=5/10 pain in L sh, Patient will demo L sh AROM WFL for basic ADLs, Patient will demo L dental service chief strength >= 15# to be able to hold container while opening with R hand, Patient will demo improved functional use of Left upper extremity as evidenced by Quick Dash score <= 45 to be able to wipe the counters Patient will perform HEP MOD I Procedures Procedure Name Priority Date/Time Associated Diagnosis Comments XR SHOULDER 2+ VIEWS LEFT Routine 06/19/2025 12:08 PM EDT Left shoulder pain [place] ARTHROCENTESIS/ASPIR ATION/INJECTION MAJOR JOINT/BURSA W/O U/S GUIDANCE Routine 06/19/2025 11:30 AM EDT Traumatic tear of left rotator cuff, unspecified tear extent, initial encounter BASIC METABOLIC PANEL Routine 09/04/2024 2:43 PM EST Hyponatremia COLONOSCOPY Routine 08/31/2024 1:32 PM EST Colon cancer screening LIPID PANEL WITH REFLEX TO DIRECT LDL Routine 07/26/2024 9:59 AM EST Routine general medical examination at a [facility] facility DIAGNOSTIC MAMMOGRAPHY WITH CAD UNILATERAL Routine [...] acromioclavicular joint, otherwise no acute osseous abnormalities. Vega Correa MD IMG XR PROCEDURES Final Result * [place] ARTHROCENTESIS/ASPIRATION/INJECTION MAJOR JOINT/BURSA W/O U/S GUIDANCE (06/19/2025 [...] with patient: Verbal Pre-procedure timeout performed: yes Vega Correa MD IN CLINIC/BEDSIDE ORDERABLES Fin al Result * Basic metabolic panel (09/04/2024 2:43 PM EST) Sodium 135 133 - 145 mmol/L LAB CHEMISTRY METHOD 09/04/2024 4:58 PM [facility] Potassium 4.3 3.5 - 5.5 mmol/L LAB CHEMISTRY METHOD 09/04/2024 4:58 PM [facility] Chloride 107 96 - 110 mmol/L LAB CHEMISTRY METHOD 09/04/2024 4:58 PM [facility] CO2 24 21 - 32 mmol/L LAB CHEMISTRY METHOD 09/04/2024 4:58 PM [facility] Anion Gap 4 3 - 11 LAB CHEMISTRY METHOD 09/04/2024 4:58 PM [facility] Glucose 93 70 - 100 mg/dL LAB CHEMISTRY METHOD 09/04/2024 4:58 PM EST [facility] BUN 13 5 - 25 mg/dL LAB CHEMISTRY METHOD 09/04/2024 4:58 PM [facility] Creatinine 1.00 0.50 - 1.10 mg/dL LAB CHEMISTRY METHOD 09/04/2024 4:58 PM EST [facility] eGFR 66 >=60 mL/min/1. 73m2 LAB CHEMISTRY METHOD 09/04/2024 4:58 PM EST [facility] Comment:Calculation based on the Chronic Kidney Disease Epidemiology Collaboration (CKD-EPI) equation refit without adjustment for race. BUN/Creatinine Ratio 13.0 LAB CHEMISTRY METHOD 09/04/2024 4:58 PM [facility] Calcium 8.6 8.5 - 10.5 mg/dL LAB CHEMISTRY METHOD 09/04/2024 4:58 PM EST [facility] Blood Venous blood specimen / Unknown Venipuncture / Unknown 09/04/2024 2:43 PM EST 09/04/2024 2:43 PM EST Sis SO[facility]ES LAB BLOOD ORDERABLES Final Result [facility] [address] [place] [address], * COLONOSCOPY Anesthesia - [facility]; [facility] ENDOSCOPY (08/31/2024 1:32 PM EST) [...] screening purposes. Narrative 08/31/2024 1:33 PM EST [facility] GI Patient Name: Rich Styles Procedure [...] Scope In: Scope Out: Endoscopy Department at [facility] - [address] [place] [phone] Procedure Note Alvaro Lberon MD - 08/31/2024 [facility] Patient Name: Rich Styles Procedure [...] Scope In: Scope Out: Endoscopy Department at [facility] - [address] [place] [phone] IMPRESSION: - Diverticulosis in the left colon. [...] mg/dL LAB CHEMISTRY METHOD 07/26/2024 12:20 PM [facility] Triglycerides 96 0 - 150 mg/dL LAB CHEMISTRY METHOD 07/26/2024 12:20 PM EST [facility] HDL 61 >=40 mg/dL LAB CHEMISTRY METHOD 07/26/2024 12:20 PM EST [facility] LDL Calculated 74 0 - 100 mg/dL LAB CHEMISTRY METHOD 07/26/2024 12:20 PM [facility] VLDL Cholesterol Robin 19.2 mg/dL LAB CHEMISTRY METHOD 07/26/2024 12:20 PM [facility] Non HDL Chol. (LDL+VLDL) 93 <145 mg/dL LAB CHEMISTRY METHOD 07/26/2024 12:20 PM EST [facility] Chol/HDL Ratio 2.5 0.0 - 4.4 LAB CHEMISTRY METHOD 07/26/2024 12:20 PM [facility] Blood Venous blood specimen / Unknown Venipuncture / Unknown 07/26/2024 9:59 AM EST 07/26/2024 9:59 AM EST [facility] LAB BLOOD ORDERABLES Final Result [facility] [address] [place] [address], [place] [phone] * DIAGNOSTIC MAMMOGRAPHY WITH CAD UNILATERAL (06/28/2024 [...] has not decreased, biopsy should be considered [facility] [address] [place] [id number] Procedure Note Lizzie Henriquez MD - 07/07/2024 [...] concern has notdecreased, biopsy should be considered [facility] [address] [phone] Joesph SOARES IMG BI PROCEDURES Final Result from Last 3 Months or Most Recently Relevant to Health Maintenance Insurance [facility] MEDICARE Care Teams Block Trimmer Relationship Specialty Start Date End Date Brooke Osorio MD [address] [place] [phone] PCP - General Internal Medicine 07/10/24
== END 2025-08-06 15:13 | disposition home or self-care (01) ==
LOC: HO.HSMS 09:49
PROVIDERS: PCP Internal Medicine; Visit Provider Physician Assistant Medical
DX: R41.3 Other amnesia (principal); R41.89 Other symptoms and signs involving cognitive functions and awareness; G47.33 Obstructive sleep apnea (adult) (pediatric); F33.0 Major depressive disorder, recurrent, mild; F41.9 Anxiety disorder, unspecified; G43.E19 Chronic migraine with aura, intractable, without status migrainosus
CPT/HCPCS: 99214

== ENCOUNTER 2025-09-04 08:25 | Outpatient (REF) | payer OTHER, SELFPAY ==
--- OUTSIDE RECORDS SUMMARY | 2025-09-04 08:30 | XMS_ITS | Encounter Summary ---
Author Organization [facility] Address [address] [place] [address] Care Team Providers Care Physician Assistant Primary Care Name Role Phone Brooke Osorio MD Primary Care Prov ider Encounter Details Date Type Department Care Team (Late st Contact Info) Description 08/15/2025 Results Follow-Up Adult [facility] [address] [place] [phone] Kingston Philip, RN Social History Tobacco Use Types Packs/Day Years [...] your loved ones. For example, child care leader or elderly care for an older adult? [...] PM EDT documented as of this encounter Plan of Treatment Upcoming Encounters Date Type Department Care Team (Late st Contact Info) Description 10/17/2025 3:00 PM EST Consult Nephrology - [place] [address] [place] [phone] Nickolas Wright MD [address] [phone] 12/09/2025 11:00 AM EDT Office Visit Adult Medicine - [place] [address] [place] [phone] Brooke Osorio MD [address] [place], [place] documented as of this encounter Goals Goal Patient Goal Type Associated Problems [...] ease of dressing Patient will demo L belt splicer strength >= 5 to be able to [...] for basic ADLs, Patient will demo L belt splicer strength >= 15# to be able to hold container while opening with R hand, Patient will demo improved functional use of Left upper extremity as evidenced by Quick Dash score <= 45 to be able to wipe the counters Patient will perform HEP MOD I documented as of this encounter Visit Diagnoses Not on filedocumented in this encounter Additional Health Concerns Assessment Noted Time PHQ-9 Depression Total Score: 3 08/12/20 25 11:11 AM EST documented as of this encounter Care Teams Physician Assistant Primary Care Relationship Specialty Start Date End Date Brooke Osorio MD [address] [place], [place] PCP - General Internal Medicine 07/10/24 documented as of this encounter
--- OUTSIDE RECORDS SUMMARY | 2025-09-04 08:30 | XMS_ITS | Clinical Summary ---
Author Organization [facility] Prior to 02/02/25 Address [address] [place] [address] Care Team Providers Care Paving Stone Installer Name Role Phone Unavailable Primary Care Provider Unavailabl e Active Problems Problem Noted Date Diagnosed Date AMNA (stress urinary incontinence, female) 2022 Overview: Added automatically from request for surgery [id number] Overactive bladder 04/21/2023 Overview: Added automatically from request for surgery [id number] IUD threads lost 04/21/2023 Overview: Added automatically from request for surgery [id number] Social History Tobacco Use Types Packs/Day Years [...]
--- OUTSIDE RECORDS SUMMARY | 2025-09-04 08:31 | XMS_ITS | Clinical Summary ---
Author Organization [facility] 230 [facility] Address [address] [place] [address] Phone Care Team Providers Care Industrial Truck Mechanic Name Role Phone Brooke Osorio MD Primary [...] 1 TAB TWICE A DAY THEREAFTER Active ipratropium (ATROVENT) 21 mcg (0.03 %) [...] Use in each nostril as directed Active fluticasone-umecl idinium-vilantero l (TRELEGY ELLIPTA) 100-62.5-25 mcg inhaler Inhale by mouth. Active SUMAtriptan (IMITREX) 6 mg/0.5 mL subcutaneous solution pen PLEASE SEE ATTACHED FOR DETAILED DIRECTIONS Active Aimovig Autoinjector 140 mg/mL injection Inject 1 mL (140 mg total) under the skin. Active naproxen (NAPROSYN) 500 mg tablet TAKE 1 TABLET BY MOUTH TWICE A DAY WITH FOOD 180 tablet 1 Active omeprazole (PriLOSEC) [address] capsule Take 1 capsule (40 mg total) by mouth 1 (one) time each day. 90 capsule 1 Active gabapentin (NEURONTIN) 800 mg tablet TAKE 1 TABLET BY MOUTH 3 TIMES A DAY 270 tablet 1 Active celecoxib (CeleBREX) 200 mg capsule Take 1 capsule (200 mg total) by mouth 2 (two) times a day. 60 each 2 025 2025 Active ondansetron ODT (ZOFRAN-ODT) 8 mg disintegrating tablet Dissolve 1 tablet (8 mg total) on top of the tongue every 8 (eight) hours if needed for nausea or vomiting. 15 tablet 2 Active rosuvastatin (CRESTOR) 40 mg tablet TAKE 1 TABLET BY MOUTH EVERY DAY 90 tablet Active irbesartan (Avapro) 300 mg tablet Take 1 tablet (300 mg total) by mouth at bedtime. 30 each 11 025 2025 Active nystatin (MYCOSTATIN) 100,000 unit/gram powder Apply thin layer to affected area BID for 2 weeks then stop. Can repeat once monthly as needed 60 g Active cyclobenzaprine (FLEXERIL) 10 mg tablet Take 1 tablet (10 mg total) by mouth 3 (three) times a day if needed for muscle spasms. 30 tablet 025 2025 Active verapamil ER (VERELAN) 120 mg 24 hr capsule TAKE 1 CAPSULE (120 MG TOTAL) BY MOUTH AT BEDTIME. 90 capsule 1 Active indapamide (LOZOL) 2.5 mg tablet Take 1 tablet (2.5 mg total) by mouth 1 (one) time each day in the morning. 30 tablet 11 025 2025 Active fluticasone propion-salmetero L (Advair Diskus) 500-50 mcg/dose diskus inhaler INHALE 1 PUFF BY MOUTH 2 TIMES A DAY 022 2024 Discontinued(T herapy completed) rosuvastatin (CRESTOR) 40 mg tablet TAKE 1 TABLET BY MOUTH EVERY DAY 90 tablet 1 025 2024 Discontinued verapamil ER (VERELAN) 120 mg 24 hr capsule TAKE 1 CAPSULE (120 MG TOTAL) BY MOUTH AT BEDTIME. 90 capsule 1 025 2024 Discontinued indapamide (LOZOL) 1.25 mg tablet TAKE 1 TABLET (1.25 MG TOTAL) BY MOUTH 1 (ONE) TIME EACH DAY IN THE MORNING. 90 tablet 1 025 2024 Discontinued valsartan (DIOVAN) 320 mg tablet TAKE 1 TABLET BY MOUTH 1 TIME EACH DAY. 90 tablet 1 025 2024 Discontinued diphenoxylate-atr opine (LOMOTIL) 2.5-0.025 mg per tablet Take 1 tablet by mouth 4 (four) times a day if needed for diarrhea. Max Daily Amount: 4 tablets 100 tablet 025 2024 cyclobenzaprine (FLEXERIL) 10 mg tablet Take 1 tablet (10 mg total) by mouth 3 (three) times a day if needed for muscle spasms. 30 tablet 025 2024 Discontinued(R eorder) azithromycin (ZITHROMAX) 250 mg tablet Take 2 tablets (500 mg total) by mouth 1 (one) time each day for 1 day, THEN 1 tablet (250 mg total) 1 (one) time each day for 4 days. 6 each 025 2024 Active Problems Problem Noted Date Diagnosed Date Concentric left ventricular hypertrophy 04/19/20 25 Medical marijuana use 04/10/2025 Memory loss 01/16/2025 Prediabetes 09/05/2024 Polysubstance dependence 06/22/2024 Nephrolithiasis 06/22/2024 Panic disorder 06/22/2024 IUD threads lost 04/21/2023 Overview (06/14/2024): Added automatically from request for surgery [id number] Overactive bladder 04/21/2023 Overview (06/14/2024): Added automatically from request for surgery [id number] AMNA (stress urinary incontinence, female) 2022 Overview (06/14/2024): Added automatically from request for surgery [id number] Peripheral polyneuropathy 08/26/2021 Vitamin D deficiency 08/26/2021 [...] 10/04/2017 Overview (06/14/2024): Psychologist, Dr Gwen Torres, [facility] PTSD (post-traumatic stress disorder) 10/04/2017 Fibromyalgia 10/04/2017 Overview (06/14/2024): historic Pt tried and failed Gabapentin 300mg prescribed by previous PCP Hypercholesteremia 10/04/2017 Hypertension 10/04/2017 Kidney stones 10/04/2017 Migraine headache 10/04/2017 Overview (06/14/2024): Sees Dr Valverde Osteoarthritis, knee 10/04/2017 Encounters Date Type Department Care Team Description 08/28/2025 11:15 AM EST Office Visit [address] [phone] Joesph Perez PA Hypertension, unspecified type (Primary Dx); Memory loss; Injury of finger of right hand, initial encounter 08/15/2025 Results Follow-Up [address] [phone] Kingston Philip RN 08/12/2025 11:50 AM EST Lab Draw Station [address] [phone] Prediabetes; Hypertension, unspecified type; Hypercholesteremia 08/12/2025 11:15 AM EST Office Visit [address] [phone] Joesph Perez PA Acute bacterial sinusitis (Primary Dx); Fibromyalgia; Hypercholesteremia; Hypertension, unspecified type; Elevated hemoglobin A1c; Sri infection 07/01/2025 11:00 AM EDT Evaluation [facility] [address] [phone] Bk [place], OT Traumatic tear of left rotator cuff, unspecified tear extent, initial encounter 07/01/2025 Plan of Care Documentation [facility] [address] [phone] 06/26/2025 10:30 AM EDT Office Visit [address] [phone] Brooke Sun MD 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 arthropathy (Primary Dx); Chronic bilateral low back pain without sciatica; Thrush; Fibromyalgia 06/24/2025 Telephone Orthopedic Surgery - [place] 250 175 [facility] [address] [place] [phone] Vega Correa MD 06/24/2025 Telephone Adult [facility] [address] [place] [phone] Brooke Sun MD 06/19/2025 11:30 AM EDT Consult Orthopedic Surgery [facility] 175 [facility] [address] [place] [phone] Vega Correa MD Left shoulder pain (Primary Dx); Traumatic tear of left rotator cuff, unspecified tear extent, initial encounter 06/11/2025 3:15 PM EDT Office Visit [facility] [address] [place] [phone] Joesph Perez PA Memory loss (Primary Dx); Early onset Alzheimer's dementia, unspecified dementia severity, unspecified whether behavioral, psychotic, or mood disturbance or anxiety (CMS/HCC V24, CMS/HCC V28); 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 For example, child development consultant or elderly care for an older adult? [...] Orientation Straight 06/19/2025 2: 57 PM EDT Last Filed Vital Signs Vital Sign Reading Time Taken Comments Blood Pressure 154/82 08/28/2025 11:44 AM EST Pulse 90 08/28/2025 11:10 AM EST Temperature 36.9 C (98.4 F) 08/28/2025 11:10 AM EST Respiratory Rate 16 08/31/2024 1:53 PM EST Oxygen Saturation 97% 08/31/2024 1:53 PM EST Inhaled Oxygen Concentration - - Weight 106 kg (234 lb) 08/28/2025 11:10 AM EST v erbal Height 160 cm (5' 3 ) 08/12/2025 11:11 AM EST Body Mass Index 41.45 08/12/2025 11:11 AM EST Plan of Treatment Upcoming Encounters Date Type Department Care Team (Late st Contact Info) Description 10/17/2025 3:00 PM EST Consult Nephrology - [place] [address] [place] [phone] Nickolas Wright MD [address] [facility] [address] [place] [phone] 12/09/2025 11:00 AM EDT Office Visit Adult Medicine - [place] [address] [place] [phone] Brooke Osorio MD [address] [place] [phone] Health Maintenance Due Date Last Done Comments Drug Screen 1965 Non-Opioid Controlled Substance Agreement 1967 DTaP,Tdap,and Td Vaccines (1 - Tdap) 1986 [...] C Screening 08/14/2022 COVID-19 Vaccine (3 - 2024- season) 2025 01/01/2021, 12/04/2020 Influenza Vaccine (#1) 2025 8, 05/11/2018, 11/18/2011 Social Influencers of Health Screening 04/04/2026 04/04/2025 Breast Cancer Screening 06/28/2026 06/28/20 24, 06/28/2024, 12/05/2023, Additional history exists Hypertension/CHF/CAD Annual BMP Blood Test 08/12/2026 08/12/2025, 09/04/2024, 07/26/2024, Additional history exists Cholesterol Screening (Lipid Panel) 08/12/2030 08/12/2025, 07/26/2024, 07/18/2023 Colorectal Cancer Screening: Colonoscopy 08/31/2034 08/31/2024 Depression Screening Completed 08/12/2025 HIB Vaccines Aged Out No longer eligi [...] ease of dressing Patient will demo L keyboard teacher strength >= 5 to be able to [...] for basic ADLs, Patient will demo L keyboard teacher strength >= 15# to be able to hold container while opening with R hand, Patient will demo improved functional use of Left upper extremity as evidenced by Quick Dash score <= 45 to be able to wipe the counters Patient will perform HEP MOD I Procedures Procedure Name Priority Date/Time Associated Diagnosis Comments LIPID PANEL WITH REFLEX TO DIRECT LDL Routine 08/12/2025 11:51 AM EST Hypercholesteremia COMPREHENSIVE METABOLIC PANEL Routine 08/12/2025 11:51 AM EST Hypertension, unspecified type HEMOGLOBIN A1C Routine 08/12/2025 11:51 AM EST Prediabetes XR SHOULDER 2+ VIEWS LEFT Routine 06/19/2025 12:08 PM EDT Left shoulder pain MD ARTHROCENTESIS/ASPIRAT ION/INJECTION MAJOR JOINT/BURSA W/O U/S GUIDANCE Routine 06/19/2025 11:30 AM EDT Traumatic tear of left rotator cuff, unspecified tear extent, initial encounter COLONOSCOPY Routine 08/31/2024 1:32 PM EST Colon cancer screening DIAGNOSTIC MAMMOGRAPHY WITH CAD UNILATERAL Routine 06/28/2024 2:38 PM EDT Unspecified lump in unspecified breast from Last 3 Months or Most Recently Relevant to Health Maintenance Results * (ABNORMAL) Lipid panel with reflex to direct LDL (08/12/2025 11:51 AM EST) Cholesterol 172 0 - 200 mg/dL 08/12/2025 5:44 PM [facility] Triglycerides 166(H) 0 - 150 mg/dL 08/12/2025 5:44 PM [facility] HDL 64 >=40 mg/dL 08/12/2025 5:44 PM [facility] LDL Calculated 75 0 - 100 mg/dL 08/12/2025 5:44 PM [facility] Comment:Estimated LDL is irasema culated using the Friedewald equation: Total cholesterol - HDL cholesterol - (Triglycerides/5) VLDL Cholesterol Irasema 33.2 mg/dL 08/12/2025 5:44 PM [facility] Non HDL Chol. (LDL+VLDL) 108 <145 mg/dL 08/12/2025 5:44 PM [facility] Chol/HDL Ratio 2.7 0.0 - 4.4 08/12/2025 5:44 PM EST [facility] Blood Venous blood specimen / Unknown Venipuncture / Unknown 08/12/2025 11:51 AM EST 08/12/2025 11:51 AM EST us Joesph SOARES LAB BLOOD ORDERABLES Final Res ult Performing Organization Address [facility]/ZIP Co de Phone Number [facility] [address] [place] [address], [place] [phone] * Hemoglobin A1c (08/12/2025 11:51 AM EST) Pathologist [facility] Hemoglobin A1C 5.8 <6.5 % LAB CHEMISTRY METHOD 08/14/2025 10:49 PM EST [facility] Mean Bld Glu Estim. 120 mg/dL LAB CHEMISTRY METHOD 08/14/2025 10:49 PM [facility] Blood Venous blood specimen / Unknown Venipuncture / Unknown 08/12/2025 11:51 AM EST 08/12/2025 11:51 AM EST us Joesph SOARES LAB BLOOD ORDERABLES Final Res ult Performing Organization Address [facility]/ZIP Co de Phone Number [facility] [address] [place] [address], [place] [phone] * (ABNORMAL) Comprehensive metabolic panel (08/12/2025 11:51 AM EST) [facility] Sodium 133 133 - 145 mmol/L 08/12/2025 5:44 PM [facility] Potassium 4.6 3.5 - 5.5 mmol/L 08/12/2025 5:44 PM EST [facility] Chloride 100 96 - 110 mmol/L 08/12/2025 5:44 PM [facility] CO2 26 21 - 32 mmol/L 08/12/2025 5:44 PM EST [facility] Anion Gap 7 3 - 11 08/12/2025 5:44 PM [facility] Glucose 77 70 - 100 mg/dL 08/12/2025 5:44 PM [facility] BUN 13 5 - 25 mg/dL 08/12/2025 5:44 PM [facility] Creatinine 0.93 0.50 - 1.10 mg/dL 08/12/2025 5:44 PM [facility] eGFR 71 >=60 mL/min/1. 73m2 08/12/2025 5:44 PM [facility] Comment:Calculation based on the Chronic Kidney Disease Epidemiology Collaboration (CKD-EPI) equation refit without adjustment for race. BUN/Creatinine Ratio 14.0 08/12/2025 5:44 PM [facility] Calcium 8.9 8.5 - 10.5 mg/dL 08/12/2025 5:44 PM [facility] AST (SGOT) 15 10 - 42 unit/L 08/12/2025 5:44 PM [facility] ALT (SGPT) 16 10 - 60 unit/L 08/12/2025 5:44 PM [facility] Alkaline Phosphatase 127(H) 42 - 121 unit/L 08/12/2025 5:44 PM [facility] Total Protein 6.6 6.0 - 8.0 g/dL 08/12/2025 5:44 PM [facility] Albumin 4.5 3.2 - 5.0 g/dL 08/12/2025 5:44 PM [facility] Total Bilirubin 0.2 0.0 - 1.4 mg/dL 08/12/2025 5:44 PM [facility] Blood Venous blood specimen / Unknown Venipuncture / Unknown 08/12/2025 11:51 AM EST 08/12/2025 11:51 AM EST Joesph SOARES LAB BLOOD ORDERABLES Final Res ult [facility] [address] [place] [address], * XR Shoulder 2+ Views Left (06/19/2025 [...] MD IMG XR PROCEDURES Final Result * MD ARTHROCENTESIS/ASPIRATION/INJECTION MAJOR JOINT/BURSA W/O U/S GUIDANCE (06/19/2025 11:30 AM EDT) Narrative Vega Correa MD - 06/19/2025 11:30 AM EDT Vega [...] IN CLINIC/BEDSIDE ORDERABLES Fin al Result * COLONOSCOPY Anesthesia - MAC; [facility] (08/31/2024 1:32 PM EST) Anatomical Region [...] screening purposes. Narrative 08/31/2024 1:33 PM EST [facility] GI Patient Name: Rich Styles Procedure Date: [...] Scope In: Scope Out: Endoscopy Department at [facility] - [address] [place] [phone] Procedure Note Alvaro Lebron MD - 08/31/2024 [facility] GI Patient Name: Rich Styles Procedure Date: [...] Scope In: Scope Out: Endoscopy Department at [facility] - [address] [place] [phone] IMPRESSION: - Diverticulosis in the left colon. [...] MD GI~PROCEDURE ORDERABLES Final R esult * DIAGNOSTIC MAMMOGRAPHY WITH CAD UNILATERAL (06/28/2024 [...] has not decreased, biopsy should be considered [facility] [address] [id number] Procedure Note Lizzie Henriquez MD - 07/07/2024 [...] concern has notdecreased, biopsy should be considered [facility] [address] [place] [address] Joesph SOARES IMG BI PROCEDURES Final Result from Last 3 Months or Most Recently Relevant to Health Maintenance Insurance [facility] Care Teams Industrial Truck Mechanic Relationship Specialty Start Date End Date Brooke Osorio MD [address] [place] [id number] PCP - General Internal Medicine 07/10/24
[2025-09-04 11:47] LABS: Hematocrit 37.3 % (37.0-47.0); Hemoglobin 12.5 g/dl (12.0-16.0); Mean Corpuscular HGB Conc 33.5 g/dl (31.0-35.0); Mean Corpuscular Hemoglobin 29.2 pg (27.0-33.0); Mean Corpuscular Volume 87.1 fL (80.0-98.0); NRBC Abs Auto 0.000 X10*3/uL (0.0-0.012); NRBC Pct Auto 0.0 /100WBC (0.0-0.2); Platelet Count 279 X10*3/uL (160-400); Red Blood Count 4.28 X10*6/uL (4.20-5.50); White Blood Count 8.2 X10*3/uL (4.8-10.8)
[2025-09-04 12:03] LABS: Alanine Aminotransferase 13 U/L (0-31); Albumin Level 4.4 g/dL (3.5-5.0); Alkaline Phosphatase 118 U/L (39-117); Anion Gap 13 (12-20); Aspartate Amino Transferase 20 U/L (5-31); Blood Urea Nitrogen 24 mg/dL (9-16); Calcium 9.5 mg/dL (8.4-10.2); Carbon Dioxide 24 mmol/L (22-29); Chloride 107 mmol/L (96-108); Estimated Glomerular Filt Rate 56; Potassium 4.3 mmol/L (3.3-5.1); Sodium 140 mmol/L (135-145); Total Protein 6.7 g/dL (6.5-8.0)
[2025-09-04 12:24] LABS: Ferritin 38 ng/mL (10-250)
[2025-09-04 12:37] LABS: Folate 5.5 ng/mL (> or = 4.0); Vitamin B12 687 pg/mL (200-900)
== END 2025-09-04 08:26 | disposition home or self-care (01) ==
LOC: HO.WFDLDS 08:25
PROVIDERS: PCP Internal Medicine; Visit Provider Physician Assistant Medical
DX: Z13.1 Encounter for screening for diabetes mellitus (principal); Z13.0 Encounter for screening for diseases of the blood and blood-forming organs and certain disorders involving the immune mechanism; G47.9 Sleep disorder, unspecified; R53.83 Other fatigue; R41.3 Other amnesia; R41.89 Other symptoms and signs involving cognitive functions and awareness
CPT/HCPCS: 36415; 80053; 82306; 82542; 82607; 82728; 82746; 83036; 83921; 84443; 85027